=== PATIENT | female | born 1965 | race Hispanic/Latino ===

== ENCOUNTER 2022-05-24 23:47 | Inpatient (IN) | payer MEDICARE ==
[~2022-05-24] VITALS: Ht 165.1 cm; Wt 83.7 kg
[~2022-05-24 23:47] MED LIST: AEC81 PO; AMIT50TA3 PO; ATOR40TA71 PO; BISA10SU11 RC; CYCL-309 PO; GABA600T10 PO; HYDR200T4 PO; HYDR50CA50 PO; LEVO125T11 PO; LINA290C PO; LISI5TAB21 PO; ONDA-105 PO; PANT40TA55 PO; POLY17PO4 PO; PROM25TA7 PO; ROPI0.5T7 PO; SULF500T8 PO; TAMS-1 PO; TOPI50TA24 PO; TRAM50TA4 PO; TRAZ-253 PO; VENL75CA97 PO
[2022-05-25] MEDS ORDERED: ONDANSETRON 4MG INJ IVP ONE (00:30)
[2022-05-25] MEDS ORDERED: ACETAMINOPHEN 325 MG TAB PO PRN (01:30)
[2022-05-25 01:55] LABS: BASOPHILS % (AUTO) 1.9 % (0.0-5.0); EOSINOPHILS % (AUTO) 1.2 % (0.0-8.0); HEMATOCRIT 32.6 % (36-48); LYMPHOCYTES % (AUTO) 39.4 % (21.0-51.0); MEAN CORPUSCULAR HEMOGLOBIN 30.1 pg (27.0-33.0); MEAN CORPUSCULAR HGB CONC 33.4 g/dL (32.0-36.0); MEAN CORPUSCULAR VOLUME 90.1 fL (79-99); MONOCYTES % (AUTO) 6.4 % (3.0-13.0); NEUTROPHILS % (AUTO) 50.6 % (40.0-77.0); PLATELET COUNT (AUTO) 351 K/uL (130-400); RED BLOOD CELL COUNT(AUTO) 3.62 MIL/uL (4.00-5.50); RED CELL DISTRIBUTION WIDTH 14.7 % (11.0-15.5); WHITE BLOOD COUNT (AUTO) 8.1 K/uL (4.8-10.8)
[2022-05-25 02:03] LABS: CREATININE 0.7 mg/dL (0.5-1.5); POTASSIUM 3.5 mmol/L (3.5-5.1)
[2022-05-25 02:05] LABS: PROTHROMBIN TIME 10.9 SEC (9.6-11.6)
[2022-05-25] MEDS: ACETAMINOPHEN 325 MG TAB PO PRN ×2 (02:37→09:41)
[2022-05-25 06:00] VITALS: BP 135/71
[2022-05-25 08:00] VITALS: BP 108/51
[2022-05-25] MEDS: FAMOTIDINE 20MG VIAL IV SCH ×2 (08:55→20:02)
[2022-05-25] MEDS: INSULIN HUMULIN R 100 UNIT/ML 3ML SQ SCH ×2 (11:37→16:45)
[2022-05-25 12:00] VITALS: BP 150/77
[2022-05-25] MEDS ORDERED: LIDOCAINE HCL-MPF 1% 2ML VIAL IV PRN (12:00)
[2022-05-25] MEDS: ONDANSETRON 4MG INJ IV PRN (12:17)
[2022-05-25] MEDS: KETOROLAC 15MG/ML VIAL (15MG/ML) IV PRN ×2 (12:20→20:07)
[2022-05-25] MEDS: POTASSIUM CHLORIDE 20MEQ/100ML 100 ML IV PRN ×2 (12:33→17:15)
[2022-05-25 15:41] VITALS: BP 107/57
[2022-05-25 20:00] VITALS: BP 137/72
[2022-05-26] VITALS (7 sets, daily range): BP systolic 98–139; BP diastolic 53–73
[2022-05-26] MEDS: KETOROLAC 15MG/ML VIAL (15MG/ML) IV PRN ×3 (02:27→20:08)
[2022-05-26] MEDS: INSULIN HUMULIN R 100 UNIT/ML 3ML SQ SCH ×4 (05:41→18:00)
[2022-05-26] MEDS: ONDANSETRON 4MG INJ IV PRN ×2 (05:52→18:29)
[2022-05-26 06:54] LABS: BASOPHILS % (AUTO) 1.5 % (0.0-5.0); EOSINOPHILS % (AUTO) 0.9 % (0.0-8.0); HEMATOCRIT 33.7 % (36-48); LYMPHOCYTES % (AUTO) 33.7 % (21.0-51.0); MEAN CORPUSCULAR HEMOGLOBIN 30.1 pg (27.0-33.0); MEAN CORPUSCULAR HGB CONC 32.9 g/dL (32.0-36.0); MEAN CORPUSCULAR VOLUME 91.3 fL (79-99); MONOCYTES % (AUTO) 7.1 % (3.0-13.0); NEUTROPHILS % (AUTO) 56.2 % (40.0-77.0); PLATELET COUNT (AUTO) 279 K/uL (130-400); RED BLOOD CELL COUNT(AUTO) 3.69 MIL/uL (4.00-5.50); RED CELL DISTRIBUTION WIDTH 14.8 % (11.0-15.5); WHITE BLOOD COUNT (AUTO) 6.8 K/uL (4.8-10.8)
[2022-05-26 08:16] LABS: ALBUMIN 3.5 g/dL (3.5-5.0); CREATININE 0.7 mg/dL (0.5-1.5); TOTAL PROTEIN, SERUM 8.2 g/dL (6.0-8.3)
[2022-05-26] MEDS: FAMOTIDINE 20MG VIAL IV SCH ×2 (09:31→20:03)
[2022-05-26] MEDS: 0.9%NACL 1000ML 1,000 ML IV SCH (14:50)
[2022-05-27] MEDS: KETOROLAC 15MG/ML VIAL (15MG/ML) IV PRN ×3 (03:19→22:40)
[2022-05-27 04:18] VITALS: BP 128/53
[2022-05-27] MEDS: INSULIN HUMULIN R 100 UNIT/ML 3ML SQ SCH ×4 (06:00→18:00)
[2022-05-27] MEDS ORDERED: INSU100V3 SQ (06:09)
[2022-05-27] MEDS ORDERED: MERO1VIA23 IV (06:09)
[2022-05-27] MEDS ORDERED: HYDR59LO10 TP (06:09)
[2022-05-27] MEDS ORDERED: [UNRECOGNIZED DRUG - CODE] PO (06:09)
[2022-05-27] MEDS ORDERED: INSU100V52 SQ (06:09)
[2022-05-27] MEDS ORDERED: TAMS-1 PO (06:09)
[2022-05-27] MEDS ORDERED: ENOX40DI8 SQ (06:09)
[2022-05-27] MEDS ORDERED: ACET-2247 PO (06:09)
[2022-05-27] MEDS ORDERED: PHEN-846 PO (06:09)
[2022-05-27] MEDS ORDERED: DOCU100T PO (06:09)
[2022-05-27 08:47] VITALS: BP 114/62
[2022-05-27] MEDS: 0.9%NACL 1000ML 1,000 ML IV SCH ×3 (09:25→20:00)
[2022-05-27] MEDS: FAMOTIDINE 20MG VIAL IV SCH ×2 (09:26→21:35)
[2022-05-27 12:10] VITALS: BP 135/62
[2022-05-27 12:20] VITALS: BP 125/55
[2022-05-27] MEDS ORDERED: LACTULOSE 20 GM/30 ML UDCUP PO SCH ×2 (12:30→16:30)
[2022-05-27 17:58] VITALS: BP 131/77
[2022-05-27 20:00] VITALS: BP 131/66
[2022-05-28] VITALS: BP 130/51
[2022-05-28 04:00] VITALS: BP 125/60
[2022-05-28] MEDS: KETOROLAC 15MG/ML VIAL (15MG/ML) IV PRN ×3 (05:25→22:03)
[2022-05-28] MEDS: 0.9%NACL 1000ML 1,000 ML IV SCH (05:54)
[2022-05-28] MEDS: INSULIN HUMULIN R 100 UNIT/ML 3ML SQ SCH ×5 (05:54→23:18)
[2022-05-28 08:12] VITALS: BP 129/65
[2022-05-28 08:28] LABS: MEAN CORPUSCULAR HEMOGLOBIN 30.5 pg (27.0-33.0); MEAN CORPUSCULAR HGB CONC 34.6 g/dL (32.0-36.0); MEAN CORPUSCULAR VOLUME 88.1 fL (79-99); RED BLOOD CELL COUNT(AUTO) 3.18 MIL/uL (4.00-5.50); WHITE BLOOD COUNT (AUTO) 5.5 K/uL (4.8-10.8)
[2022-05-28 08:40] LABS: CREATININE 0.5 mg/dL (0.5-1.5); POTASSIUM 3.4 mmol/L (3.5-5.1)
[2022-05-28] MEDS: FAMOTIDINE 20MG VIAL IV SCH ×2 (09:00→20:28)
[2022-05-28 11:45] VITALS: BP 131/65
[2022-05-28] MEDS: LEVOFLOXACIN 750 MG/D5W 150 ML 150 ML IV SCH (12:43)
[2022-05-28] MEDS: POTASSIUM CHLORIDE 20MEQ/100ML 100 ML IV PRN (15:12)
[2022-05-28 16:14] VITALS: BP 156/86
[2022-05-28] MEDS: DOCUSATE SODIUM 100 MG CAP PO SCH (20:28)
[2022-05-28] MEDS: GABAPENTIN 300 MG CAPSULE PO SCH (20:30)
[2022-05-28] MEDS: SULFASALAZINE 500 MG TAB.DR PO SCH (20:30)
[2022-05-28 20:39] VITALS: BP 139/66
[2022-05-28] MEDS ORDERED: ROPINIROLE HCL 1 MG TABLET PO SCH (21:00)
[2022-05-28] MEDS ORDERED: AMITRIPTYLINE 25 MG TABLET PO SCH (21:00)
[2022-05-29] VITALS (8 sets, daily range): BP systolic 124–151; BP diastolic 51–89
[2022-05-29 05:30] LABS: HEMATOCRIT 31.8 % (36-48); MEAN CORPUSCULAR HEMOGLOBIN 30.4 pg (27.0-33.0); MEAN CORPUSCULAR HGB CONC 34.6 g/dL (32.0-36.0); MEAN CORPUSCULAR VOLUME 87.8 fL (79-99); RED BLOOD CELL COUNT(AUTO) 3.62 MIL/uL (4.00-5.50); RED CELL DISTRIBUTION WIDTH 14.3 % (11.0-15.5)
[2022-05-29 05:47] LABS: CREATININE 0.6 mg/dL (0.5-1.5); POTASSIUM 3.6 mmol/L (3.5-5.1)
[2022-05-29] MEDS: ONDANSETRON 4MG INJ IV PRN ×2 (05:57→17:20)
[2022-05-29] MEDS: KETOROLAC 15MG/ML VIAL (15MG/ML) IV PRN ×2 (05:57→17:20)
[2022-05-29] MEDS: INSULIN HUMULIN R 100 UNIT/ML 3ML SQ SCH ×3 (06:00→18:00)
[2022-05-29] MEDS ORDERED: LEVOTHYROXINE 125 MCG TABLET PO SCH (07:30)
[2022-05-29] MEDS ORDERED: CHOLECALCIFEROL 1250 MCG PO SCH (09:00)
[2022-05-29] MEDS ORDERED: HYDROXYCHLOROQUINE SULFATE 200 MG TAB PO SCH (09:00)
[2022-05-29] MEDS ORDERED: ATORVASTATIN 40 MG TABLET PO SCH (09:00)
[2022-05-29] MEDS ORDERED: TAMSULOSIN HCL 0.4 MG CAP.ER.24H PO SCH (09:00)
[2022-05-29] MEDS ORDERED: LISINOPRIL 5 MG TABLET PO SCH (09:00)
[2022-05-29] MEDS ORDERED: ASPIRIN 81 MG EC TAB PO SCH (09:00)
[2022-05-29] MEDS ORDERED: TOPIRAMATE 100 MG TAB PO SCH (09:00)
[2022-05-29] MEDS: LEVOFLOXACIN 750 MG/D5W 150 ML 150 ML IV SCH (11:20)
[2022-05-29] MEDS: SULFASALAZINE 500 MG TAB.DR PO SCH (11:21)
[2022-05-29] MEDS: GABAPENTIN 300 MG CAPSULE PO SCH (11:22)
[2022-05-29] MEDS: DOCUSATE SODIUM 100 MG CAP PO SCH (11:23)
[2022-05-29] MEDS: FAMOTIDINE 20MG VIAL IV SCH (11:25)
[2022-05-29] MEDS ORDERED: LIDOCAINE HCL 1% 20 ML VIAL ONE (15:19)
[2022-05-29] MEDS ORDERED: MIDAZOLAM HCL 1 MG/ML 2ML VIAL ONE (15:20)
[2022-05-29] MEDS ORDERED: FENTANYL CITRATE PF 50 MCG/1 ML 2ML VIAL ONE (15:20)
[2022-05-29] MEDS ORDERED: IODIXANOL 320 MG/ML 100 ML VIAL ONE (15:20)
[2022-05-29] MEDS ORDERED: LEVO750T68 PO (17:33)
== END 2022-05-29 20:15 | disposition home or self-care (01) | DRG 395 ==
LOC: EDH 23:47 → INTOOBSV 05-25 01:17 → OBSVTOIN 05-25 01:17 → EDHIP 05-25 01:17 → 3CH 05-25 05:55
PROVIDERS: ADMIT Hospitalist; ATTEND Hospitalist
PROC: 0D2DXUZ Change Feeding Device in Lower Intestinal Tract, External Approach (ICD-10-PCS; principal; 2022-05-29)
DX: K94.23 Gastrostomy malfunction (principal); E11.43 Type 2 diabetes mellitus with diabetic autonomic (poly)neuropathy; K31.84 Gastroparesis; E11.649 Type 2 diabetes mellitus with hypoglycemia without coma; Z20.822 Contact with and (suspected) exposure to COVID-19; E66.9 Obesity, unspecified; Z68.30 Body mass index [BMI] 30.0-30.9, adult; E03.9 Hypothyroidism, unspecified; E78.5 Hyperlipidemia, unspecified; I10 Essential (primary) hypertension; K59.00 Constipation, unspecified; Z96.82 Presence of neurostimulator; Z95.0 Presence of cardiac pacemaker; Z86.73 Personal history of transient ischemic attack (TIA), and cerebral infarction without residual deficits; Z79.4 Long term (current) use of insulin
CPT/HCPCS: 36415; 49452; 74176; 80048; 80053; 82948; 85025; 85027; 85610; 85651; 85730; 87635; 99156; C1769; G0378; J1644; J1885; J1956; J2250; J2405; J3010; J3480; J3490; Q9967

== ENCOUNTER → 2023-01-13 | Outpatient (CLI) | payer MEDICARE ==
[~2023-01-13] MED LIST changes: +ACET-2247 PO; -BISA10SU11 RC; -CYCL-309 PO; +DOCU100T PO; -HYDR50CA50 PO; +HYDR59LO10 TP; +INSU100V3 SQ; +INSU100V52 SQ; -LINA290C PO; -ONDA-105 PO; +PHEN-846 PO; -PROM25TA7 PO; +TOPI-255 PO; -TOPI50TA24 PO; -TRAM50TA4 PO; -TRAZ-253 PO; -VENL75CA97 PO; +[UNRECOGNIZED DRUG - CODE] PO
== END | disposition home or self-care (01) ==
LOC: RAH 12:04
PROVIDERS: ATTEND Internal Medicine
DX: K59.04 Chronic idiopathic constipation (principal); R11.0 Nausea
CPT/HCPCS: 74018

== ENCOUNTER 2023-06-27 10:10 | Observation (INO) | payer MEDICARE ==
[~2023-06-27] VITALS: Ht 167.6 cm; Wt 79.8 kg
[~2023-06-27 10:10] MED LIST changes: -ACET-2247 PO; -AMIT50TA3 PO; -HYDR200T4 PO; +HYDR200T75 PO; -HYDR59LO10 TP; -INSU100V3 SQ; -INSU100V52 SQ; -LISI5TAB21 PO; -PHEN-846 PO; +ROPI0.5T37 PO; -ROPI0.5T7 PO
[2023-06-27] MEDS ORDERED: MORPHINE 4 MG SYG IVP ONE (11:00)
[2023-06-27] MEDS ORDERED: ONDANSETRON 4MG INJ IVP ONE (11:00)
[2023-06-27] MEDS ORDERED: LACTATED RINGERS 1000ML 1,000 ML IV ONE (11:00)
[2023-06-27 11:14] LABS: BASOPHILS % (AUTO) 1.2 % (0.0-5.0); EOSINOPHILS # (AUTO) 0.09 K/uL (0.00-0.70); EOSINOPHILS % (AUTO) 1.1 % (0.0-8.0); HEMATOCRIT 30.5 % (36-48); IMMATURE GRANULOCYTE ABSOLUTE 0.04 K/uL (0-1); LYMPHOCYTES # (AUTO) 1.7 K/uL (1.0-4.8); LYMPHOCYTES % (AUTO) 20.8 % (21.0-51.0); MEAN CORPUSCULAR HEMOGLOBIN 30.7 pg (27.0-33.0); MEAN CORPUSCULAR HGB CONC 33.1 g/dL (32.0-36.0); MEAN CORPUSCULAR VOLUME 92.7 fL (79-99); MONOCYTES # (AUTO) 0.6 K/uL (0.1-1.0); MONOCYTES % (AUTO) 7.7 % (3.0-13.0); NEUTROPHILS # (AUTO) 5.5 K/uL (1.8-7.7); NEUTROPHILS % (AUTO) 68.7 % (40.0-77.0); PLATELET COUNT (AUTO) 309 K/uL (130-400); RED BLOOD CELL COUNT(AUTO) 3.29 MIL/uL (4.00-5.50); RED CELL DISTRIBUTION WIDTH 12.7 % (11.0-15.5)
[2023-06-27 11:31] LABS: ALBUMIN 3.5 g/dL (3.5-5.0); BILIRUBIN,TOTAL 0.3 mg/dL (0.2-1.0); CREATININE 0.7 mg/dL (0.5-1.5); POTASSIUM 4.1 mmol/L (3.5-5.1); TOTAL PROTEIN, SERUM 7.9 g/dL (6.0-8.3)
[2023-06-27] MEDS ORDERED: DIATR MEGLU/DIATRIZOATE SODIUM 30 ML BOTTLE ONE (11:31)
[2023-06-27 12:15] LABS: APPEARANCE,URINE CLEAR (CLEAR); BILIRUBIN,URINE NEGATIVE (NEGATIVE); COLOR,URINE LIGHT-YELLOW (YELLOW); GLUCOSE, URINE (UA) NEGATIVE (NEGATIVE); KETONES,URINE NEGATIVE (NEGATIVE); LEUKOCYTE ESTERASE ,URINE 75 Leu/uL (NEGATIVE); NITRATE,URINE NEGATIVE (NEGATIVE); OCCULT BLOOD,URINE NEGATIVE (NEGATIVE); PH,URINE 6.5 (5.0-8.0); PROTEIN,URINE NEGATIVE (NEGATIVE); UROBILINOGEN,URINE 0.2 mg/dL (0.2-1.0)
[2023-06-27 12:29] LABS: ADD UA MICROSCOPIC YES
[2023-06-27 12:33] LABS: RBC,URINE 0-1 /HPF (0-1); SQUAMOUS EPITHELIAL CELL,UR RARE /HPF (0-2)
[2023-06-27] MEDS ORDERED: 0.9%NACL 50ML IV SCH (17:00)
[2023-06-27] MEDS: LACTATED RINGERS 1000ML 1,000 ML IV SCH (17:00)
[2023-06-27] MEDS ORDERED: MORPHINE 2 MG SYG IVP ONE (17:00)
[2023-06-27 17:48] LABS: INR 0.94 (0.85-1.15)
[2023-06-27 17:49] LABS: PARTIAL THROMBOPLASTIN TIME 25.8 SEC (26.3-35.5)
[2023-06-27] MEDS: ZOSYN 3.375GM +NS 50ML IVPB SCH (18:06)
[2023-06-27] MEDS: INSULIN HUMULIN R 100 UNIT/ML 3ML SQ SCH (20:23)
[2023-06-27] MEDS: MORPHINE 2 MG SYG IVP PRN (21:47)
[2023-06-28] MEDS: ZOSYN 3.375GM +NS 50ML IVPB SCH ×3 (01:29→17:53)
[2023-06-28] MEDS: LACTATED RINGERS 1000ML 1,000 ML IV SCH ×3 (02:54→23:00)
[2023-06-28 03:04] VITALS: BP 119/77; PULSE 69; RESP 19
[2023-06-28] MEDS: MORPHINE 2 MG SYG IVP PRN ×3 (03:48→18:42)
[2023-06-28] MEDS ORDERED: NALO25TA4 PO (05:48)
[2023-06-28] MEDS ORDERED: ROPI1TAB46 PO (05:48)
[2023-06-28] MEDS ORDERED: LISI5TAB21 PO (05:48)
[2023-06-28] MEDS ORDERED: CYCL-309 PO (05:48)
[2023-06-28] MEDS ORDERED: TRAM50TA4 PO (05:48)
[2023-06-28] MEDS ORDERED: PROM25TA7 PO (05:48)
[2023-06-28] MEDS ORDERED: ESCI-8 PO (05:48)
[2023-06-28] MEDS ORDERED: FAMO40TA7 PO (05:48)
[2023-06-28] MEDS ORDERED: ONDA-105 PO (05:48)
[2023-06-28] MEDS ORDERED: TRAZ-187 PO (05:48)
[2023-06-28] MEDS ORDERED: MECL-226 PO (05:48)
[2023-06-28] MEDS ORDERED: ASPI-1197 PO (05:48)
[2023-06-28] MEDS ORDERED: HYDR200T75 PO (05:48)
[2023-06-28] MEDS ORDERED: LINA290C PO (05:48)
[2023-06-28] MEDS ORDERED: AMIT50TA3 PO (05:48)
[2023-06-28] MEDS ORDERED: MV-M1TAB57 PO (05:48)
[2023-06-28] MEDS: INSULIN HUMULIN R 100 UNIT/ML 3ML SQ SCH ×4 (06:24→21:00)
[2023-06-28 06:39] LABS: BASOPHILS # (AUTO) 0.09 K/uL (0.00-0.20); BASOPHILS % (AUTO) 1.9 % (0.0-5.0); EOSINOPHILS # (AUTO) 0.08 K/uL (0.00-0.70); EOSINOPHILS % (AUTO) 1.7 % (0.0-8.0); HEMATOCRIT 30.2 % (36-48); IMMATURE GRANULOCYTE ABSOLUTE 0.02 K/uL (0-1); LYMPHOCYTES # (AUTO) 1.7 K/uL (1.0-4.8); LYMPHOCYTES % (AUTO) 36.8 % (21.0-51.0); MEAN CORPUSCULAR HEMOGLOBIN 30.1 pg (27.0-33.0); MEAN CORPUSCULAR HGB CONC 32.1 g/dL (32.0-36.0); MEAN CORPUSCULAR VOLUME 93.8 fL (79-99); MONOCYTES # (AUTO) 0.5 K/uL (0.1-1.0); MONOCYTES % (AUTO) 9.5 % (3.0-13.0); NEUTROPHILS # (AUTO) 2.4 K/uL (1.8-7.7); NEUTROPHILS % (AUTO) 49.7 % (40.0-77.0); PLATELET COUNT (AUTO) 287 K/uL (130-400); RED BLOOD CELL COUNT(AUTO) 3.22 MIL/uL (4.00-5.50); WHITE BLOOD COUNT (AUTO) 4.7 K/uL (4.8-10.8)
[2023-06-28 06:46] LABS: CREATININE 0.7 mg/dL (0.5-1.5); MAGNESIUM 1.7 mg/dL (1.80-2.40); POTASSIUM 3.7 mmol/L (3.5-5.1)
[2023-06-28] MEDS ORDERED: MAGNESIUM 2GM PREMIX 50ML 50 ML IV PRN (07:30)
[2023-06-28] MEDS ORDERED: POTASSIUM CHLORIDE 20MEQ/100ML 100 ML IV PRN (07:30)
[2023-06-28 07:38] LABS: HEMOGLOBIN A1C 6.3 % (4.0-6.0)
[2023-06-28 08:00] VITALS: BP 128/55; PULSE 63; RESP 16; O2SAT 98
[2023-06-28] MEDS: KETOROLAC 30MG VIAL (30MG/ML) IV PRN (08:40)
[2023-06-28] MEDS: 0.9%NACL 10ML VIAL IV SCH ×2 (09:41→21:23)
[2023-06-28 12:00] VITALS: BP 138/70; PULSE 66; RESP 16
[2023-06-28 16:00] VITALS: BP 122/64; PULSE 69; RESP 18
[2023-06-28] MEDS ORDERED: LIDOCAINE HCL 1% MDV 50ML VIAL ONE (16:01)
[2023-06-28] MEDS ORDERED: IODIXANOL 320 MG/ML 100 ML VIAL ONE (16:01)
[2023-06-28] MEDS ORDERED: FENTANYL CITRATE PF 50 MCG/1 ML 2ML VIAL ONE ×2 (16:16→16:46)
[2023-06-28] MEDS ORDERED: MIDAZOLAM HCL 1 MG/ML 2ML VIAL ONE (16:17)
[2023-06-28 20:29] VITALS: BP 105/50; PULSE 69; RESP 18
[2023-06-28 22:09] VITALS: O2SAT 98
[2023-06-29 00:07] VITALS: BP 111/59; PULSE 61; RESP 18
[2023-06-29] MEDS: ZOSYN 3.375GM +NS 50ML IVPB SCH ×2 (00:35→09:34)
[2023-06-29] MEDS: KETOROLAC 30MG VIAL (30MG/ML) IV PRN (00:39)
[2023-06-29 04:11] VITALS: BP 116/63; PULSE 61; RESP 18
[2023-06-29 05:23] LABS: HEMATOCRIT 29.3 % (36-48); MEAN CORPUSCULAR HEMOGLOBIN 30.6 pg (27.0-33.0); MEAN CORPUSCULAR HGB CONC 33.4 g/dL (32.0-36.0); MEAN CORPUSCULAR VOLUME 91.6 fL (79-99); RED BLOOD CELL COUNT(AUTO) 3.2 MIL/uL (4.00-5.50); RED CELL DISTRIBUTION WIDTH 12.5 % (11.0-15.5); WHITE BLOOD COUNT (AUTO) 4.2 K/uL (4.8-10.8)
[2023-06-29 05:36] LABS: ALBUMIN 2.8 g/dL (3.5-5.0); BILIRUBIN,TOTAL 0.3 mg/dL (0.2-1.0); CREATININE 0.6 mg/dL (0.5-1.5); MAGNESIUM 1.9 mg/dL (1.80-2.40); POTASSIUM 3.7 mmol/L (3.5-5.1); TOTAL PROTEIN, SERUM 6.8 g/dL (6.0-8.3)
[2023-06-29] MEDS: INSULIN HUMULIN R 100 UNIT/ML 3ML SQ SCH ×2 (06:40→11:30)
[2023-06-29] MEDS ORDERED: LEVOTHYROXINE 125 MCG TABLET PO SCH (07:30)
[2023-06-29] MEDS: MORPHINE 2 MG SYG IVP PRN (07:53)
[2023-06-29 08:00] VITALS: BP 152/75; PULSE 69; RESP 18; O2SAT 100
[2023-06-29] MEDS ORDERED: DOCUSATE SODIUM 100 MG CAP PO PRN (08:30)
[2023-06-29] MEDS ORDERED: ATORVASTATIN 40 MG TABLET PO SCH (09:00)
[2023-06-29] MEDS ORDERED: CITALOPRAM 20 MG TABLET PO SCH (09:00)
[2023-06-29] MEDS ORDERED: AMITRIPTYLINE HCL 50 MG PO SCH (09:00)
[2023-06-29] MEDS ORDERED: AMITRIPTYLINE 25 MG TABLET PO SCH (09:00)
[2023-06-29] MEDS ORDERED: HYDROXYCHLOROQUINE SULFATE 200 MG TAB PO SCH (09:00)
[2023-06-29] MEDS ORDERED: PANTOPRAZOLE 40 MG TAB DR PO SCH (09:00)
[2023-06-29] MEDS ORDERED: NON-FORMULARY MEDICATION 1 EACH (Docusate Sodium 100 MG) PO SCH (09:00)
[2023-06-29] MEDS: 0.9%NACL 10ML VIAL IV SCH (09:34)
[2023-06-29] MEDS: LACTATED RINGERS 1000ML 1,000 ML IV SCH (09:34)
[2023-06-29 12:00] VITALS: BP 143/73; PULSE 68; RESP 18
[2023-06-29] MEDS ORDERED: LISINOPRIL 5 MG TABLET PO SCH (12:00)
[2023-06-29] MEDS ORDERED: ACETAMINOPHEN WITH CODEINE 1 TAB TAB PO ONE (16:00)
[2023-06-29] MEDS ORDERED: HEPARIN PF LOCK 500 UNIT/5ML IV ONE (16:00)
[2023-06-29] MEDS ORDERED: ROPINIROLE HCL 1 MG TABLET PO SCH (21:00)
[2023-06-29] MEDS ORDERED: TRAZODONE HCL 100 MG TABLET PO SCH (21:00)
[2023-06-29] MEDS ORDERED: NON-FORMULARY MEDICATION 1 EACH (Escitalopram Oxalate 10 MG) PO SCH (21:00)
[2023-06-29] MEDS ORDERED: ASPIRIN 81MG CHEW TAB PO SCH (21:00)
== END 2023-06-29 20:18 | disposition home or self-care (01) ==
LOC: EDH 10:10 → INTOOBSV 16:50 → EDHIP 16:50 → 3BH 06-28 02:56
PROVIDERS: ADMIT Internal Medicine; ATTEND Internal Medicine
DX: Z46.59 Encounter for fitting and adjustment of other gastrointestinal appliance and device (principal); E11.43 Type 2 diabetes mellitus with diabetic autonomic (poly)neuropathy; K31.84 Gastroparesis; K59.00 Constipation, unspecified; R11.2 Nausea with vomiting, unspecified; I10 Essential (primary) hypertension; E78.5 Hyperlipidemia, unspecified; E03.9 Hypothyroidism, unspecified; E78.00 Pure hypercholesterolemia, unspecified; E83.42 Hypomagnesemia; L03.90 Cellulitis, unspecified; Z95.0 Presence of cardiac pacemaker; Z96.41 Presence of insulin pump (external) (internal); Z96.82 Presence of neurostimulator; Z86.73 Personal history of transient ischemic attack (TIA), and cerebral infarction without residual deficits; Z79.899 Other long term (current) drug therapy; Z79.82 Long term (current) use of aspirin
CPT/HCPCS: 96376 ×4; 96361 ×3; 96365; 96366 ×4; 96375 ×3; 99285; 80053 ×2; 83690; 85025 ×2; 85610; 85730; 87088; 82948 ×6; 83605; 81001; 36415 ×3; 74176; 49452; 96368; 83036; 83735 ×2; 80048; 85027; J7120 ×3; Q9963; J2270 ×7; J2405; J2543 ×6; C1769 ×2; B4087; G0378 ×30; J3475; J3010 ×2; J2250; J3480; J1885 ×2; J1644; J3490; Q9967; C1750; J1642; C1894; 96367; 99156; 99157

== ENCOUNTER 2023-08-29 13:13 | Inpatient (IN) | payer MEDICARE ==
[~2023-08-29] VITALS: Ht 167.6 cm; Wt 82.6 kg
[~2023-08-29 13:13] MED LIST changes: -AEC81 PO; +AMIT50TA3 PO; +ASPI-1197 PO; +CYCL-309 PO; +ESCI-8 PO; +FAMO40TA7 PO; -GABA600T10 PO; +LINA290C PO; +LISI5TAB21 PO; +MECL-226 PO; +MV-M1TAB57 PO; +NALO25TA4 PO; +ONDA-105 PO; -POLY17PO4 PO; +PROM25TA7 PO; -ROPI0.5T37 PO; +ROPI1TAB46 PO; -TAMS-1 PO; -TOPI-255 PO; +TRAM50TA4 PO; +TRAZ-187 PO; -[UNRECOGNIZED DRUG - CODE] PO
[2023-08-29] MEDS ORDERED: LACTATED RINGERS 1000ML 1,000 ML IV ONE ×2 (14:00→17:30)
[2023-08-29] MEDS ORDERED: MORPHINE 2 MG SYG IVP ONE (14:00)
[2023-08-29] MEDS ORDERED: ONDANSETRON 4MG INJ IVP ONE (14:00)
[2023-08-29] MEDS ORDERED: IOHEXOL-350 75 ML VIAL IV ONE (14:08)
[2023-08-29 14:46] LABS: BASOPHILS # (AUTO) 0.06 K/uL (0.00-0.20); BASOPHILS % (AUTO) 1.2 % (0.0-5.0); EOSINOPHILS # (AUTO) 0.07 K/uL (0.00-0.70); EOSINOPHILS % (AUTO) 1.4 % (0.0-8.0); HEMATOCRIT 31.6 % (36-48); IMMATURE GRANULOCYTE ABSOLUTE 0.01 K/uL (0-1); LYMPHOCYTES # (AUTO) 1.4 K/uL (1.0-4.8); LYMPHOCYTES % (AUTO) 29.4 % (21.0-51.0); MEAN CORPUSCULAR HEMOGLOBIN 29.8 pg (27.0-33.0); MEAN CORPUSCULAR HGB CONC 33.2 g/dL (32.0-36.0); MEAN CORPUSCULAR VOLUME 89.8 fL (79-99); MONOCYTES # (AUTO) 0.4 K/uL (0.1-1.0); MONOCYTES % (AUTO) 8.5 % (3.0-13.0); NEUTROPHILS # (AUTO) 2.9 K/uL (1.8-7.7); NEUTROPHILS % (AUTO) 59.3 % (40.0-77.0); PLATELET COUNT (AUTO) 304 K/uL (130-400); RED BLOOD CELL COUNT(AUTO) 3.52 MIL/uL (4.00-5.50); RED CELL DISTRIBUTION WIDTH 12.9 % (11.0-15.5); WHITE BLOOD COUNT (AUTO) 4.8 K/uL (4.8-10.8)
[2023-08-29 14:56] LABS: CREATININE 0.8 mg/dL (0.5-1.5); POTASSIUM 3.6 mmol/L (3.5-5.1)
[2023-08-29 15:00] LABS: BILIRUBIN,TOTAL 0.2 mg/dL (0.2-1.0); TOTAL PROTEIN, SERUM 7.3 g/dL (6.0-8.3)
[2023-08-29 15:16] LABS: ADD UA MICROSCOPIC YES; APPEARANCE,URINE CLEAR (CLEAR); BILIRUBIN,URINE NEGATIVE (NEGATIVE); COLOR,URINE COLORLESS (YELLOW); GLUCOSE, URINE (UA) NEGATIVE (NEGATIVE); KETONES,URINE NEGATIVE (NEGATIVE); LEUKOCYTE ESTERASE ,URINE 75 Leu/uL (NEGATIVE); NITRATE,URINE NEGATIVE (NEGATIVE); OCCULT BLOOD,URINE NEGATIVE (NEGATIVE); PROTEIN,URINE NEGATIVE (NEGATIVE); UROBILINOGEN,URINE 0.2 mg/dL (0.2-1.0)
[2023-08-29 15:21] LABS: HCG,QUALITATIVE URINE NEGATIVE (NEGATIVE)
[2023-08-29 15:46] LABS: RBC,URINE 0-1 /HPF (0-1); SQUAMOUS EPITHELIAL CELL,UR RARE /HPF (0-2)
[2023-08-29] MEDS ORDERED: MORPHINE 2 MG SYG IVP STA (16:44)
[2023-08-29] MEDS ORDERED: GLUCAGON 1MG KIT 1 MG ML IM PRN (18:30)
[2023-08-29] MEDS ORDERED: MORPHINE 4 MG SYG IV PRN (18:30)
[2023-08-29] MEDS ORDERED: POTASSIUM CHLORIDE 20MEQ/100ML 100 ML IV PRN (18:30)
[2023-08-29] MEDS: LACTATED RINGERS 1000ML 1,000 ML IV SCH (18:30)
[2023-08-29] MEDS ORDERED: DEXTROSE 50%-WATER 50 ML DISP.SYRIN IV PRN (18:30)
[2023-08-29] MEDS ORDERED: CEFTRIAXONE 1G VIAL 2 GM in 0.9%NACL 100ML 100 ML IV SCH (18:30)
[2023-08-29 20:21] VITALS: BP 89/37; PULSE 73; RESP 16
[2023-08-29] MEDS: INSULIN HUMULIN R 100 UNIT/ML 3ML SQ SCH (21:00)
[2023-08-29] MEDS: CEFTRIAXONE 2GM VIAL IVPB SCH (21:19)
[2023-08-29] MEDS: ONDANSETRON 4MG INJ IV PRN (22:14)
[2023-08-29] MEDS: MORPHINE 2 MG SYG IV PRN (22:14)
[2023-08-29 22:18] VITALS: BP 110/46
[2023-08-29 22:40] VITALS: O2SAT 99
[2023-08-30] VITALS (7 sets, daily range): BP systolic 91–127; BP diastolic 55–79; PULSE 72–77; RESP 16–18; O2SAT 99
[2023-08-30] MEDS: ONDANSETRON 4MG INJ IV PRN ×3 (04:22→21:12)
[2023-08-30] MEDS: MORPHINE 2 MG SYG IV PRN ×3 (04:23→21:22)
[2023-08-30 05:58] LABS: BASOPHILS # (AUTO) 0.07 K/uL (0.00-0.20); BASOPHILS % (AUTO) 1.6 % (0.0-5.0); EOSINOPHILS # (AUTO) 0.07 K/uL (0.00-0.70); EOSINOPHILS % (AUTO) 1.6 % (0.0-8.0); HEMATOCRIT 33.7 % (36-48); IMMATURE GRANULOCYTE ABSOLUTE 0.02 K/uL (0-1); LYMPHOCYTES # (AUTO) 1.7 K/uL (1.0-4.8); LYMPHOCYTES % (AUTO) 40.6 % (21.0-51.0); MEAN CORPUSCULAR HEMOGLOBIN 29.6 pg (27.0-33.0); MEAN CORPUSCULAR HGB CONC 31.8 g/dL (32.0-36.0); MEAN CORPUSCULAR VOLUME 93.1 fL (79-99); MONOCYTES # (AUTO) 0.3 K/uL (0.1-1.0); NEUTROPHILS % (AUTO) 47.7 % (40.0-77.0); PLATELET COUNT (AUTO) 175 K/uL (130-400); RED BLOOD CELL COUNT(AUTO) 3.62 MIL/uL (4.00-5.50); RED CELL DISTRIBUTION WIDTH 12.9 % (11.0-15.5); WHITE BLOOD COUNT (AUTO) 4.3 K/uL (4.8-10.8)
[2023-08-30 06:10] LABS: INR 1.01 (0.85-1.15); PARTIAL THROMBOPLASTIN TIME < 20.0 SEC (26.3-35.5); PROTHROMBIN TIME 10.9 SEC (9.6-11.6)
[2023-08-30 06:18] LABS: HEMOGLOBIN A1C 8.2 % (4.0-6.0)
[2023-08-30 06:22] LABS: CREATININE 0.7 mg/dL (0.5-1.5); MAGNESIUM 1.7 mg/dL (1.80-2.40); PHOSPHORUS 3.9 mg/dL (2.5-4.9); POTASSIUM 3.4 mmol/L (3.5-5.1); THYROID STIMULATING HORMONE 0.08 uIU/mL (0.36-3.74)
[2023-08-30] MEDS: INSULIN HUMULIN R 100 UNIT/ML 3ML SQ SCH ×4 (06:32→20:39)
[2023-08-30] MEDS: MAGNESIUM 2GM PREMIX 50ML 50 ML IV PRN (06:40)
[2023-08-30] MEDS: FAMOTIDINE 20MG VIAL IV SCH (10:01)
[2023-08-30] MEDS: LACTATED RINGERS 1000ML 1,000 ML IV SCH ×2 (10:17→20:35)
[2023-08-30] MEDS ORDERED: MAGNESIUM 2GM PREMIX 50ML 50 ML IV SCH (13:00)
[2023-08-30] MEDS ORDERED: KCL 20 MEQ ERTAB PO ONE (13:00)
[2023-08-30] MEDS: CEFTRIAXONE 2GM VIAL IVPB SCH (20:35)
[2023-08-31] VITALS (7 sets, daily range): BP systolic 113–159; BP diastolic 52–83; PULSE 80–91; RESP 16–18; O2SAT 100
[2023-08-31] MEDS: MORPHINE 2 MG SYG IV PRN ×4 (03:42→23:04)
[2023-08-31] MEDS: INSULIN HUMULIN R 100 UNIT/ML 3ML SQ SCH ×2 (05:44→19:29)
[2023-08-31 06:09] LABS: HEMATOCRIT 32.2 % (36-48); MEAN CORPUSCULAR HGB CONC 32.6 g/dL (32.0-36.0); RED BLOOD CELL COUNT(AUTO) 3.5 MIL/uL (4.00-5.50); RED CELL DISTRIBUTION WIDTH 12.5 % (11.0-15.5); WHITE BLOOD COUNT (AUTO) 5.4 K/uL (4.8-10.8)
[2023-08-31 06:30] LABS: ALBUMIN 2.8 g/dL (3.5-5.0); BILIRUBIN,TOTAL 0.3 mg/dL (0.2-1.0); CREATININE 0.7 mg/dL (0.5-1.5); MAGNESIUM 1.7 mg/dL (1.80-2.40); TOTAL PROTEIN, SERUM 7.1 g/dL (6.0-8.3)
[2023-08-31] MEDS: MAGNESIUM 2GM PREMIX 50ML 50 ML IV PRN (06:46)
[2023-08-31] MEDS: FAMOTIDINE 20MG VIAL IV SCH (09:05)
[2023-08-31] MEDS: ONDANSETRON 4MG INJ IV PRN ×2 (09:05→17:19)
[2023-08-31] MEDS ORDERED: LACTULOSE 20 GM/30 ML UDCUP PO ONE (19:30)
[2023-08-31] MEDS: CEFTRIAXONE 2GM VIAL IVPB SCH (20:31)
[2023-09-01] VITALS (8 sets, daily range): BP systolic 92–143; BP diastolic 57–87; PULSE 66–93; RESP 16–18; O2SAT 100
[2023-09-01] MEDS: MORPHINE 2 MG SYG IV PRN ×4 (03:01→23:50)
[2023-09-01] MEDS: ONDANSETRON 4MG INJ IV PRN ×4 (03:01→23:44)
[2023-09-01 05:24] LABS: HEMATOCRIT 33.5 % (36-48); MEAN CORPUSCULAR HGB CONC 33.7 g/dL (32.0-36.0); MEAN CORPUSCULAR VOLUME 88.9 fL (79-99); RED BLOOD CELL COUNT(AUTO) 3.77 MIL/uL (4.00-5.50); RED CELL DISTRIBUTION WIDTH 12.6 % (11.0-15.5); WHITE BLOOD COUNT (AUTO) 5.6 K/uL (4.8-10.8)
[2023-09-01] MEDS: INSULIN HUMULIN R 100 UNIT/ML 3ML SQ SCH ×4 (05:39→20:08)
[2023-09-01 05:42] LABS: ALBUMIN 2.8 g/dL (3.5-5.0); BILIRUBIN,TOTAL 0.2 mg/dL (0.2-1.0); CREATININE 0.6 mg/dL (0.5-1.5); MAGNESIUM 1.7 mg/dL (1.80-2.40); POTASSIUM 3.7 mmol/L (3.5-5.1); TOTAL PROTEIN, SERUM 7.1 g/dL (6.0-8.3)
[2023-09-01] MEDS: MAGNESIUM 2GM PREMIX 50ML 50 ML IV PRN (06:57)
[2023-09-01] MEDS ORDERED: MAGNESIUM 2GM PREMIX 50ML 50 ML IV SCH (09:30)
[2023-09-01] MEDS: FAMOTIDINE 20MG VIAL IV SCH (09:37)
[2023-09-01] MEDS: CEFTRIAXONE 2GM VIAL IVPB SCH (20:06)
[2023-09-02 03:00] VITALS: BP 158/80; PULSE 81; RESP 16
[2023-09-02] MEDS: MORPHINE 2 MG SYG IV PRN ×2 (05:23→12:51)
[2023-09-02] MEDS: ONDANSETRON 4MG INJ IV PRN ×2 (06:03→12:51)
[2023-09-02] MEDS: INSULIN HUMULIN R 100 UNIT/ML 3ML SQ SCH ×2 (06:07→11:30)
[2023-09-02 07:07] LABS: HEMATOCRIT 31.4 % (36-48); MEAN CORPUSCULAR HEMOGLOBIN 29.6 pg (27.0-33.0); MEAN CORPUSCULAR HGB CONC 33.8 g/dL (32.0-36.0); MEAN CORPUSCULAR VOLUME 87.7 fL (79-99); RED BLOOD CELL COUNT(AUTO) 3.58 MIL/uL (4.00-5.50); RED CELL DISTRIBUTION WIDTH 12.5 % (11.0-15.5); WHITE BLOOD COUNT (AUTO) 4.9 K/uL (4.8-10.8)
[2023-09-02 07:27] LABS: ALBUMIN 2.8 g/dL (3.5-5.0); BILIRUBIN,TOTAL 0.2 mg/dL (0.2-1.0); CREATININE 0.6 mg/dL (0.5-1.5); MAGNESIUM 1.5 mg/dL (1.80-2.40); POTASSIUM 3.8 mmol/L (3.5-5.1); TOTAL PROTEIN, SERUM 7.1 g/dL (6.0-8.3)
[2023-09-02 07:40] VITALS: O2SAT 98
[2023-09-02 07:48] VITALS: BP 91/50; PULSE 69; RESP 18
[2023-09-02] MEDS: FAMOTIDINE 20MG VIAL IV SCH (09:41)
[2023-09-02 11:25] VITALS: BP 141/69; PULSE 73; RESP 18
[2023-09-02] MEDS ORDERED: MAGNESIUM 2GM PREMIX 50ML 50 ML IV SCH (14:30)
[2023-09-02] MEDS ORDERED: HEPARIN PF LOCK 500 UNIT/5ML IV SCH (17:30)
== END 2023-09-02 17:35 | disposition home or self-care (01) | DRG 389 ==
LOC: EDH 13:13 → EDHIP 18:30 → 3CH 22:35
PROVIDERS: ADMIT Internal Medicine; ATTEND Internal Medicine
DX: K56.609 Unspecified intestinal obstruction, unspecified as to partial versus complete obstruction (principal); N39.0 Urinary tract infection, site not specified; E03.9 Hypothyroidism, unspecified; E78.00 Pure hypercholesterolemia, unspecified; I10 Essential (primary) hypertension; E11.9 Type 2 diabetes mellitus without complications; K59.00 Constipation, unspecified; Z88.1 Allergy status to other antibiotic agents; Z88.8 Allergy status to other drugs, medicaments and biological substances; Z86.73 Personal history of transient ischemic attack (TIA), and cerebral infarction without residual deficits; Z90.49 Acquired absence of other specified parts of digestive tract
CPT/HCPCS: 36415; 74176; 80048; 80053; 81001; 81025; 82948; 83036; 83605; 83690; 83735; 84100; 84443; 85025; 85027; 85610; 85730; 86850; 86900; 86901; 87040; 87088; 93005; 96374; 96375; G0378; J0696; J1642; J1815; J2270; J2405; J3475; J3480; J3490; J7120; Q9967

== ENCOUNTER 2023-09-30 10:26 | Emergency (ER) | payer MEDICARE ==
[~2023-09-30] VITALS: Ht 167.6 cm; Wt 77.6 kg
[~2023-09-30 10:26] MED LIST changes: -ATOR40TA71 PO; -DOCU100T PO; -LEVO125T11 PO; -PANT40TA55 PO; -SULF500T8 PO
[2023-09-30 10:33] VITALS: BP 110/87; PULSE 79; RESP 22
[2023-09-30 11:21] LABS: BASOPHILS # (AUTO) 0.09 K/uL (0.00-0.20); EOSINOPHILS % (AUTO) 2.2 % (0.0-8.0); HEMATOCRIT 36.5 % (36-48); IMMATURE GRANULOCYTE ABSOLUTE 0.01 K/uL (0-1); LYMPHOCYTES # (AUTO) 1.1 K/uL (1.0-4.8); LYMPHOCYTES % (AUTO) 24.5 % (21.0-51.0); MEAN CORPUSCULAR HEMOGLOBIN 29.3 pg (27.0-33.0); MEAN CORPUSCULAR HGB CONC 32.9 g/dL (32.0-36.0); MONOCYTES # (AUTO) 0.4 K/uL (0.1-1.0); MONOCYTES % (AUTO) 7.9 % (3.0-13.0); NEUTROPHILS # (AUTO) 2.9 K/uL (1.8-7.7); NEUTROPHILS % (AUTO) 63.2 % (40.0-77.0); PLATELET COUNT (AUTO) 303 K/uL (130-400); RED CELL DISTRIBUTION WIDTH 12.7 % (11.0-15.5); WHITE BLOOD COUNT (AUTO) 4.5 K/uL (4.8-10.8)
[2023-09-30 11:34] LABS: RAPID GROUP A STREP negative (NEGATIVE); SARS-CoV-2, RNA, NAAT NEGATIVE SARS CoV-2 (NEGATIVE)
[2023-09-30 11:41] LABS: ALBUMIN 3.3 g/dL (3.5-5.0); BILIRUBIN,TOTAL 0.3 mg/dL (0.2-1.0); CREATININE 0.6 mg/dL (0.5-1.5); POTASSIUM 3.9 mmol/L (3.5-5.1); TOTAL PROTEIN, SERUM 7.8 g/dL (6.0-8.3)
[2023-09-30 11:44] LABS: INFLUENZA TYPE A Negative For Type A (NEGATIVE); INFLUENZA TYPE B Negative For Type B (NEGATIVE)
[2023-09-30] MEDS ORDERED: LORA10TA7 PO (13:20)
[2023-09-30] MEDS ORDERED: FLUT16H NASAL (13:20)
[2023-09-30] MEDS ORDERED: BENZ200C53 PO (13:20)
[2023-09-30] MEDS ORDERED: IBUP-2070 PO (13:20)
== END 2023-09-30 14:44 | disposition home or self-care (01) ==
LOC: EDH 10:26
DX: J00 Acute nasopharyngitis [common cold] (principal); E11.9 Type 2 diabetes mellitus without complications; I10 Essential (primary) hypertension; Z79.82 Long term (current) use of aspirin; Z90.49 Acquired absence of other specified parts of digestive tract; Z20.822 Contact with and (suspected) exposure to COVID-19
CPT/HCPCS: 36415; 71045; 80053; 83690; 84484; 85025; 87635; 87804; 87880; 93005

== ENCOUNTER 2023-10-06 12:47 | Emergency (ER) | payer MEDICARE ==
[~2023-10-06] VITALS: Ht 152.4 cm; Wt 75.7 kg
[~2023-10-06 12:47] MED LIST changes: +BENZ200C53 PO; +FLUT16H NASAL; +IBUP-2070 PO; +LORA10TA7 PO
[2023-10-06 13:32] LABS: BASOPHILS # (AUTO) 0.06 K/uL (0.00-0.20); EOSINOPHILS # (AUTO) 0.12 K/uL (0.00-0.70); EOSINOPHILS % (AUTO) 1.9 % (0.0-8.0); HEMATOCRIT 34.5 % (36-48); IMMATURE GRANULOCYTE ABSOLUTE 0.03 K/uL (0-1); LYMPHOCYTES # (AUTO) 1.7 K/uL (1.0-4.8); LYMPHOCYTES % (AUTO) 27.4 % (21.0-51.0); MEAN CORPUSCULAR HEMOGLOBIN 28.8 pg (27.0-33.0); MEAN CORPUSCULAR HGB CONC 33.6 g/dL (32.0-36.0); MEAN CORPUSCULAR VOLUME 85.6 fL (79-99); MONOCYTES # (AUTO) 0.4 K/uL (0.1-1.0); MONOCYTES % (AUTO) 6.4 % (3.0-13.0); NEUTROPHILS # (AUTO) 3.9 K/uL (1.8-7.7); NEUTROPHILS % (AUTO) 62.8 % (40.0-77.0); PLATELET COUNT (AUTO) 326 K/uL (130-400); RED BLOOD CELL COUNT(AUTO) 4.03 MIL/uL (4.00-5.50); RED CELL DISTRIBUTION WIDTH 12.5 % (11.0-15.5); WHITE BLOOD COUNT (AUTO) 6.2 K/uL (4.8-10.8)
[2023-10-06 13:35] LABS: RAPID GROUP A STREP negative (NEGATIVE)
[2023-10-06 13:38] LABS: SARS-CoV-2, RNA, NAAT NEGATIVE SARS CoV-2 (NEGATIVE)
[2023-10-06 13:43] LABS: CREATININE 0.9 mg/dL (0.5-1.5); POTASSIUM 3.2 mmol/L (3.5-5.1)
[2023-10-06 13:44] LABS: INFLUENZA TYPE A Negative For Type A (NEGATIVE); INFLUENZA TYPE B Negative For Type B (NEGATIVE)
[2023-10-06 13:47] LABS: ALBUMIN 3.3 g/dL (3.5-5.0); BILIRUBIN,TOTAL 0.4 mg/dL (0.2-1.0); TOTAL PROTEIN, SERUM 7.8 g/dL (6.0-8.3)
[2023-10-06] MEDS ORDERED: ONDA4TAB10 PO (16:30)
[2023-10-06] MEDS ORDERED: BENZ-39 PO (16:30)
[2023-10-06] MEDS ORDERED: KCL 20 MEQ ERTAB PO ONE (16:30)
[2023-10-06] MEDS ORDERED: DEXAMETHASONE SOD PHOSPHATE 4 MG/ML 1ML VIAL IM ONE (16:30)
[2023-10-06] MEDS ORDERED: BUDE90AE IH (16:30)
[2023-10-06 16:42] VITALS: BP 117/47; PULSE 90; RESP 18; O2SAT 100
== END 2023-10-06 16:50 | disposition home or self-care (01) ==
LOC: EDH 12:47
DX: J06.9 Acute upper respiratory infection, unspecified (principal); R05.9 Cough, unspecified; E86.0 Dehydration; R11.10 Vomiting, unspecified; E11.65 Type 2 diabetes mellitus with hyperglycemia; E87.6 Hypokalemia; R53.1 Weakness; I10 Essential (primary) hypertension; Z90.49 Acquired absence of other specified parts of digestive tract; Z20.822 Contact with and (suspected) exposure to COVID-19
CPT/HCPCS: 99285; 84484; 80053; 85025; 87880; 87804 ×2; 36415; 87635; 71045; 96372; 93005; J1100

== ENCOUNTER 2023-12-28 17:09 | Emergency (ER) | payer MEDICARE ==
[~2023-12-28] VITALS: Ht 167.6 cm; Wt 79.8 kg
[~2023-12-28 17:09] MED LIST changes: +BENZ-39 PO; +BUDE90AE IH; +NALO25TA PO; -NALO25TA4 PO; +ONDA4TAB10 PO
[2023-12-28 19:24] LABS: BASOPHILS # (AUTO) 0.07 K/uL (0.00-0.20); BASOPHILS % (AUTO) 1.2 % (0.0-5.0); EOSINOPHILS % (AUTO) 1.8 % (0.0-8.0); HEMATOCRIT 34.1 % (36-48); IMMATURE GRANULOCYTE ABSOLUTE 0.02 K/uL (0-1); LYMPHOCYTES # (AUTO) 2.3 K/uL (1.0-4.8); LYMPHOCYTES % (AUTO) 41.1 % (21.0-51.0); MEAN CORPUSCULAR HEMOGLOBIN 28.9 pg (27.0-33.0); MEAN CORPUSCULAR HGB CONC 32.3 g/dL (32.0-36.0); MEAN CORPUSCULAR VOLUME 89.5 fL (79-99); MONOCYTES # (AUTO) 0.4 K/uL (0.1-1.0); MONOCYTES % (AUTO) 6.3 % (3.0-13.0); NEUTROPHILS # (AUTO) 2.8 K/uL (1.8-7.7); NEUTROPHILS % (AUTO) 49.2 % (40.0-77.0); PLATELET COUNT (AUTO) 129 K/uL (130-400); RED BLOOD CELL COUNT(AUTO) 3.81 MIL/uL (4.00-5.50); RED CELL DISTRIBUTION WIDTH 13.2 % (11.0-15.5); WHITE BLOOD COUNT (AUTO) 5.7 K/uL (4.8-10.8)
[2023-12-28 19:37] LABS: CREATININE 0.7 mg/dL (0.5-1.0)
[2023-12-28 19:41] LABS: ALBUMIN 3.1 g/dL (3.5-5.0); BILIRUBIN,TOTAL 0.1 mg/dL (0.2-1.0); TOTAL PROTEIN, SERUM 7.2 g/dL (6.0-8.3)
[2023-12-28] MEDS: ONDANSETRON 4MG INJ IVP ONE (21:18)
[2023-12-28] MEDS: MORPHINE 4 MG SYG IVP ONE (21:18)
[2023-12-28] MEDS: FAMOTIDINE 20MG VIAL IV ONE (21:19)
[2023-12-28] MEDS: 0.9%NACL 1000ML 1,000 ML IV ONE (21:19)
[2023-12-28] MEDS ORDERED: IOHEXOL 350 MG/ML 100ML INFUS..BTL IV ONE (21:38)
[2023-12-28] MEDS ORDERED: POLY17PO4 PO (22:48)
[2023-12-28] MEDS: KETOROLAC 30MG VIAL (30MG/ML) IVP ONE (22:51)
[2023-12-28] MEDS: LACTULOSE 20 GM/30 ML UDCUP PO ONE (22:51)
[2023-12-28 22:53] VITALS: BP 141/67; PULSE 73; RESP 17; O2SAT 96
== END 2023-12-28 23:05 | disposition home or self-care (01) ==
LOC: EDH 17:09
DX: K59.00 Constipation, unspecified (principal); E11.9 Type 2 diabetes mellitus without complications; K21.9 Gastro-esophageal reflux disease without esophagitis; Z79.51 Long term (current) use of inhaled steroids; Z79.82 Long term (current) use of aspirin
CPT/HCPCS: 99285; 74177; 96374; 96375; 80053; 83690; 85025; 82948; 36415; J3490; J2405; J2270; Q9967

== ENCOUNTER 2025-05-27 18:54 | Inpatient (IN) | payer MEDICARE ==
[~2025-05-27] VITALS: Ht 167.6 cm; Wt 79.8 kg
[~2025-05-27 18:54] MED LIST changes: +AMIT50TA14 PO; -AMIT50TA3 PO; -BUDE90AE IH; +BUDE90AE3 IH; +GOLY4L PO; +IBUP-1492 PO; -IBUP-2070 PO; +METO10TA41 PO; -NALO25TA PO; +NALO25TA4 PO; +ONDA-243 PO; -ONDA4TAB10 PO; +POLY17PO4 PO
--- NOTE | 2025-05-27 19:06 | ERN ---
ED Note History of Present Illness Stated Complaint: ABDOMINAL PAIN Chief Complaint: Abdominal Pain Time Seen by MD: 18:58 Dictation: PATIENT IS A 59-YEAR-OLD FEMALE COMING IN WITH HER SON WITH COMPLAINTS OF EPIGASTRIC PAIN AND LEFT UPPER QUADRANT WITH NAUSEA VOMITING AND FEELING VERY THIRSTY SINCE WEDNESDAY. NO CHEST PAIN NO BACK PAIN NO SOB. SHE STATES HER BLOOD SUGARS HAVE BEEN VERY HIGH, TODAY IT WAS GREATER THAN 390. SHE HAS NOT BEEN TO SEE HER PRIMARY CARE DOCTOR. STATES SHE IS COMPLIANT WITH HER MEDICATIONS. Allergies: Coded Allergies: clarithromycin (Verified Allergy, Unknown, 05/02/22) metoclopramide (Unverified Allergy, Unknown, 05/02/22) Home Meds Active Scripts Lactulose (Lactulose) 10 Gram/15 Ml Solution, 30 ML PO BID for constipation, #500 ML 0 Refills Prov:KENTRELL LE NP 05/27/25 Metoclopramide HCl (Reglan 10 mg Tab) 10 Mg Tablet, 10 MG PO Q6HPRN PRN for Nausea vomiting, #30 TAB Prov:KENTRELL LE NP 06/15/24 Peg 3350/Na Sulf,Bicarb,Cl/KCl (Golytely/Colyte Soln) 236-22.74G Soln, 4000 ML PO AD, #1 UNIT Mixed as directed, drink one cup every 10-15 minute in until stools are clear Prov:KENTRELL LE NP 06/15/24 Polyethylene Glycol 3350 (Miralax) 17 Gram Powd.pack, 17 GM PO DAILY for 5 Days, #5 EA Prov:SOILA BEDOYA [employer] 12/28/23 Ondansetron (Ondansetron Odt) 4 Mg Tab.rapdis, 4 MG PO Q6HPRN PRN for VOMITING, #15 TAB Prov:KENTRELL LE NP 10/06/23 Benzonatate (Tessalon Perles) 100 Mg Cap, 100 MG PO TID for cough, #30 CAP 0 Refills Prov:KENTRELL LE NP 10/06/23 Budesonide (Pulmicort Flexhaler) 90 Mcg Aer.pow.ba, 90 MCG IH BID for 10 Days, #1 UNIT Prov:KENTRELL LE NP 10/06/23 Ibuprofen (Ibuprofen) 600 Mg Tablet, 600 MG PO Q6H PRN for PAIN, #30 TAB Prov:[facility] 09/30/23 Loratadine (Loratadine) 10 Mg Tablet, 10 MG PO DAILY, #7 TAB Prov:IRIS [facility] 09/30/23 Fluticasone Propionate (Flonase Nasal [place]) 50 Mcg/Actuation [place], 50 MCG NASAL DAILY PRN for NASAL CONGESTION for 10 Days, #1 SPRAY Prov:IRIS [facility] 09/30/23 Benzonatate (Benzonatate) 200 Mg Capsule, 200 MG PO TID PRN for COUGH for 14 Days, #42 CAP Prov:IRIS [facility] 09/30/23 Reported Medications Meclizine HCl (Meclizine HCl) 12.5 Mg Tablet, 12.5 MG PO TID PRN for DIZZINESS, TAB 06/28/23 Tramadol Hcl (Tramadol HCl) 50 Mg Tablet, 50 MG PO QID PRN for PAIN LEVEL 1 TO 5, TAB 06/28/23 Mv-Mn/Folic Acid/Calcium/Vit K (Women's 50 Plus Multivit Tab) 400 Mcg-500 Mg Calcium-20 Mcg Tablet, 1 EACH PO NOON, TAB 06/28/23 Trazodone HCl (Trazodone HCl) 100 Mg Tablet, 100 MG PO HS, TAB 06/28/23 Escitalopram Oxalate (Escitalopram Oxalate) 10 Mg Tablet, 10 MG PO HS, TAB 06/28/23 Famotidine (Famotidine) 40 Mg Tablet, 40 MG PO HS, TAB 06/28/23 Aspirin (Aspirin) 81 Mg Tab.chew, 81 MG PO HS, TAB.CHEW 06/28/23 Ropinirole HCl (Ropinirole HCl) 1 Mg Tablet, 1 MG PO HS, TAB 06/28/23 Ondansetron HCl (Ondansetron HCl) 8 Mg Tablet, 8 MG PO TID, TAB 06/28/23 Lisinopril (Lisinopril) 5 Mg Tablet, 5 MG PO NOON, TAB 06/28/23 Promethazine HCl (Promethazine HCl) 25 Mg Tablet, 25 MG PO TID, TAB 06/28/23 Naloxegol Oxalate (Movantik) 25 Mg Tablet, 25 MG PO DAILY, TAB 06/28/23 Cyclobenzaprine HCl (Cyclobenzaprine HCl) 10 Mg Tablet, 10 MG PO TID, TAB 06/28/23 Amitriptyline HCl (Amitriptyline HCl) 50 Mg Tablet, 50 MG PO BID, TAB 06/28/23 Hydroxychloroquine Sulfate (Hydroxychloroquine Sulfate) 200 Mg Tablet, 200 MG PO BID, TAB 06/28/23 Linaclotide (Linzess) 290 Mcg Capsule, 290 MCG PO DAILY, CAP 06/28/23 Past Medical History Past Medical History: CVA, Diabetes-Type II, High Cholesterol, Hypertension, Hypothyroid, Other Additional Past Medical Hx: lupus, gastroperesis Surgical History: Bariatric Surgery, Surgical History Other: GASTROPERISIS, Social History: Negative, Other History: Not Applicable RN Note Reviewed/Agreed w/PFSH: Yes Review of System Dictation CONSTITUTIONAL: NEGATIVE EXCEPT FOR HPI HEAD/FACE: NEGATIVE EXCEPT FOR HPI EENT: NEGATIVE EXCEPT FOR HPI DRY MOUTH RESPIRATORY: NEGATIVE EXCEPT FOR HPI GASTROINTESTINAL/ABDOMINAL: NEGATIVE EXCEPT FOR HPI EPIGASTRIC LEFT UPPER QUADRANT PAIN WITH NAUSEA VOMITING GENITOURINARY: NEGATIVE EXCEPT FOR HPI MUSCULOSKELETAL: NEGATIVE EXCEPT FOR HPI INTEGUMENTARY: NEGATIVE EXCEPT FOR HPI NEUROLOGICAL/PSYCH: NEGATIVE EXCEPT FOR HPI HEMATOLOGIC/LYMPHATIC: NEGATIVE EXCEPT FOR HPI ALL SYSTEMS NEGATIVE, EXCEPT NOTED ABOVE. 13 POINT REVIEW OF SYSTEMS ASSESSED AND ALL NEGATIVE EXCEPT FOR ABOVE. Initial Vital Sign VS Vital Signs Date Time Temp Pulse Resp B/P (MAP) Pulse Ox O2 Delivery O2 Flow Rate FiO2 05/27/25 18:55 98.4 97 18 130/70 100 Room Air 0 05/27/25 18:59 21 Physical Exam Dictation VITAL SIGNS REVIEWED GENERAL APPEARANCE: ALERT, ORIENTED X 3, NO ACUTE DISTRESS, WELL DEVELOPED, NOURISHED. HEAD AND FACE: NON-TRAUMATIC. EYES: PERRL, PINK CONJUNCTIVAS, EYELID NO TRAUMA, ANTERIOR CHAMBER WITH ARCUS SENILIS. EARS: PINNAS INTACT AND NO SIGNS OF TRAUMA OR ERYTHEMA EAR CANALS CLEAR AND NO DISCHARGE TM NO ERYTHEMA NOSE: NO DISCHARGE, NO BLEEDING. OROPHARYNX: MOUTH LIPS AND MUCOUS MEMBRANES DRY CRACKED. PHARYNX CLEAR,NO ERYTHEMA, TONSILS NO EXUDATES, NO ABSCESSES NOTED, MUCOUS MEMBRANE MOIST NECK: SUPPLE, NON-TENDER, NO THYROMEGALY, NO MASSES, NO JVD, NO BRUITS BREAST:DEFERRED CHEST:NO TENDERNESS, NO CREPITUS, NO PARADOXICAL MOVEMENT, NO RETRACTIONS LUNGS:CLEAR, WELL-VENTILATED, SYMMETRIC, NO RALES, NO WHEEZING, NO RHONCHI, NO STRIDOR, GOOD BREATH SOUNDS BILATERALLY HEART: REGULAR RATE, REGULAR RHYTHM, NO MURMUR, NO GALLOPS VASCULAR: NO PERIPHERAL EDEMA, ABDOMEN: SOFT, POSITIVE BOWEL SOUNDS, NONDISTENDED, NO GUARDING, MILD EPIGASTRIC AND LEFT UPPER QUADRANT TENDERNESS. RECTAL: DEFERRED GENITAL: DEFERRED NEUROLOGICAL: NORMAL SPEECH, MOTOR FUNCTION INTACT, SENSORY FUNCTION INTACT MUSCULOSKELETAL: NECK NONTENDER, FULL RANGE OF MOTION, BACK NONTENDER, FULL RANGE OF MOTION, EXTREMITIES: NONTENDER, FULL RANGE OF MOTION SKIN: COLOR PINK, DRY, NO TURGOR, NO RASH, NO LACERATIONS, NO ABRASIONS, NO CONTUSIONS. LYMPHATIC: DEFERRED Results (Laboratory/Radiology) Laboratory/Radiology Laboratory Tests Test 05/27/25 19:30 05/27/25 20:17 White Blood Count 6.6 K/uL (4.8-10.8) Red Blood Count 3.82 MIL/uL (4.00-5.50) L Hemoglobin 11.8 g/dL (12.0-16.0) L Hematocrit 34.8 % (36-48) L Mean Corpuscular Volume 91.1 fL (79-99) Mean Corpuscular Hemoglobin 30.9 pg (27.0-33.0) Mean Corpuscular Hemoglobin Concent 33.9 g/dL (32.0-36.0) Red Cell Distribution Width 13.4 % (11.0-15.5) Platelet Count 291 K/uL (130-400) Mean Platelet Volume 10.0 fL (7.5-10.5) Immature Granulocyte % (Auto) 0.3 % (0-1) Neutrophils (%) (Auto) 61.5 % (40.0-77.0) Lymphocytes (%) (Auto) 28.7 % (21.0-51.0) Monocytes (%) (Auto) 7.6 % (3.0-13.0) Eosinophils (%) (Auto) 0.8 % (0.0-8.0) Basophils (%) (Auto) 1.1 % (0.0-5.0) Neutrophils # (Auto) 4.0 K/uL (1.8-7.7) Lymphocytes # (Auto) 1.9 K/uL (1.0-4.8) Monocytes # (Auto) 0.5 K/uL (0.1-1.0) Eosinophils # (Auto) 0.05 K/uL (0.00-0.70) Basophils # (Auto) 0.07 K/uL (0.00-0.20) Absolute Immature Granulocyte (auto 0.02 K/uL (0-1) Nucleated Red Blood Cells 0.0 % (0.0-0.19) Sodium Level 136 mmol/L (136-145) Potassium Level 3.8 mmol/L (3.5-5.1) Chloride Level 103 mmol/L (101-111) Carbon Dioxide Level 28 mmol/L (21-32) Blood Urea Nitrogen 14 mg/dL (7-18) Creatinine 0.8 mg/dL (0.5-1.0) Glomerular Filtration Rate Calc 86 mL/min (>90) Random Glucose 113 mg/dL (70-105) H Whole Blood Ketones Quantitative 0.1 mmol/L (0.0-0.6) Total Calcium 8.6 mg/dL (8.5-10.1) Troponin I High Sensitivity 5 ng/L (4-50) Lipase 35 U/L (16-77) Urine Color LIGHT-YELLOW (YELLOW) Urine Appearance CLEAR (CLEAR) Urine pH 5.5 (5.0-8.0) Urine Specific [place] 1.018 (1.001-1.031) Urine Protein NEGATIVE mg/dL (NEGATIVE) Urine Glucose (UA) NEGATIVE mg/dL (NEGATIVE) Urine Ketones NEGATIVE mg/dL (NEGATIVE) Urine Occult Blood NEGATIVE (NEGATIVE) Urine Nitrate NEGATIVE (NEGATIVE) Urine Bilirubin NEGATIVE mg/dL (NEGATIVE) Urine Urobilinogen 0.2 mg/dL (0.2-1.0) Urine Leukocyte Esterase NEGATIVE [place]/uL R: Unremarkable. GALLBLADDER AND BILE DUCTS: The gallbladder is surgically absent. No biliary ductal dilatation is evident. PANCREAS: Unremarkable. SPLEEN: Unremarkable. ADRENAL GLANDS: Unremarkable. KIDNEYS, URETERS, AND BLADDER: The kidneys appear within normal limits. There is no hydronephrosis or hydroureter. No urinary calculi are seen. The urinary bladder appears unremarkable. STOMACH AND BOWEL: Neurostimulator device in the right lower quadrant abdominal wall with lead tips around the anterior aspect of the distal gastric wall. A moderate amount of fecal content in the colon is concerning for constipation. No evidence of bowel obstruction. No CT findings suggesting enteritis or colitis. APPENDIX: No evidence of acute appendicitis on CT examination. PERITONEUM: No free fluid. No free air. LYMPH NODES: No lymphadenopathy is evident. REPRODUCTIVE: Unremarkable as visualized. VASCULATURE: No evidence of abdominal aortic aneurysm. ABDOMINAL WALL / SOFT TISSUES: Nerve stimulator device in the right gluteal subcutaneous soft tissues. Neurostimulator device in the right lower quadrant abdominal wall with lead tips extending into the left lobe of the liver. BONES: Multilevel mild degenerative changes in the spine. No aggressive appearing osseous lesion. No acute osseous pathology evident. IMPRESSION: No acute intra-abdominal or pelvic abnormality. Neurostimulator device in the right lower quadrant abdominal wall with lead tips around the anterior aspect of the distal gastric wall. Nerve stimulator device in the right gluteal subcutaneous soft tissues. Moderate colonic fecal retention is concerning for constipation. Status post cholecystectomy. On comparison with the prior CT dated 06/15/2024, the left gluteal neurostimulator device is a new finding. The remaining findings are grossly unchanged. /[facility] Reviewed?: Yes EKG: (+) NSR EKG Comment: EKG NORMAL SINUS RHYTHM/HEART RATE 79/AXIS NORMAL/NO ECTOPY ED Course ED Course Orders Procedure Category Date Status Time Ketone Blood LAB 05/27/25 Complete Quantitative 19:03 Cbc With Differential LAB 05/27/25 Complete 19:03 Troponin I High LAB 05/27/25 Complete Sensitivity 19:03 Urinalysis Profile LAB 05/27/25 Complete 19:03 12 Lead Ekg Tracing- EKG 05/27/25 Complete Technical 19:03 0.9%Nacl 1000ml (Ns PHA 05/27/25 Complete 1000ml) 19:30 Morphine 2mg Syg PHA 05/27/25 Complete (Morphine 2mg Syg) 19:30 Ondansetron 4mg Inj PHA 05/27/25 Complete (Zofran 4mg Inj) 19:30 Lipase LAB 05/27/25 Complete 19:03 Basic Metabolic Panel LAB 05/27/25 Complete 19:03 Famotidine 20mg Vial PHA 05/27/25 Complete (Pepcid 20mg Vial) 20:00 Ct Abdomen/Pelvis CT 05/27/25 Resulted W/Contrast 20:31 Iohexol (Omnipaque) PHA 05/27/25 Complete 20:40 Morphine 2mg Syg PHA 05/27/25 Complete (Morphine 2mg Syg) 21:30 Lactulose 20 Gm/30 Ml PHA 05/27/25 Complete Udcup (Constulose 22:30 Morphine 2mg Syg PHA 05/27/25 In Process (Morphine 2mg Syg) 23:00 Current Medications Medications (Trade) Dose Ordered Sig/[place] Route PRN Reason Start Time Stop Time Status Last Admin Dose Admin Famotidine (Pepcid 20mg Vial) 20 mg ONCE ONCE IV 05/27/25 20:00 05/27/25 20:02 DC 05/27/25 20:06 Iohexol (Omnipaque) 75 ml STK-MED ONCE IV 05/27/25 20:40 05/27/25 20:41 DC Lactulose (Constulose 20gm/ 30ml Udcup) 20 gm ONCE ONCE PO 05/27/25 22:30 05/27/25 22:31 DC 05/27/25 22:30 Morphine Sulfate (morPHINE 2MG SYG) 2 mg ONCE ONCE IVP 05/27/25 19:30 05/27/25 19:31 DC 05/27/25 19:16 Morphine Sulfate (morPHINE 2MG SYG) 2 mg ONCE ONCE IVP 05/27/25 21:30 05/27/25 21:31 DC 05/27/25 21:21 Morphine Sulfate (morPHINE 2MG SYG) 2 mg ONCE ONCE IVP 05/27/25 23:00 05/27/25 23:01 Ondansetron HCl (zoFRAN 4MG INJ) 4 mg ONCE ONCE IVP 05/27/25 19:30 05/27/25 19:31 DC 05/27/25 19:16 Sodium Chloride 1,000 ml @ 0 mls/hr ONCE ONCE IV 05/27/25 19:30 05/27/25 19:31 DC 05/27/25 19:16 Vital Signs Date Time Temp Pulse Resp B/P (MAP) Pulse Ox O2 Delivery O2 Flow Rate FiO2 05/27/25 22:32 98.4 71 18 104/63 100 Room Air* 0 05/27/25 18:59 98.4 97 18 130/70 100 Room Air* 0 05/27/25 18:55 98.4 97 18 130/70 100 Room Air 0 2230 PATIENT IS HAVING CONTINUED PAIN TO HER ABDOMEN IN HIS REQUIRED MORPHINE MULTIPLE TIMES AND SHE SAID THIS ONLY LAST FOR A LITTLE WHILE. THERE WAS NO VOMITING AT THIS TIME. PATIENT STATES SHE DOES NOT FEEL SAFE GOING HOME. I ADVISED HER THAT THERE WAS CRITERIA FOR INTRACTABLE ABDOMINAL PAIN ONLY HER AND HER SON 2300/SPOKE WITH [facility] HOSPITALIST AND REVIEWED LABS EKG CT AND SHE AGREED TO ADMIT PATIENT FOR INTRACTABLE PAIN. HEART Score Response (Comments) Value History: Low suspicion (0) 0 Age: 45-65yrs (+1) 1 Risk Factors: 3+ risk factors (+2) 2 Initial Troponin: Normal limit (0) 0 Total 3 Medical Decision Making MDM MDM: DIFFERENTIAL DIAGNOSIS: ACS/AMI/DKA/ELECTROLYTE IMBALANCE/DEHYDRATION/UNCONTROLLED DIABETES/APPENDICITIS/DIVER TICULITIS/HERNIA/UROLITHIASIS RATIONALE: TESTS CONSIDERED AND ORDERED SECONDARY TO SHARED DECISION MAKING INCLUDE: RADIOLOGY/LABS/RADIOLOGY PREVIOUS OUTSIDE RECORDS REVIEWED: OLD ER VISITS. RISK OF COMPLICATION AND/OR MORBIDITY OR MORTALITY OF PATIENT MANAGEMENT: NONE MEDICATIONS-PER MEDICATION RECONCILIATION NEED FOR HOSPITALIZATION: PATIENT DOES NOT MEET CRITERIA FOR HOSPITALIZATION. PATIENT WILL BE ADMITTED FOR INTRACTABLE ABDOMINAL PAIN NAUSEA. NEED FOR EMERGENCY MAJOR/MINOR SURGERY: NO THERE ARE NO SOCIAL CONCERNS WITH THIS PATIENT. PRESCRIPTION DRUG MANAGEMENT PRESCRIPTIONS WILL INCLUDE SYMPTOMATIC CARE PATIENT'S PRIOR EXTERNAL MEDICAL RECORDS FROM OTHER ER VISITS WERE REVIEWED BY ME INDICATED. PRIOR TESTING AND RESULTS FROM PREVIOUS VISITS WERE REVIEWED. PRIOR TESTS WERE TAKEN INTO ACCOUNT WITH MEDICAL DECISION MAKING AND RESOURCE UTILIZATION, INDEPENDENT HISTORIAN/HISTORIANS WERE USED TO OBTAIN COMPLETE MEDICAL HISTORY. I INDEPENDENTLY INTERPRETED THE TEST THAT WERE PERFORMED, RESULTS WERE REVIEWED BY ME AND CONSIDERED FINDINGS ON RADIOLOGY IF ORDERED. MEDICAL MANAGEMENT AND EXAMINATION INTERPRETATION DISCUSSIONS WERE HAD BY ME WITH OTHER QUALIFIED HEALTHCARE PROFESSIONALS INDICATED FOR THE PATIENT'S CARE. DX & DISP Disposition: Inpatient Decision to Admit Time: 22:59 Departure Impression: Primary Impression: Acute constipation Additional Impressions: Stage 2 chronic kidney disease, Diabetes mellitus with hyperglycemia, Anemia of chronic renal failure, stage 2 (mild), Intractable abdominal pain, Gastroparesis Condition: Stable Scripts Lactulose (Lactulose) 10 Gram/15 Ml Solution 30 ML PO BID for constipation, #500 ML 0 Refills Prov: KENTRELL LE [employer]CR[employer] RACER 05/27/25 Referrals: IVELISSE EDWARD MD (PCP) Time of Disposition: 22:28 I have reviewed the case, and I agree with, Diagnosis and Plan KENTRELL LE NP May 27, 2025 19:06
--- NOTE | 2025-05-27 19:10 | EKG ---
[facility] Test Date: 2025-05-27 Test Time: 19:06:02 Pat Name: SHEN LAZO Department: ED Room: 311 Gender: F Baker: [id number] : [id number] Requested By: KENTRELL LE Order Number: [id number] Reading MD: Yenny Wang Measurements Intervals [place] Rate: 79 P: 44 NC: 163 QRS: 0 QRSD: 95 T: 12 QT: 417 QTc: 478 Interpretive Statements Sinus rhythm Compared to ECG 06/15/2024 16:29:10 No significant changes Electronically Signed On 05-28-2025 15:07:36 CDT by Yneny Wang Please click the below link to view image of tracing.
[2025-05-27] MEDS: 0.9%NACL 1000ML 1,000 ML IV ONE (19:16)
[2025-05-27 19:39] LABS: IMMATURE GRANULOCYTE ABSOLUTE 0.02 K/uL (0-1); NUCLEATED RED BLOOD CELLS 0.0 % (0.0-0.19); PLATELET COUNT (AUTO) 291 K/uL (130-400); RED BLOOD CELL COUNT(AUTO) 3.82 MIL/uL (4.00-5.50); RED CELL DISTRIBUTION WIDTH 13.4 % (11.0-15.5); WHITE BLOOD COUNT (AUTO) 6.6 K/uL (4.8-10.8)
[2025-05-27 19:56] LABS: CREATININE 0.8 mg/dL (0.5-1.0); GLOMERULAR FILTR. RATE CALC 86.0 mL/min (>90); GLUCOSE,RANDOM 113.0 mg/dL (70-105); SODIUM SERUM 136.0 mmol/L (136-145); UREA NITROGEN, BLOOD 14.0 mg/dL (7-18)
[2025-05-27] MEDS: FAMOTIDINE 20MG VIAL IV ONE (20:06)
[2025-05-27 20:26] LABS: APPEARANCE,URINE CLEAR (CLEAR); GLUCOSE, URINE (UA) NEGATIVE (NEGATIVE); LEUKOCYTE ESTERASE ,URINE NEGATIVE Leu/uL (NEGATIVE); NITRATE,URINE NEGATIVE (NEGATIVE); OCCULT BLOOD,URINE NEGATIVE (NEGATIVE)
[2025-05-27 20:28] LABS: ADD UA MICROSCOPIC NO
[2025-05-27] MEDS ORDERED: IOHEXOL-350 75 ML VIAL IV ONE (20:40)
--- NOTE | 2025-05-27 22:16 | HMCIMG ---
EXAMINATION: CT Abdomen and Pelvis with IV contrast. CLINICAL HISTORY: Patient presents with epigastric and left upper quadrant pain associated with nausea and vomiting. COMPARISON: None provided. TECHNIQUE: Axial computed tomography images of the abdomen and pelvis with intravenous contrast. FINDINGS: LUNG BASES: The lung bases appear clear. No pleural effusions are seen. LIVER: Unremarkable. GALLBLADDER AND BILE DUCTS: The gallbladder is surgically absent. No biliary ductal dilatation is evident. PANCREAS: Unremarkable. SPLEEN: Unremarkable. ADRENAL GLANDS: Unremarkable. KIDNEYS, URETERS, AND BLADDER: The kidneys appear within normal limits. There is no hydronephrosis or hydroureter. No urinary calculi are seen. The urinary bladder appears unremarkable. STOMACH AND BOWEL: Neurostimulator device in the right lower quadrant abdominal wall with lead tips around the anterior aspect of the distal gastric wall. A moderate amount of fecal content in the colon is concerning for constipation. No evidence of bowel obstruction. No CT findings suggesting enteritis or colitis. APPENDIX: No evidence of acute appendicitis on CT examination. PERITONEUM: No free fluid. No free air. LYMPH NODES: No lymphadenopathy is evident. REPRODUCTIVE: Unremarkable as visualized. VASCULATURE: No evidence of abdominal aortic aneurysm. ABDOMINAL WALL / SOFT TISSUES: Nerve stimulator device in the right gluteal subcutaneous soft tissues. Neurostimulator device in the right lower quadrant abdominal wall with lead tips extending into the left lobe of the liver. BONES: Multilevel mild degenerative changes in the spine. No aggressive appearing osseous lesion. No acute osseous pathology evident. IMPRESSION: No acute intra-abdominal or pelvic abnormality. Neurostimulator device in the right lower quadrant abdominal wall with lead tips around the anterior aspect of the distal gastric wall. Nerve stimulator device in the right gluteal subcutaneous soft tissues. Moderate colonic fecal retention is concerning for constipation. Status post cholecystectomy. On comparison with the prior CT dated 06/15/2024, the left gluteal neurostimulator device is a new finding. The remaining findings are grossly unchanged. /[place]
[2025-05-27] MEDS: LACTULOSE 20 GM/30 ML UDCUP PO ONE (22:30)
[2025-05-27] MEDS ORDERED: LACT-441 PO (22:30)
--- NOTE | 2025-05-27 23:03 | HP ---
[facility] HISTORY AND PHYSICAL Date of Service: May 27, 2025 Time of Service: 23:03 Supervising/attending physician: Dr. Lazara Wasserman and Dr. Uri Woodson HISTORY OF PRESENT ILLNESS: Ms. Talavera is a 59 year old female with history of CVA, diabetes-type II, high cholesterol, hypothyroid and hypertension who [place] [facility] [place] and [place]. The patient reported that she felt very thirsty since yesterday. She reported epigastric pain and left upper quadrant pain. The patient denied any chest pain, back pain, and or SOB. She stated her blood sugars has been very high and today it was greater than 390. She has not seen h er primary care doctor. She is complaint with her medication. V/S: HR 97 bpm, RR 18 bpm, BP 130/70, 100% RA,98.4 F. Lab: Chemistry: Random Glucose 113, RBC 3.82, Hgb 11.8, Hct 34.8, UA: negative. Serology: Negative COVID, Flu, strep swabs. Toxicology: UDS: + Opiates. Abdomen/Pelvis CT: No acute intra-abdominal or pelvic abnormality. In ER the patient received morphine2 mg x 3 doses, NS1 L bolus, Zofran 4 mg, Pepcid 20 mg, and lactulose 20 g. ED provider request the patient be admitted to the hospital under observation for pain management with a diagnosis of acute constipation, stage 2 chronic kidney disease, DM with hyperglycemia, anemia of chronic renal failure stage 2, intractable abdominal pain, gastroparesis. I assessed the patient at bedside in room number ED 10. No family member at bedside. The patient's breathing was even, unlabored, appeared comfortable, and in no distress. The patient reported that she takes tramadol as needed for breakthrough pain. She states that she took tramadol with no relief which prompted to the ED visit. The patient reports that Dr. Omalley did her abdominal surgery. She reports that her GI doctor is Dr. Chata Vega. I informed her of labs, diagnostics, and plan of care. She verbalized understanding and is in agreement with the plan. Plan and assessment are listed below. REVIEW OF SYSTEMS 12-point ROS reviewed with the patient. All pertinent positives mentioned above. Otherwise negative, noncontributory, non-pertinent. PAST MEDICAL HISTORY: As mentioned above PAST SURGICAL HISTORY: Bariatric Surgery, PAST SOCIAL HISTORY: Denied alcohol, tobacco, illicit drug use FAMILY HISTORY: Noncontributory Coded Allergies: clarithromycin (Verified Allergy, Unknown, 05/02/22) metoclopramide (Unverified Allergy, Unknown, 05/02/22) PHYSICAL EXAM GENERAL APPEARANCE: The patient is awake, alert, and oriented, in no acute cardiopulmonary distress. NEUROLOGICAL: Cranial nerves II-XII grossly intact. Motor is 5/5 in bilateral upper and lower extremities proximal to distal. No sensory deficits. HEENT: Face is symmetric. Pupils are equal and reactive. Extraocular movements are intact. NECK: Supple. No JVD. No thyromegaly. No submental, submandibular, pre- /postauricular, occipital or supraclavicular lymphadenopathy. CHEST: Normal chest expansion. No Telemetry. LUNGS: Absence of any rales, rhonchi or any wheezing. CARDIOVASCULAR: Regular. S1 and S2 normal. No appreciable rubs, murmurs or gallops. ABDOMEN: Obese. Soft, nontender, and nondistended. There is no rebound, voluntary guarding, or rigidity. : Deferred. No Arreola. EXTREMITIES: Non-edematous and not cyanotic. No clubbing. Good capillary refill. SKIN: No skin breakdown. Vital Sign (Last 24 Hours) 05/27/25 22:32 Temp 98.4 Pulse 71 Resp 18 B/P (MAP) 104/63 Pulse Ox 100 O2 Delivery Room Air* O2 Flow Rate 0 FiO2 21 LABS: Laboratory: Test 05/27/25 20:17 05/27/25 19:30 Range/Units Urine Color LIGHT-YELLOW YELLOW Urine Appearance CLEAR CLEAR Urine pH 5.5 5.0-8.0 Urine Specific [place] 1.018 1.001-1.031 Urine Protein NEGATIVE NEGATIVE mg/dL Urine Glucose (UA) NEGATIVE NEGATIVE mg/dL Urine Ketones NEGATIVE NEGATIVE mg/dL Urine Occult Blood NEGATIVE NEGATIVE Urine Nitrate NEGATIVE NEGATIVE Urine Bilirubin NEGATIVE NEGATIVE mg/dL Urine Urobilinogen 0.2 0.2-1.0 mg/dL Urine Leukocyte Esterase NEGATIVE NEGATIVE Ravinder/uL White Blood Count 6.6 4.8-10.8 K/uL Red Blood Count 3.82 L 4.00-5.50 MIL/uL Hemoglobin 11.8 L 12.0-16.0 g/dL Hematocrit 34.8 L 36-48 % Mean Corpuscular Volume 91.1 79-99 fL Mean Corpuscular Hemoglobin 30.9 27.0-33.0 pg Mean Corpuscular Hemoglobin Concent 33.9 32.0-36.0 g/dL Red Cell Distribution Width 13.4 11.0-15.5 % Platelet Count 291 130-400 K/uL Mean Platelet Volume 10.0 7.5-10.5 fL Immature Granulocyte % (Auto) 0.3 0-1 % Neutrophils (%) (Auto) 61.5 40.0-77.0 % Lymphocytes (%) (Auto) 28.7 21.0-51.0 % Monocytes (%) (Auto) 7.6 3.0-13.0 % Eosinophils (%) (Auto) 0.8 0.0-8.0 % Basophils (%) (Auto) 1.1 0.0-5.0 % Neutrophils # (Auto) 4.0 1.8-7.7 K/uL Lymphocytes # (Auto) 1.9 1.0-4.8 K/uL Monocytes # (Auto) 0.5 0.1-1.0 K/uL Eosinophils # (Auto) 0.05 0.00-0.70 K/uL Basophils # (Auto) 0.07 0.00-0.20 K/uL Absolute Immature Granulocyte (auto 0.02 0-1 K/uL Nucleated Red Blood Cells 0.0 0.0-0.19 % Sodium Level 136 136-145 mmol/L Potassium Level 3.8 3.5-5.1 mmol/L Chloride Level 103 101-111 mmol/L Carbon Dioxide Level 28 21-32 mmol/L Blood Urea Nitrogen 14 7-18 mg/dL Creatinine 0.8 0.5-1.0 mg/dL Glomerular Filtration Rate Calc 86 >90 mL/min Random Glucose 113 H 70-105 mg/dL Whole Blood Ketones Quantitative 0.1 0.0-0.6 mmol/L Total Calcium 8.6 8.5-10.1 mg/dL Troponin I High Sensitivity 5 4-50 ng/L Lipase 35 16-77 U/L DIAGNOSTICS / RADIOLOGY: [ ] ASSESSMENT: Intractable abdominal pain, POA Chronic pain syndrome,, POA, s/p neurostimulator device in the right lower quadrant abdominal wall and no vestibular device in the right gluteal s ubcutaneous soft tissue Acute nausea and vomiting, POA Gastroparesis Chronic kidney disease stage 2 Diabetes mellitus with hyperglycemia Anemia of chronic renal failure Chronic problem list: CVA, diabetes-type II, high cholesterol, hypothyroid and hypertension PLAN: -Admit to medical floor with telemetry monitoring. -PRN medications for: Pain management, fever, hypertension, N/V, constipation. -LR at 100 mL an hour. -Consult GI for recurrent intractable abdominal pain. -Reconciled/ started home medications: Atorvastatin, Plavix, Pepcid, gabapentin, levothyroxine, sucralfate, Azulfidine, topiramate, lactulose, amitriptyline, escitalopram, hydroxychloroquine, Linzess, lisinopril, meclizine, Zofran, promethazine, ropinirole, tramadol, trazodone. -Glucometer checks AC & HS needed with insulin regular sliding scale coverage as needed. -Blood pressure checks every 4 hours and as needed. -Reconcile home medications once available. - Monitor renal and liver function. -Monitor electrolytes and treat accordingly PRN -AM labs. -GI and DVT prophylaxis -Further plan/orders per hospitalization course. ADVANCED CARE PLANNING 1. Which of the following were discussed? Comfort measures only/Hospice Care - no Therapeutic options - Yes Advance Directives - Yes Other discussions - 2. Discussed with who? The patient 3. Voluntary nature of this service was explained to the patient? Yes 4. Amount of time spent - __ Over 35 minutes 5. Reviewed by Physician? (if this service was performed by MELISSA) Yes ATTESTATION BY PHYSICIAN I have seen and examined the patient. I reviewed the documentation, medical decision making, and treatment plan as noted by the mid-level provider above. I agree with the findings and plan of care. MADAY [facility]E [facility] May 27, 2025 23:03
[2025-05-27 23:31] LABS: RAPID GROUP A STREP negative (NEGATIVE)
[2025-05-27 23:32] LABS: AMPHET/METH SCREEN,URINE NEGATIVE (NEGATIVE); BARBITURATE SCREEN, URINE NEGATIVE (NEGATIVE); CANNABINOID SCREEN,URINE NEGATIVE (NEGATIVE); COCAINE SCREEN,URINE NEGATIVE (NEGATIVE)
[2025-05-27 23:36] LABS: SARS-CoV-2, RNA, NAAT NEGATIVE SARS CoV-2 (NEGATIVE)
[2025-05-27 23:41] LABS: INFLUENZA TYPE A Negative For Type A (NEGATIVE); INFLUENZA TYPE B Negative For Type B (NEGATIVE)
[2025-05-28] VITALS (7 sets, daily range): BP systolic 97–139; BP diastolic 45–78; PULSE 64–80; RESP 16–20; TEMP 97.9–98.4; O2SAT 96–100
[2025-05-28] MEDS ORDERED: LEVO200T10 PO (00:44)
[2025-05-28] MEDS ORDERED: SUCR1TAB2 PO (00:44)
[2025-05-28] MEDS ORDERED: INSU100V SQ (00:44)
[2025-05-28] MEDS ORDERED: TOPI-97 PO (00:44)
[2025-05-28] MEDS ORDERED: PANT40TA55 PO (00:44)
[2025-05-28] MEDS ORDERED: GABA-1405 PO (00:44)
[2025-05-28] MEDS ORDERED: CLOP75TA32 PO (00:44)
[2025-05-28] MEDS ORDERED: ATOR40TA71 PO (00:44)
[2025-05-28] MEDS ORDERED: SULF500T3 PO (00:44)
[2025-05-28] MEDS ORDERED: SULF500T PO (00:44)
[2025-05-28] MEDS ORDERED: NALO25TA4 PO (00:44)
[2025-05-28] MEDS: LACTATED RINGERS 1000ML 1,000 ML IV SCH (02:09)
[2025-05-28 06:58] LABS: NUCLEATED RED BLOOD CELLS 0.0 % (0.0-0.19); PLATELET COUNT (AUTO) 239.0 K/uL (130-400); RED BLOOD CELL COUNT(AUTO) 3.51 MIL/uL (4.00-5.50); RED CELL DISTRIBUTION WIDTH 13.3 % (11.0-15.5); WHITE BLOOD COUNT (AUTO) 5.6 K/uL (4.8-10.8)
[2025-05-28 07:20] LABS: ASPARTATE AMINOTRANSFERASE 482.0 U/L (10-37); CREATININE 0.7 mg/dL (0.5-1.0); GLOMERULAR FILTR. RATE CALC 101.0 mL/min (>90); GLUCOSE,RANDOM 97.0 mg/dL (70-105); PHOSPHORUS 3.5 mg/dL (2.5-4.9); SODIUM SERUM 140.0 mmol/L (136-145); TOTAL PROTEIN, SERUM 6.4 g/dL (6.0-8.3); UREA NITROGEN, BLOOD 10.0 mg/dL (7-18)
[2025-05-28] MEDS: GABAPENTIN 300 MG CAPSULE PO SCH (08:30)
[2025-05-28] MEDS: SUCRALFATE 1 GM TABLET PO SCH (08:30)
[2025-05-28] MEDS: FAMOTIDINE 20MG TAB PO SCH (08:30)
[2025-05-28] MEDS: LISINOPRIL 5 MG TABLET PO SCH (08:31)
[2025-05-28] MEDS: ENOXAPARIN SODIUM 40 MG/0.4 ML SYRINGE SQ SCH (08:32)
[2025-05-28] MEDS: LACTULOSE 20 GM/30 ML UDCUP PO SCH (08:32)
[2025-05-28] MEDS: AMITRIPTYLINE HCL 50 MG PO SCH (08:33)
[2025-05-28] MEDS: MAGNESIUM 2GM PREMIX 50ML 50 ML IV SCH (08:38)
[2025-05-28] MEDS ORDERED: PROMETHAZINE HCL 25 MG TABLET PO SCH (09:00)
[2025-05-28] MEDS ORDERED: NON-FORMULARY MEDICATION 1 EACH (Ondansetron HCl 8 MG) PO SCH (09:00)
--- NOTE | 2025-05-28 11:37 | PN ---
[facility] PROGRESS NOTE Date of Service: May 28, 2025 Time of Service: 11:36 SUBJECTIVE: 05/28 patient is seen and examined at bedside, case discussed with the RN, no acute events overnight, the time of my visit comfortably in bed, alert oriented x3, hemodynamically stable, getting supportive care with IV fluids. Results of CT of the abdomen and pelvis no acute findings, discussed with the patient. Patient with a history of cholecystectomy, however mildly elevated liver enzymes, amylase and lipase ordered, ultrasound of the right upper quadrant ordered, GI consultation requested, we will follow input and recommendation. We will follow acute hepatitis panel as well. Patient taking starting at home, we will hold, continue to monitor liver enzymes in a.m.. REVIEW OF SYSTEMS 12-point ROS reviewed with the patient. All pertinent positives mentioned above. Otherwise negative, noncontributory, non-pertinent. PHYSICAL EXAM GENERAL APPEARANCE: The patient is awake, alert, and oriented, in no acute cardiopulmonary distress. NEUROLOGICAL: Cranial nerves II-XII grossly intact. Motor is 5/5 in bilateral upper and lower extremities proximal to distal. No sensory deficits. HEENT: Face is symmetric. Pupils are equal and reactive. Extraocular movements are intact. NECK: Supple. No JVD. No thyromegaly. No submental, submandibular, pre- /postauricular, occipital or supraclavicular lymphadenopathy. CHEST: Normal chest expansion. No Telemetry. LUNGS: Absence of any rales, rhonchi or any wheezing. CARDIOVASCULAR: Regular. S1 and S2 normal. No appreciable rubs, murmurs or gallops. ABDOMEN: Obese. Soft, nontender, and nondistended. There is no rebound, voluntary guarding, or rigidity. : Deferred. No Arreola. EXTREMITIES: Non-edematous and not cyanotic. No clubbing. Good capillary refill. SKIN: No skin breakdown. Vital Signs (last 8hr) Date Time Temp Pulse Resp B/P (MAP) Pulse Ox O2 Delivery O2 Flow Rate FiO2 05/28/25 08:00 96 Room Air* 0 21 05/28/25 08:00 98.2 80 16 139/78 96 Room Air LABS: Laboratory: Test 05/28/25 11:21 05/28/25 06:35 05/27/25 23:12 05/27/25 20:17 Range/Units Whole Blood Glucose 114 H 70-110 MG/DL White Blood Count 5.6 4.8-10.8 K/uL Red Blood Count 3.51 L 4.00-5.50 MIL/uL Hemoglobin 10.8 L 12.0-16.0 g/dL Hematocrit 31.6 L 36-48 % Mean Corpuscular Volume 90.0 79-99 fL Mean Corpuscular Hemoglobin 30.8 27.0-33.0 pg Mean Corpuscular Hemoglobin Concent 34.2 32.0-36.0 g/dL Red Cell Distribution Width 13.3 11.0-15.5 % Platelet Count 239 130-400 K/uL Mean Platelet Volume 10.0 7.5-10.5 fL Nucleated Red Blood Cells 0.0 0.0-0.19 % Sodium Level 140 136-145 mmol/L Potassium Level 3.5 3.5-5.1 mmol/L Chloride Level 105 101-111 mmol/L Carbon Dioxide Level 27 21-32 mmol/L Blood Urea Nitrogen 10 7-18 mg/dL Creatinine 0.7 0.5-1.0 mg/dL Glomerular Filtration Rate Calc 101 >90 mL/min Random Glucose 97 70-105 mg/dL Hemoglobin A1c 7.1 H 4.0-6.0 % Estimated Average Glucose (eAG) 157 H 70-126 mg/dL Total Calcium 8.4 L 8.5-10.1 mg/dL Phosphorus Level 3.5 2.5-4.9 mg/dL Magnesium Level 1.70 L 1.80-2.40 mg/dL Total Bilirubin 0.9 0.2-1.0 mg/dL Aspartate Amino Transf (AST/SGOT) 482 H 10-37 U/L Alanine Aminotransferase (ALT/SGPT) 379 H 12-78 U/L Alkaline Phosphatase 244 H 50-136 U/L Total Protein 6.4 6.0-8.3 g/dL Albumin 2.8 L 3.5-5.0 g/dL Amylase Level 69 25-115 U/L Lipase 130 H 16-77 U/L Thyroid Stimulating Hormone (TSH) 0.03 #L 0.36-3.74 uIU/mL Influenza Type A Antigen Negative For Type A NEGATIVE Influenza Type B Antigen Negative For Type B NEGATIVE SARS-CoV-2, RNA, NAAT NEGATIVE SARS CoV-2 NEGATIVE Group A Streptococcus Rapid negative NEGATIVE Urine Color LIGHT-YELLOW YELLOW Urine Appearance CLEAR CLEAR Urine pH 5.5 5.0-8.0 Urine Specific [place] 1.018 1.001-1.031 Urine Protein NEGATIVE NEGATIVE mg/dL Urine Glucose (UA) NEGATIVE NEGATIVE mg/dL Urine Ketones NEGATIVE NEGATIVE mg/dL Urine Occult Blood NEGATIVE NEGATIVE Urine Nitrate NEGATIVE NEGATIVE Urine Bilirubin NEGATIVE NEGATIVE mg/dL Urine Urobilinogen 0.2 0.2-1.0 mg/dL Urine Leukocyte Esterase NEGATIVE NEGATIVE Ravinder/uL Urine Opiates Screen POSITIVE H NEGATIVE Urine Barbiturates Screen NEGATIVE NEGATIVE Urine Phencyclidine Screen NEGATIVE NEGATIVE Urine Amphetamines Screen NEGATIVE NEGATIVE Urine Benzodiazepines Screen NEGATIVE NEGATIVE Urine Cocaine Screen NEGATIVE NEGATIVE Urine Marijuana (THC) Screen NEGATIVE NEGATIVE Test 05/27/25 19:30 Range/Units Immature Granulocyte % (Auto) 0.3 0-1 % Neutrophils (%) (Auto) 61.5 40.0-77.0 % Lymphocytes (%) (Auto) 28.7 21.0-51.0 % Monocytes (%) (Auto) 7.6 3.0-13.0 % Eosinophils (%) (Auto) 0.8 0.0-8.0 % Basophils (%) (Auto) 1.1 0.0-5.0 % Neutrophils # (Auto) 4.0 1.8-7.7 K/uL Lymphocytes # (Auto) 1.9 1.0-4.8 K/uL Monocytes # (Auto) 0.5 0.1-1.0 K/uL Eosinophils # (Auto) 0.05 0.00-0.70 K/uL Basophils # (Auto) 0.07 0.00-0.20 K/uL Absolute Immature Granulocyte (auto 0.02 0-1 K/uL Whole Blood Ketones Quantitative 0.1 0.0-0.6 mmol/L Troponin I High Sensitivity 5 4-50 ng/L Current Medications Medications (Trade) Dose Ordered Sig/[place] Route PRN Reason Start Time Stop Time Status Last Admin Dose Admin Acetaminophen (TYLenol 325MG TAB) 650 mg Q6H PRN PO FEVER/MILD PAIN LEVEL 1-3 05/28/25 00:30 06/27/25 00:29 Acetaminophen (TYLenol 650MG SUPPOSITORY) 650 mg Q6H PRN RC FEVER / MILD PAIN 1-3 IF NPO 05/28/25 00:30 06/27/25 00:29 Atorvastatin Calcium (LIPItor 40MG) 40 mg HS PO 05/28/25 21:00 06/27/25 20:59 Clopidogrel Bisulfate (plaVIX 75MG) 75 mg DAILY PO 05/28/25 09:00 06/27/25 08:59 05/28/25 08:31 75 MG Docusate Sodium (COLace 100MG CAP) 100 mg BID PRN PO CONSTIPATION 05/28/25 00:30 06/27/25 00:29 Enoxaparin Sodium (Lovenox) 40 mg DAILY SQ 05/28/25 09:00 06/27/25 08:59 05/28/25 08:32 40 MG Famotidine (Pepcid 20mg Tab) 20 mg BID PO 05/28/25 09:00 06/27/25 08:59 05/28/25 08:30 20 MG Gabapentin (NEURontin 300 MG CAP) 300 mg QID PO 05/28/25 09:00 06/27/25 08:59 05/28/25 08:30 300 MG Home Med (Home Medication) 10 each NOON PO 05/28/25 12:00 06/27/25 11:59 Home Med (Home Medication) 25 each NOON PO 05/28/25 12:00 06/27/25 11:59 Home Med (Home Medication) 50 each BID PO 05/28/25 09:00 06/27/25 08:59 Home Med (Home Medication) 290 each DAILY PO 05/28/25 09:00 06/27/25 08:59 Hydroxychloroquine Sulfate (PLAQuenil 200MG) 200 mg BID PO 05/28/25 09:00 06/11/25 08:59 05/28/25 08:31 200 MG Insulin Human Regular (humuLIN R 100 UNIT/ML 3ML) INSULIN SLIDING SCAL... ACHS SQ 05/28/25 07:30 06/27/25 07:29 Ketorolac Tromethamine (toRADol) 30 mg Q6H PRN IM MODERATE PAIN (4-6) 05/28/25 00:30 06/02/25 00:29 05/28/25 11:10 30 MG Labetalol HCl (TRANdate 20MG SYG) 10 mg Q2H PRN IV SBP GREATER THAN 160 05/28/25 00:30 06/27/25 00:29 Lactated Ringer's 1,000 ml @ 100 mls/hr Q10H IV 05/28/25 00:30 06/27/25 00:29 05/28/25 02:09 100 MLS/HR Lactulose (Constulose 20gm/ 30ml Udcup) 20 gm BID PO 05/28/25 09:00 06/27/25 08:59 05/28/25 08:32 20 GM Levothyroxine Sodium (SYNTHroid 100MCG TAB) 200 mcg SYN PO 05/28/25 06:30 06/27/25 06:29 05/28/25 05:51 200 MCG Lisinopril (Prinivil 5mg) 5 mg DAILY PO 05/28/25 09:00 06/27/25 08:59 05/28/25 08:31 5 MG Magnesium Sulfate 50 ml @ 0 mls/hr PROTOCOL IV 05/28/25 09:00 06/27/25 08:59 05/28/25 08:38 25 MLS/HR Meclizine HCl (ANTIvert 12.5 mg) 12.5 mg TID PRN PO DIZZINESS 05/28/25 04:30 06/27/25 04:29 Miscellaneous Medication (Famotidine ) 40 mg HS PO 05/28/25 21:00 05/28/25 04:34 DC Miscellaneous Medication (Famotidine ) 40 mg HS PO 05/28/25 21:00 05/28/25 04:35 DC Miscellaneous Medication (Ondansetron HCl ) 8 mg TID PO 05/28/25 09:00 05/28/25 04:45 DC Miscellaneous Medication (Sulfasalazine (Azulfidine)) 500 mg NOON PO 05/28/25 12:00 05/28/25 04:36 DC Morphine Sulfate (morPHINE 2MG SYG) 2 mg Q6H PRN IVP SEVERE PAIN (7-10) 05/28/25 00:30 06/04/25 00:29 05/28/25 05:51 2 MG Ondansetron HCl (zoFRAN 4MG INJ) 4 mg Q6H PRN IVP NAUSEA/VOMITING 05/28/25 00:30 06/27/25 00:29 05/28/25 02:16 4 MG Pantoprazole Sodium (PROTonix 40MG TAB) 40 mg BID PO 05/28/25 09:00 05/28/25 04:43 DC Promethazine HCl (Phenergan) 25 mg TID PO 05/28/25 09:00 05/28/25 04:43 DC Ropinirole HCl (REquip) 2 mg HS PO 05/28/25 21:00 06/27/25 20:59 Sucralfate (Carafate) 1 gm QID PO 05/28/25 09:00 06/27/25 08:59 05/28/25 08:30 1 GM Sulfasalazine (AZULfidine 500MG tab DR) 500 mg HS PO 05/28/25 21:00 06/07/25 20:59 Temazepam (restORIL 15 MG CAP) 15 mg HS PRN PO INSOMNIA/SLEEP 05/28/25 00:30 06/27/25 00:29 Topiramate (TopaMAX) 50 mg HS PO 05/28/25 21:00 06/27/25 20:59 Tramadol HCl (UltRAM) 50 mg Q6H PRN PO MODERATE PAIN (4-6) 05/28/25 00:30 05/28/25 07:46 DC 05/28/25 00:55 50 MG Tramadol HCl (UltRAM) 50 mg QID PRN PO PAIN1-5 05/28/25 04:30 05/28/25 04:36 DC Trazodone HCl (DesyREL/OlepTRO) 100 mg HS PO 05/28/25 21:00 06/27/25 20:59 DIAGNOSTICS / RADIOLOGY: [ ] ASSESSMENT: Intractable abdominal pain, POA Chronic pain syndrome,, POA, s/p neurostimulator device in the right lower quadrant abdominal wall and no vestibular device in the right gluteal subcutaneous soft tissue Acute nausea and vomiting, POA Gastroparesis Chronic kidney disease stage 2 Diabetes mellitus with hyperglycemia Anemia of chronic renal failure Chronic problem list: CVA, diabetes-type II, high cholesterol, hypothyroid and hypertension PLAN: NEURO: Minimize central acting medications as possible. Fall Precautions. Well lighted room through the day and minimize interruptions through the night to prevent acute delirium. PULMONARY: Supplemental 02 as needed BiPAP as necessary, for respiratory distress Titrate Fio2 to keep Spo2 > or = 90% DuoNebs and CPT as needed IS hourly while awake for pulmonary hygiene prn Out of bed to chair as tolerated Maintain aspiration precautions at all times CARDIOVASCULAR: Follow hemodynamics. Vital signs per facility protocol GI & NUTRITION: Continue nutritional support Aspirations precautions Prokinetic agents and laxatives as needed KIDNEYS & ELECTROLYTES: Strict monitoring of intake and output Daily weights Avoid nephrotoxic agents Monitor electrolytes and replace as needed Goal urine output of 30mL/hr or 0.5mL/kg/hr Medications to be dosed according to renal function. Avoid contrast if possible ENDOCRINE: Maintain blood glucose between 100-180 at all times. Insulin sliding scale for blood glucose management Hypoglycemia and hyperglycemia protocol in place INFECTIOUS DISEASE: Trend temperature, WBC and procalcitonin level Follow cultures, deescalate antibiotics as soon as possible. Panculture if new onset fever HEMATOLOGY & COAGULATION: Monitor H&H. Keep Hgb > 7 Transfuse 1 unit of PRBC for Hgb < 7 Transfuse 1 pack of platelets of platelets < 20, 000 Watch for any signs and symptoms of bleeding SKIN: Pressure ulcer prevention per facility protocol Specialty mattress as needed ORTHO/REHAB Continue PT/OT PRN: MEDICATIONS Tylenol 650 mg po every 4 hrs for fever zofran 4 mg IV every 6 hrs for n/v Hydralazine 5 mg IV every 4 hrs systolic pressure > 160 bowel regiment: lactulose 20 gm PO BID PRN constipation Supportive measures: Continue GI and DVT prophylaxis Disposition: Pending improvement in clinical condition All questions answered time spent: > 35 min ADY NOBLE MD May 28, 2025 11:37
[2025-05-28] MEDS ORDERED: SULFASALAZINE 500 MG PO SCH (12:00)
[2025-05-28] MEDS: Escitalopram Oxalate 10 MG PO SCH (12:00)
--- NOTE | 2025-05-28 15:13 | NUR ---
Attempted to bring pt down for mrcp. pt has gastric pacemaker of unknown make and model. pt also has bladder stim without the controls the exam can not be safely performed at this time.
[2025-05-28] MEDS ORDERED: NON-FORMULARY MEDICATION 1 EACH (Famotidine 40 MG) PO SCH ×2 (21:00)
[2025-05-28] MEDS: sulfaSALAzine 500MG tab DR 500 MG/TAB TABLET.DR PO SCH (21:42)
[2025-05-29] VITALS (7 sets, daily range): BP systolic 108–129; BP diastolic 60–70; PULSE 62–71; RESP 16–18; TEMP 97.7–98.3; O2SAT 95–99
[2025-05-29 05:32] LABS: NUCLEATED RED BLOOD CELLS 0.0 % (0.0-0.19); PLATELET COUNT (AUTO) 234.0 K/uL (130-400); RED BLOOD CELL COUNT(AUTO) 3.49 MIL/uL (4.00-5.50); RED CELL DISTRIBUTION WIDTH 13.4 % (11.0-15.5); WHITE BLOOD COUNT (AUTO) 4.4 K/uL (4.8-10.8)
[2025-05-29 05:39] LABS: ASPARTATE AMINOTRANSFERASE 121.0 U/L (10-37); CREATININE 0.7 mg/dL (0.5-1.0); GLOMERULAR FILTR. RATE CALC 101.0 mL/min (>90); GLUCOSE,RANDOM 123.0 mg/dL (70-105); PHOSPHORUS 3.4 mg/dL (2.5-4.9); SODIUM SERUM 142.0 mmol/L (136-145); TOTAL PROTEIN, SERUM 6.2 g/dL (6.0-8.3); UREA NITROGEN, BLOOD 8.0 mg/dL (7-18)
--- NOTE | 2025-05-29 09:00 | HMCIMG ---
EXAMINATION: ULTRASOUND OF THE ABDOMEN (LIMITED) WITH COLOR DOPPLER. CLINICAL HISTORY: Transaminitis. COMPARISON: CT abdomen and pelvis with contrast dated 05/27/2025. TECHNIQUE: Real-time grayscale ultrasound images of the abdomen. In addition, color Doppler is medically necessary to perform in order to evaluate vascularity and blood flow. FINDINGS: Liver: Bulky in caliber, the right hepatic lobe measures 16.4 cm in the craniocaudal dimension. There is increased echogenicity of the hepatic parenchyma. There is no focal hepatic abnormality or intrahepatic biliary ductal dilatation. There is normal spectral Doppler of the main portal vein (PSV is 23 cm/s). The left lobe is obscured by overlying bowel gas. Gallbladder: Post cholecystectomy status. Common bile duct is normal in caliber, measuring 0.6 cm. Pancreas: Obscured by overlying bowel gas. The lower pole of the right kidney is not well visualized. Limited study due to bowel gas. IMPRESSION: Hepatomegaly with hepatic steatosis. Post cholecystectomy status. No significant interval changes. /Jackie
[2025-05-29] MEDS ORDERED: PoTASSium chl 10% ELIXIR 20MEQ 20 MEQ/15 ML UDCUP PO PRN (10:30)
[2025-05-29] MEDS: PoTASSium chloRIDE 20MEQ ER 20 MEQ ERTAB PO PRN (10:41)
--- NOTE | 2025-05-29 10:56 | PN ---
[facility] PROGRESS NOTE Date of Service: May 29, 2025 Time of Service: 10:54 SUBJECTIVE: 05/28 patient is seen and examined at bedside, case discussed with the RN, no acute events overnight, the time of my visit comfortably in bed, alert oriented x3, hemodynamically stable, getting supportive care with IV fluids. Results of CT of the abdomen and pelvis no acute findings, discussed with the patient. Patient with a history of cholecystectomy, however mildly elevated liver enzymes, amylase and lipase ordered, ultrasound of the right upper quadrant ordered, GI consultation requested, we will follow input and recommendation. We will follow acute hepatitis panel as well. Patient taking starting at home, we will hold, continue to monitor liver enzymes in a.m.. 05/29 patient is seen and examined at bedside, case discussed with the RN, no acute events overnight, the time of my visit she is comfortably in bed, alert oriented x3, she has been NPO, denies nausea, no vomiting, no abdominal pain, she feels hungry, liver enzymes trending down, ultrasound of the abdomen showing hepatomegaly with a hepatic steatosis, post cholecystectomy status, no significant interval changes. Liver is bulking caliber, the right hepatic lobe measures 16.4 cm in the craniocaudad dimension. There is increased echogenicity of the hepatic parenchyma. No focal hepatic abnormality intrahepatic biliary ductal dilatation. There is normal spectral Doppler of the main portal vein. The left lobe is obscured by overlying bowel gas. We will order CT of the abdomen and pelvis without contrast, continue to follow amylase and lipase level in a.m.. Continue to follow either enzymes in a.m.. Start clear liquid diet, advanced as tolerated. We will continue to hold atorvastatin,Plan of action discussed with the patient, agreed and understood the information provided. REVIEW OF SYSTEMS 12-point ROS reviewed with the patient. All pertinent positives mentioned above. Otherwise negative, noncontributory, non-pertinent. PHYSICAL EXAM GENERAL APPEARANCE: The patient is awake, alert, and oriented, in no acute cardiopulmonary distress. NEUROLOGICAL: Cranial nerves II-XII grossly intact. Motor is 5/5 in bilateral upper and lower extremities proximal to distal. No sensory deficits. HEENT: Face is symmetric. Pupils are equal and reactive. Extraocular movements are intact. NECK: Supple. No JVD. No thyromegaly. No submental, submandibular, pre- /postauricular, occipital or supraclavicular lymphadenopathy. CHEST: Normal chest expansion. No Telemetry. LUNGS: Absence of any rales, rhonchi or any wheezing. CARDIOVASCULAR: Regular. S1 and S2 normal. No appreciable rubs, murmurs or gallops. ABDOMEN: Obese. Soft, nontender, and nondistended. There is no rebound, voluntary guarding, or rigidity. : Deferred. No [place]. EXTREMITIES: Non-edematous and not cyanotic. No clubbing. Good capillary refill. SKIN: No skin breakdown. Vital Signs (last 8hr) Date Time Temp Pulse Resp B/P (MAP) Pulse Ox O2 Delivery O2 Flow Rate FiO2 05/29/25 08:00 98.2 65 17 113/60 99 Room Air 05/29/25 04:00 97.9 69 16 108/70 95 Room Air LABS: Laboratory: Test 05/29/25 05:15 05/29/25 05:09 05/28/25 06:35 05/27/25 23:12 Range/Units Whole Blood Glucose 121 H 70-110 MG/DL White Blood Count 4.4 L 4.8-10.8 K/uL Red Blood Count 3.49 L 4.00-5.50 MIL/uL Hemoglobin 10.7 L 12.0-16.0 g/dL Hematocrit 32.4 L 36-48 % Mean Corpuscular Volume 92.8 79-99 fL Mean Corpuscular Hemoglobin 30.7 27.0-33.0 pg Mean Corpuscular Hemoglobin Concent 33.0 32.0-36.0 g/dL Red Cell Distribution Width 13.4 11.0-15.5 % Platelet Count 234 130-400 K/uL Mean Platelet Volume 10.1 7.5-10.5 fL Nucleated Red Blood Cells 0.0 0.0-0.19 % Sodium Level 142 136-145 mmol/L Potassium Level 3.6 3.5-5.1 mmol/L Chloride Level 106 101-111 mmol/L Carbon Dioxide Level 29 21-32 mmol/L Blood Urea Nitrogen 8 7-18 mg/dL Creatinine 0.7 0.5-1.0 mg/dL Glomerular Filtration Rate Calc 101 >90 mL/min Random Glucose 123 H 70-105 mg/dL Total Calcium 8.4 L 8.5-10.1 mg/dL Phosphorus Level 3.4 2.5-4.9 mg/dL Magnesium Level 1.90 1.80-2.40 mg/dL Total Bilirubin 0.5 # 0.2-1.0 mg/dL Aspartate Amino Transf (AST/SGOT) 121 H 10-37 U/L Alanine Aminotransferase (ALT/SGPT) 251 #H 12-78 U/L Alkaline Phosphatase 240 H 50-136 U/L Total Protein 6.2 6.0-8.3 g/dL Albumin 2.7 L 3.5-5.0 g/dL Hemoglobin A1c 7.1 H 4.0-6.0 % Estimated Average Glucose (eAG) 157 H 70-126 mg/dL Amylase Level 69 25-115 U/L Lipase 130 H 16-77 U/L Thyroid Stimulating Hormone (TSH) 0.03 #L 0.36-3.74 uIU/mL Influenza Type A Antigen Negative For Type A NEGATIVE Influenza Type B Antigen Negative For Type B NEGATIVE SARS-CoV-2, RNA, NAAT NEGATIVE SARS CoV-2 NEGATIVE Group A Streptococcus Rapid negative NEGATIVE Test 05/27/25 20:17 05/27/25 19:30 Range/Units Urine Color LIGHT-YELLOW YELLOW Urine Appearance CLEAR CLEAR Urine pH 5.5 5.0-8.0 Urine Specific [place] 1.018 1.001-1.031 Urine Protein NEGATIVE NEGATIVE mg/dL Urine Glucose (UA) NEGATIVE NEGATIVE mg/dL Urine Ketones NEGATIVE NEGATIVE mg/dL Urine Occult Blood NEGATIVE NEGATIVE Urine Nitrate NEGATIVE NEGATIVE Urine Bilirubin NEGATIVE NEGATIVE mg/dL Urine Urobilinogen 0.2 0.2-1.0 mg/dL Urine Leukocyte Esterase NEGATIVE NEGATIVE Ravinder/uL Urine Opiates Screen POSITIVE H NEGATIVE Urine Barbiturates Screen NEGATIVE NEGATIVE Urine Phencyclidine Screen NEGATIVE NEGATIVE Urine Amphetamines Screen NEGATIVE NEGATIVE Urine Benzodiazepines Screen NEGATIVE NEGATIVE Urine Cocaine Screen NEGATIVE NEGATIVE Urine Marijuana (THC) Screen NEGATIVE NEGATIVE Immature Granulocyte % (Auto) 0.3 0-1 % Neutrophils (%) (Auto) 61.5 40.0-77.0 % Lymphocytes (%) (Auto) 28.7 21.0-51.0 % Monocytes (%) (Auto) 7.6 3.0-13.0 % Eosinophils (%) (Auto) 0.8 0.0-8.0 % Basophils (%) (Auto) 1.1 0.0-5.0 % Neutrophils # (Auto) 4.0 1.8-7.7 K/uL Lymphocytes # (Auto) 1.9 1.0-4.8 K/uL Monocytes # (Auto) 0.5 0.1-1.0 K/uL Eosinophils # (Auto) 0.05 0.00-0.70 K/uL Basophils # (Auto) 0.07 0.00-0.20 K/uL Absolute Immature Granulocyte (auto 0.02 0-1 K/uL Whole Blood Ketones Quantitative 0.1 0.0-0.6 mmol/L Troponin I High Sensitivity 5 4-50 ng/L Current Medications Medications (Trade) Dose Ordered Sig/[place] Route PRN Reason Start Time Stop Time Status Last Admin Dose Admin Acetaminophen (TYLenol 325MG TAB) 650 mg Q6H PRN PO FEVER/MILD PAIN LEVEL 1-3 05/28/25 00:30 06/27/25 00:29 Acetaminophen (TYLenol 650MG SUPPOSITORY) 650 mg Q6H PRN RC FEVER / MILD PAIN 1-3 IF NPO 05/28/25 00:30 06/27/25 00:29 Atorvastatin Calcium (LIPItor 40MG) 40 mg HS PO 05/28/25 21:00 05/28/25 11:36 DC Clopidogrel Bisulfate (plaVIX 75MG) 75 mg DAILY PO 05/28/25 09:00 06/27/25 08:59 05/29/25 08:53 75 MG Docusate Sodium (COLace 100MG CAP) 100 mg BID PRN PO CONSTIPATION 05/28/25 00:30 06/27/25 00:29 Enoxaparin Sodium (Lovenox) 40 mg DAILY SQ 05/28/25 09:00 06/27/25 08:59 05/29/25 08:54 40 MG Famotidine (Pepcid 20mg Tab) 20 mg BID PO 05/28/25 09:00 06/27/25 08:59 05/29/25 08:53 20 MG Gabapentin (NEURontin 300 MG CAP) 300 mg QID PO 05/28/25 09:00 06/27/25 08:59 05/29/25 08:52 300 MG Home Med (Home Medication) 10 each NOON PO 05/28/25 12:00 06/27/25 11:59 Home Med (Home Medication) 25 each NOON PO 05/28/25 12:00 06/27/25 11:59 Home Med (Home Medication) 50 each BID PO 05/28/25 09:00 06/27/25 08:59 Home Med (Home Medication) 290 each DAILY PO 05/28/25 09:00 06/27/25 08:59 Hydroxychloroquine Sulfate (PLAQuenil 200MG) 200 mg BID PO 05/28/25 09:00 06/11/25 08:59 05/29/25 08:52 200 MG Insulin Human Regular (humuLIN R 100 UNIT/ML 3ML) INSULIN SLIDING SCAL... ACHS SQ 05/28/25 07:30 06/27/25 07:29 Ketorolac Tromethamine (toRADol) 30 mg Q6H PRN IM MODERATE PAIN (4-6) 05/28/25 00:30 06/02/25 00:29 05/29/25 09:12 30 MG Labetalol HCl (TRANdate 20MG SYG) 10 mg Q2H PRN IV SBP GREATER THAN 160 05/28/25 00:30 06/27/25 00:29 Lactated Ringer's 1,000 ml @ 100 mls/hr Q10H IV 05/28/25 00:30 06/27/25 00:29 05/29/25 05:51 100 MLS/HR Lactulose (Constulose 20gm/ 30ml Udcup) 20 gm BID PO 05/28/25 09:00 06/27/25 08:59 05/29/25 08:54 20 GM Levothyroxine Sodium (SYNTHroid 100MCG TAB) 200 mcg SYN PO 05/28/25 06:30 06/27/25 06:29 05/29/25 05:52 200 MCG Lisinopril (Prinivil 5mg) 5 mg DAILY PO 05/28/25 09:00 06/27/25 08:59 05/28/25 08:31 5 MG Magnesium Sulfate 50 ml @ 0 mls/hr PROTOCOL IV 05/28/25 09:00 05/29/25 10:12 DC 05/28/25 08:38 25 MLS/HR Magnesium Sulfate 50 ml @ 0 mls/hr PROTOCOL PRN IV hypomagnesemia 05/29/25 10:30 06/28/25 10:29 Meclizine HCl (ANTIvert 12.5 mg) 12.5 mg TID PRN PO DIZZINESS 05/28/25 04:30 06/27/25 04:29 Miscellaneous Medication (Famotidine ) 40 mg HS PO 05/28/25 21:00 05/28/25 04:34 DC Miscellaneous Medication (Famotidine ) 40 mg HS PO 05/28/25 21:00 05/28/25 04:35 DC Miscellaneous Medication (Ondansetron HCl ) 8 mg TID PO 05/28/25 09:00 05/28/25 04:45 DC Miscellaneous Medication (Sulfasalazine (Azulfidine)) 500 mg NOON PO 05/28/25 12:00 05/28/25 04:36 DC Morphine Sulfate (morPHINE 2MG SYG) 2 mg Q6H PRN IVP SEVERE PAIN (7-10) 05/28/25 00:30 06/04/25 00:29 05/29/25 10:54 2 MG Ondansetron HCl (zoFRAN 4MG INJ) 4 mg Q6H PRN IVP NAUSEA/VOMITING 05/28/25 00:30 06/27/25 00:29 05/29/25 10:41 4 MG Pantoprazole Sodium (PROTonix 40MG TAB) 40 mg BID PO 05/28/25 09:00 05/28/25 04:43 DC Potassium Chloride 100 ml @ 100 mls/hr AD PRN IV POTASSIUM PROTOCOL 05/29/25 10:30 06/28/25 10:29 Potassium Chloride (K-Dur/Klor-Con 20meq) 20 meq AD PRN PO POTASSIUM PROTOCOL 05/29/25 10:30 06/28/25 10:29 05/29/25 10:41 20 MEQ Potassium Chloride (KCl 10% Elixir 20meq/15ml) 20 meq AD PRN PO POTASSIUM PROTOCOL 05/29/25 10:30 06/28/25 10:29 Promethazine HCl (Phenergan) 25 mg TID PO 05/28/25 09:00 05/28/25 04:43 DC Ropinirole HCl (REquip) 2 mg HS PO 05/28/25 21:00 06/27/25 20:59 05/28/25 21:44 2 MG Sucralfate (Carafate) 1 gm QID PO 05/28/25 09:00 06/27/25 08:59 05/29/25 08:53 1 GM Sulfasalazine (AZULfidine 500MG tab DR) 500 mg HS PO 05/28/25 21:00 06/07/25 20:59 05/28/25 21:42 500 MG Temazepam (restORIL 15 MG CAP) 15 mg HS PRN PO INSOMNIA/SLEEP 05/28/25 00:30 06/27/25 00:29 Topiramate (TopaMAX) 50 mg HS PO 05/28/25 21:00 06/27/25 20:59 05/28/25 23:16 50 MG Tramadol HCl (UltRAM) 50 mg Q6H PRN PO MODERATE PAIN (4-6) 05/28/25 00:30 05/28/25 07:46 DC 05/28/25 00:55 50 MG Tramadol HCl (UltRAM) 50 mg QID PRN PO PAIN1-5 05/28/25 04:30 05/28/25 04:36 DC Trazodone HCl (DesyREL/OlepTRO) 100 mg HS PO 05/28/25 21:00 06/27/25 20:59 05/28/25 21:44 100 MG DIAGNOSTICS / RADIOLOGY: [ ] ASSESSMENT: Intractable abdominal pain, POA Chronic pain syndrome,, POA, s/p neurostimulator device in the right lower quadrant abdominal wall and no vestibular device in the right gluteal subcutaneous soft tissue Acute nausea and vomiting, POA Gastroparesis Chronic kidney disease stage 2 Diabetes mellitus with hyperglycemia Anemia of chronic renal failure Chronic problem list: CVA, diabetes-type II, high cholesterol, hypothyroid and hypertension PLAN: NEURO: Minimize central acting medications as possible. Fall Precautions. Well lighted room through the day and minimize interruptions through the night to prevent acute delirium. PULMONARY: Supplemental 02 as needed BiPAP as necessary, for respiratory distress Titrate Fio2 to keep Spo2 > or = 90% DuoNebs and CPT as needed IS hourly while awake for pulmonary hygiene prn Out of bed to chair as tolerated Maintain aspiration precautions at all times CARDIOVASCULAR: Follow hemodynamics. Vital signs per facility protocol GI & NUTRITION: Continue nutritional support Aspirations precautions Prokinetic agents and laxatives as needed KIDNEYS & ELECTROLYTES: Strict monitoring of intake and output Daily weights Avoid nephrotoxic agents Monitor electrolytes and replace as needed Goal urine output of 30mL/hr or 0.5mL/kg/hr Medications to be dosed according to renal function. Avoid contrast if possible ENDOCRINE: Maintain blood glucose between 100-180 at all times. Insulin sliding scale for blood glucose management Hypoglycemia and hyperglycemia protocol in place INFECTIOUS DISEASE: Trend temperature, WBC and procalcitonin level Follow cultures, deescalate antibiotics as soon as possible. Panculture if new onset fever HEMATOLOGY & COAGULATION: Monitor H&H. Keep Hgb > 7 Transfuse 1 unit of PRBC for Hgb < 7 Transfuse 1 pack of platelets of platelets < 20, 000 Watch for any signs and symptoms of bleeding SKIN: Pressure ulcer prevention per facility protocol Specialty mattress as needed ORTHO/REHAB Continue PT/OT PRN: MEDICATIONS Tylenol 650 mg po every 4 hrs for fever zofran 4 mg IV every 6 hrs for n/v Hydralazine 5 mg IV every 4 hrs systolic pressure > 160 bowel regiment: lactulose 20 gm PO BID PRN constipation Supportive measures: Continue GI and DVT prophylaxis Disposition: Pending improvement in clinical condition All questions answered time spent: > 35 min ADY NOBLE MD May 29, 2025 10:56
--- NOTE | 2025-05-29 11:06 | NUR ---
DCP:HOME Pt currently lives at home with her son Alfredo Talavera [phone]. pt does use a wheelchair, cane, and walker to ambulate. Pt receives $132 in [employer] benefits. Pt has a provider that goes to her home 29 hrs a week to assist her with all ADLs, home management, and meals. PCP is Dr. Mason Rosas and use [facility] for any RX needs. At [place] pt will want to go home and family can assist with transportation. Addendum: 05/29/25 at 1108 by ESTRELLITA JOHNSON SS Amended: Links added.
[2025-05-29 11:11] LABS: HEPATITIS A IGM ANTIBODY Non-Reactive (Nonreactive); HEPATITIS B CORE IGM ANTIBODY Non-Reactive (Negative)
--- NOTE | 2025-05-29 17:04 | CONS ---
GASTROENTEROLOGY CONSULTATION NOTE Date of Consultation: May 29, 2025 Time of Consultation: 17:03 History of Present Illness: [ 59-year-old female patient who presented to the emergency room with complaints of epigastric pain and left upper quadrant pain with nausea and vomiting. Patient with past medical history of CVA, type 2 diabetes, hypercholesteremia, hypothyroid, and hypertension. Patient also has history for gastroparesis, dyspneic disorder, systemic lupus. Patient had gastric stimulator battery replacement on 07/2023. On admission WBC of 6.6, hemoglobin 11.8, platelets 291. Chemistries significant for glucose of 123, calcium 8.4, total bilirubin 0.5, AST 121, ALT 251, alkaline phosphatase of 240. Urine toxicology positive for opiates. Acute hepatitis panel negative. WBC today of 4.4, hemoglobin 10.7, platelets 234. MCV 92.8. Amylase at 69 and Lipase at 61. We were consulted for recurrent intractable abdominal pain. CT of abdomen and pelvis findings of no acute intra-abdominal or pelvic abnormality, neurostimulator device in the right lower quadrant abdominal wall with lead tips around the anterior aspect of the distal gastric wall. Nerve stimulator device in the right gluteal subcutaneous soft tissues. Moderate colonic fecal retention is concerning for constipation. Status post cholecystectomy. Abdominal ultrasound significant for hepatomegaly with hepatic steatosis, post cholecystectomy status. On exam, patient is in sf in no acute. Patient's respirations are regular and unlabored. BBS clear. Abdomen is soft, tender and distended to epigastric area. Active bs are present. Patient reports she has gastric stimulator for gastroparesis and SNS d/t urin jacquelyn incontinence. She states she has had abdominal pain with n/v for the past 6 days. She reports having to use several enemas with last bm on 05/25/25. Poc and recommendations for EGD given. Patient agreed to proceed with exam. ] Review of Systems: CONSTITUTIONAL: No malaise or change in sensation of wellbeing. ENMT: No rhinorrhea, otorrhea, sinus pain, ear ache. CARDIOVASCULAR: No angina, palpitations, orthopnea or paroxysmal dyspnea. RESPIRATORY: No SOB. GASTROINTESTINAL: No abdominal pain, nausea, vomiting, diarrhea, hematemesis, melena or change in the patient's habitual bowel movements consistency/number. GENITOURINARY: No dysuria, hematuria or change in bladder continence. MUSCULOSKELETAL: No new muscle pain or decrease in muscular strength. No new joint swelling, redness or tenderness. SKIN: No new rash. Past Medical History: CVA, type 2 diabetes, hypercholesteremia, hypothyroid, and hypertension. PAST SURGICAL HISTORY: Bariatric Surgery, PAST SOCIAL HISTORY: Denied alcohol, tobacco, illicit drug us Coded Allergies: clarithromycin (Verified Allergy, Unknown, 05/02/22) metoclopramide (Unverified Allergy, Unknown, 05/02/22) Physical Exam: GEN: Awake, alert, oriented in person, time and place, and in no acute distress. HEENT: No rhinorrhea. Oral pharyngeal mucosa is pink, moist and within normal limits. CHEST: Inspection, and palpation of the chest were unremarkable. Lung auscultation revealed normal breath sounds bilaterally. CARDIAC: Heart sounds are regular. ABD: Soft, distended and tender to upper abdomen. Abdomen soft to lower abdomen. No peritoneal signs on palpation. No organomegaly. Normal bowel sounds. Last bm 05/25/25. EXT: No cyanosis or clubbing. No edema. SKIN: Intact. No rashes. JOINTS: No evidence of synovitis or acute arthritis. NEURO: Alert and oriented to name, place and person. No focal motor deficits. Normal speech. Strength is normal.. Vital Sign (Last 24 Hours) 05/29/25 05/29/25 08:00 12:00 Temp 98.2 Pulse 71 Resp 18 B/P (MAP) 125/67 Pulse Ox 96 O2 Delivery Room Air O2 Flow Rate 0 FiO2 21 Intake & Output (last 24hrs) 05/28/25 05/28/25 05/29/25 15:00 23:00 07:00 Intake Total 50.0 ml 800.0 ml Balance 50.0 ml 800.0 ml Laboratory: [ ] Laboratory: Test 05/29/25 16:12 05/29/25 05:09 05/28/25 12:33 05/28/25 06:35 Range/Units Whole Blood Glucose 169 H 70-110 MG/DL White Blood Count 4.4 L 4.8-10.8 K/uL Red Blood Count 3.49 L 4.00-5.50 MIL/uL Hemoglobin 10.7 L 12.0-16.0 g/dL Hematocrit 32.4 L 36-48 % Mean Corpuscular Volume 92.8 79-99 fL Mean Corpuscular Hemoglobin 30.7 27.0-33.0 pg Mean Corpuscular Hemoglobin Concent 33.0 32.0-36.0 g/dL Red Cell Distribution Width 13.4 11.0-15.5 % Platelet Count 234 130-400 K/uL Mean Platelet Volume 10.1 7.5-10.5 fL Nucleated Red Blood Cells 0.0 0.0-0.19 % Sodium Level 142 136-145 mmol/L Potassium Level 3.6 3.5-5.1 mmol/L Chloride Level 106 101-111 mmol/L Carbon Dioxide Level 29 21-32 mmol/L Blood Urea Nitrogen 8 7-18 mg/dL Creatinine 0.7 0.5-1.0 mg/dL Glomerular Filtration Rate Calc 101 >90 mL/min Random Glucose 123 H 70-105 mg/dL Total Calcium 8.4 L 8.5-10.1 mg/dL Phosphorus Level 3.4 2.5-4.9 mg/dL Magnesium Level 1.90 1.80-2.40 mg/dL Total Bilirubin 0.5 # 0.2-1.0 mg/dL Aspartate Amino Transf (AST/SGOT) 121 H 10-37 U/L Alanine Aminotransferase (ALT/SGPT) 251 #H 12-78 U/L Alkaline Phosphatase 240 H 50-136 U/L Total Protein 6.2 6.0-8.3 g/dL Albumin 2.7 L 3.5-5.0 g/dL Lipase 61 16-77 U/L Hepatitis A IgM Antibody Non-Reactive Nonreactive Hepatitis B Surface Antigen. Non-Reactive Nonreactive Hepatitis B Core IgM Antibody Non-Reactive Negative Hepatitis C Antibody Non-Reactive Nonreactive Hemoglobin A1c 7.1 H 4.0-6.0 % Estimated Average Glucose (eAG) 157 H 70-126 mg/dL Amylase Level 69 25-115 U/L Thyroid Stimulating Hormone (TSH) 0.03 #L 0.36-3.74 uIU/mL Test 05/27/25 23:12 05/27/25 20:17 05/27/25 19:30 Range/Units Influenza Type A Antigen Negative For Type A NEGATIVE Influenza Type B Antigen Negative For Type B NEGATIVE SARS-CoV-2, RNA, NAAT NEGATIVE SARS CoV-2 NEGATIVE Group A Streptococcus Rapid negative NEGATIVE Urine Color LIGHT-YELLOW YELLOW Urine Appearance CLEAR CLEAR Urine pH 5.5 5.0-8.0 Urine Specific [place] 1.018 1.001-1.031 Urine Protein NEGATIVE NEGATIVE mg/dL Urine Glucose (UA) NEGATIVE NEGATIVE mg/dL Urine Ketones NEGATIVE NEGATIVE mg/dL Urine Occult Blood NEGATIVE NEGATIVE Urine Nitrate NEGATIVE NEGATIVE Urine Bilirubin NEGATIVE NEGATIVE mg/dL Urine Urobilinogen 0.2 0.2-1.0 mg/dL Urine Leukocyte Esterase NEGATIVE NEGATIVE Ravinder/uL Urine Opiates Screen POSITIVE H NEGATIVE Urine Barbiturates Screen NEGATIVE NEGATIVE Urine Phencyclidine Screen NEGATIVE NEGATIVE Urine Amphetamines Screen NEGATIVE NEGATIVE Urine Benzodiazepines Screen NEGATIVE NEGATIVE Urine Cocaine Screen NEGATIVE NEGATIVE Urine Marijuana (THC) Screen NEGATIVE NEGATIVE Immature Granulocyte % (Auto) 0.3 0-1 % Neutrophils (%) (Auto) 61.5 40.0-77.0 % Lymphocytes (%) (Auto) 28.7 21.0-51.0 % Monocytes (%) (Auto) 7.6 3.0-13.0 % Eosinophils (%) (Auto) 0.8 0.0-8.0 % Basophils (%) (Auto) 1.1 0.0-5.0 % Neutrophils # (Auto) 4.0 1.8-7.7 K/uL Lymphocytes # (Auto) 1.9 1.0-4.8 K/uL Monocytes # (Auto) 0.5 0.1-1.0 K/uL Eosinophils # (Auto) 0.05 0.00-0.70 K/uL Basophils # (Auto) 0.07 0.00-0.20 K/uL Absolute Immature Granulocyte (auto 0.02 0-1 K/uL Whole Blood Ketones Quantitative 0.1 0.0-0.6 mmol/L Troponin I High Sensitivity 5 4-50 ng/L Current Medications Medications (Trade) Dose Ordered Sig/Stanton Route PRN Reason Start Time Stop Time Status Last Admin Dose Admin Acetaminophen (TYLenol 325MG TAB) 650 mg Q6H PRN PO FEVER/MILD PAIN LEVEL 1-3 05/28/25 00:30 06/27/25 00:29 Acetaminophen (TYLenol 650MG SUPPOSITORY) 650 mg Q6H PRN RC FEVER / MILD PAIN 1-3 IF NPO 05/28/25 00:30 06/27/25 00:29 Atorvastatin Calcium (LIPItor 40MG) 40 mg HS PO 05/28/25 21:00 05/28/25 11:36 DC Clopidogrel Bisulfate (plaVIX 75MG) 75 mg DAILY PO 05/28/25 09:00 06/27/25 08:59 05/29/25 08:53 75 MG Docusate Sodium (COLace 100MG CAP) 100 mg BID PRN PO CONSTIPATION 05/28/25 00:30 06/27/25 00:29 Enoxaparin Sodium (Lovenox) 40 mg DAILY SQ 05/28/25 09:00 06/27/25 08:59 05/29/25 08:54 40 MG Famotidine (Pepcid 20mg Tab) 20 mg BID PO 05/28/25 09:00 06/27/25 08:59 05/29/25 08:53 20 MG Gabapentin (NEURontin 300 MG CAP) 300 mg QID PO 05/28/25 09:00 06/27/25 08:59 05/29/25 17:00 300 MG Home Med (Home Medication) 10 each NOON PO 05/28/25 12:00 06/27/25 11:59 Home Med (Home Medication) 25 each NOON PO 05/28/25 12:00 06/27/25 11:59 Home Med (Home Medication) 50 each BID PO 05/28/25 09:00 06/27/25 08:59 Home Med (Home Medication) 290 each DAILY PO 05/28/25 09:00 06/27/25 08:59 Hydroxychloroquine Sulfate (PLAQuenil 200MG) 200 mg BID PO 05/28/25 09:00 06/11/25 08:59 05/29/25 08:52 200 MG Insulin Human Regular (humuLIN R 100 UNIT/ML 3ML) INSULIN SLIDING SCAL... ACHS SQ 05/28/25 07:30 06/27/25 07:29 Ketorolac Tromethamine (toRADol) 15 mg Q6H PRN IV MODERATE PAIN (4-6) 05/29/25 14:30 06/03/25 14:29 Ketorolac Tromethamine (toRADol) 30 mg Q6H PRN IM MODERATE PAIN (4-6) 05/28/25 00:30 05/29/25 14:18 DC 05/29/25 09:12 30 MG Labetalol HCl (TRANdate 20MG SYG) 10 mg Q2H PRN IV SBP GREATER THAN 160 05/28/25 00:30 06/27/25 00:29 Lactated Ringer's 1,000 ml @ 100 mls/hr Q10H IV 05/28/25 00:30 06/27/25 00:29 05/29/25 15:56 100 MLS/HR Lactulose (Constulose 20gm/ 30ml Udcup) 20 gm BID PO 05/28/25 09:00 06/27/25 08:59 05/29/25 08:54 20 GM Levothyroxine Sodium (SYNTHroid 100MCG TAB) 200 mcg SYN PO 05/28/25 06:30 06/27/25 06:29 05/29/25 05:52 200 MCG Lisinopril (Prinivil 5mg) 5 mg DAILY PO 05/28/25 09:00 06/27/25 08:59 05/28/25 08:31 5 MG Magnesium Sulfate 50 ml @ 0 mls/hr PROTOCOL IV 05/28/25 09:00 05/29/25 10:12 DC 05/28/25 08:38 25 MLS/HR Magnesium Sulfate 50 ml @ 0 mls/hr PROTOCOL PRN IV hypomagnesemia 05/29/25 10:30 06/28/25 10:29 Meclizine HCl (ANTIvert 12.5 mg) 12.5 mg TID PRN PO DIZZINESS 05/28/25 04:30 06/27/25 04:29 Miscellaneous Medication (Famotidine ) 40 mg HS PO 05/28/25 21:00 05/28/25 04:34 DC Miscellaneous Medication (Famotidine ) 40 mg HS PO 05/28/25 21:00 05/28/25 04:35 DC Miscellaneous Medication (Ondansetron HCl ) 8 mg TID PO 05/28/25 09:00 05/28/25 04:45 DC Miscellaneous Medication (Sulfasalazine (Azulfidine)) 500 mg NOON PO 05/28/25 12:00 05/28/25 04:36 DC Morphine Sulfate (morPHINE 2MG SYG) 2 mg Q6H PRN IVP SEVERE PAIN (7-10) 05/28/25 00:30 05/29/25 14:18 DC 05/29/25 10:54 2 MG Ondansetron HCl (zoFRAN 4MG INJ) 4 mg Q6H PRN IVP NAUSEA/VOMITING 05/28/25 00:30 06/27/25 00:29 05/29/25 10:41 4 MG Pantoprazole Sodium (PROTonix 40MG TAB) 40 mg BID PO 05/28/25 09:00 05/28/25 04:43 DC Potassium Chloride 100 ml @ 100 mls/hr AD PRN IV POTASSIUM PROTOCOL 05/29/25 10:30 06/28/25 10:29 Potassium Chloride (K-Dur/Klor-Con 20meq) 20 meq AD PRN PO POTASSIUM PROTOCOL 05/29/25 10:30 06/28/25 10:29 05/29/25 17:00 20 MEQ Potassium Chloride (KCl 10% Elixir 20meq/15ml) 20 meq AD PRN PO POTASSIUM PROTOCOL 05/29/25 10:30 06/28/25 10:29 Promethazine HCl (Phenergan) 25 mg TID PO 05/28/25 09:00 05/28/25 04:43 DC Ropinirole HCl (REquip) 2 mg HS PO 05/28/25 21:00 06/27/25 20:59 05/28/25 21:44 2 MG Sucralfate (Carafate) 1 gm QID PO 05/28/25 09:00 06/27/25 08:59 05/29/25 17:00 1 GM Sulfasalazine (AZULfidine 500MG tab DR) 500 mg HS PO 05/28/25 21:00 06/07/25 20:59 05/28/25 21:42 500 MG Temazepam (restORIL 15 MG CAP) 15 mg HS PRN PO INSOMNIA/SLEEP 05/28/25 00:30 06/27/25 00:29 Topiramate (TopaMAX) 50 mg HS PO 05/28/25 21:00 06/27/25 20:59 05/28/25 23:16 50 MG Tramadol HCl (UltRAM) 50 mg Q6H PRN PO MODERATE PAIN (4-6) 05/28/25 00:30 05/28/25 07:46 DC 05/28/25 00:55 50 MG Tramadol HCl (UltRAM) 50 mg QID PRN PO PAIN1-5 05/28/25 04:30 05/28/25 04:36 DC Trazodone HCl (DesyREL/OlepTRO) 100 mg HS PO 05/28/25 21:00 06/27/25 20:59 05/28/25 21:44 100 MG Diagnostics / Radiology: [COPY/PASTE HERE IF NO REPORTS PLEASE DELETE SECTION] Assessment: [Epigastric abdominal pain Nausea and vomiting T2DM Hypertension, ] Plan: Case discussed with Dr. Hamilton [NPO after midnight Plan for EGD in am Gi Prophylaxis with pantoprazole 40mg iV bid Zofran 4 mg IV q6-8 hours prn nausea and vomiting. Please call with questions, concerns, and change in clinical status Thank you for this consult. ] SANTOS MANNING [employer] May 29, 2025 17:04
[2025-05-30] VITALS (22 sets, daily range): BP systolic 111–154; BP diastolic 42–68; PULSE 59–73; RESP 14–21; TEMP 97.8–98.6; O2SAT 99
[2025-05-30 05:23] LABS: NUCLEATED RED BLOOD CELLS 0.0 % (0.0-0.19); PLATELET COUNT (AUTO) 221.0 K/uL (130-400); RED BLOOD CELL COUNT(AUTO) 3.35 MIL/uL (4.00-5.50); RED CELL DISTRIBUTION WIDTH 13.2 % (11.0-15.5); WHITE BLOOD COUNT (AUTO) 4.1 K/uL (4.8-10.8)
[2025-05-30 05:53] LABS: ASPARTATE AMINOTRANSFERASE 48.0 U/L (10-37); CREATININE 0.6 mg/dL (0.5-1.0); GLOMERULAR FILTR. RATE CALC 105.0 mL/min (>90); GLUCOSE,RANDOM 134.0 mg/dL (70-105); SODIUM SERUM 142.0 mmol/L (136-145); TOTAL PROTEIN, SERUM 6.2 g/dL (6.0-8.3); UREA NITROGEN, BLOOD 6.0 mg/dL (7-18)
[2025-05-30] MEDS: MAGNESIUM 2GM PREMIX 50ML 50 ML IV PRN (06:52)
[2025-05-30] MEDS ORDERED: MAGNESIUM 2GM PREMIX 50ML 50 ML IV SCH (10:00)
--- NOTE | 2025-05-30 10:15 | NUR ---
TAKEN OF UNIT FOR EGD VIA HOSPITAL BED
[2025-05-30] MEDS ORDERED: LIDOCAINE PF 100MG/5ML (2%) SYRINGE 5ML ONE (10:55)
--- NOTE | 2025-05-30 12:02 | NUR ---
RETURN FROM PACU. IN NO DISTRESS; POST OP VITALS TAKEN
--- NOTE | 2025-05-30 12:58 | PN ---
[facility] PROGRESS NOTE Date of Service: May 30, 2025 Time of Service: 12:57 SUBJECTIVE: 05/28 patient is seen and examined at bedside, case discussed with the RN, no acute events overnight, the time of my visit comfortably in bed, alert oriented x3, hemodynamically stable, getting supportive care with IV fluids. Results of CT of the abdomen and pelvis no acute findings, discussed with the patient. Patient with a history of cholecystectomy, however mildly elevated liver enzymes, amylase and lipase ordered, ultrasound of the right upper quadrant ordered, GI consultation requested, we will follow input and recommendation. We will follow acute hepatitis panel as well. Patient taking starting at home, we will hold, continue to monitor liver enzymes in a.m.. 05/29 patient is seen and examined at bedside, case discussed with the RN, no acute events overnight, the time of my visit she is comfortably in bed, alert oriented x3, she has been NPO, denies nausea, no vomiting, no abdominal pain, she feels hungry, liver enzymes trending down, ultrasound of the abdomen showing hepatomegaly with a hepatic steatosis, post cholecystectomy status, no significant interval changes. Liver is bulking caliber, the right hepatic lobe measures 16.4 cm in the craniocaudad dimension. There is increased echogenicity of the hepatic parenchyma. No focal hepatic abnormality intrahepatic biliary ductal dilatation. There is normal spectral Doppler of the main portal vein. The left lobe is obscured by overlying bowel gas. We will order CT of the abdomen and pelvis without contrast, continue to follow amylase and lipase level in a.m.. Continue to follow either enzymes in a.m.. Start clear liquid diet, advanced as tolerated. We will continue to hold atorvastatin,Plan of action discussed with the patient, agreed and understood the information provided. 05/30 patient is seen and examined at bedside, case discussed with the RN, no acute events overnight, patient has remained NPO, scheduled for EGD today. Magnesium level of 1.6, we will give 2 g of magnesium sulfate IV x1. Liver enzymes slowly trending down, continue to follow level in a.m.. Continue to hold atorvastatin. Repeat amylase and lipase level with a normal range. Anticipate discharge home in the next 24 hours if medically stable and no plan for further intervention from GI standpoint. REVIEW OF SYSTEMS 12-point ROS reviewed with the patient. All pertinent positives mentioned above. Otherwise negative, noncontributory, non-pertinent. PHYSICAL EXAM GENERAL APPEARANCE: The patient is awake, alert, and oriented, in no acute cardiopulmonary distress. NEUROLOGICAL: Cranial nerves II-XII grossly intact. Motor is 5/5 in bilateral upper and lower extremities proximal to distal. No sensory deficits. HEENT: Face is symmetric. Pupils are equal and reactive. Extraocular movements are intact. NECK: Supple. No JVD. No thyromegaly. No submental, submandibular, pre- /postauricular, occipital or supraclavicular lymphadenopathy. CHEST: Normal chest expansion. No Telemetry. LUNGS: Absence of any rales, rhonchi or any wheezing. CARDIOVASCULAR: Regular. S1 and S2 normal. No appreciable rubs, murmurs or gallops. ABDOMEN: Obese. Soft, nontender, and nondistended. There is no rebound, voluntary guarding, or rigidity. : Deferred. No Arreola. EXTREMITIES: Non-edematous and not cyanotic. No clubbing. Good capillary refill. SKIN: No skin breakdown. Vital Signs (last 8hr) Date Time Temp Pulse Resp B/P (MAP) Pulse Ox O2 Delivery O2 Flow Rate FiO2 05/30/25 12:00 98.6 70 19 137/57 97 Room Air 21 05/30/25 11:50 98.1 69 18 131/63 99 Room Air 05/30/25 11:45 71 18 134/61 99 Room Air 05/30/25 11:40 73 16 129/65 97 Room Air 05/30/25 11:35 72 15 133/63 100 Nonrebreathing Mask 10.0 100 05/30/25 11:30 71 16 132/68 100 Nonrebreathing Mask 10.0 100 05/30/25 11:25 69 16 134/51 100 Nonrebreathing Mask 10.0 100 05/30/25 11:20 97.9 65 14 131/48 100 Nonrebreathing Mask 10.0 100 05/30/25 11:10 Mask 10.0 05/30/25 11:10 Mask 05/30/25 08:00 98.2 62 19 125/61 100 Room Air LABS: Laboratory: Test 05/30/25 11:41 05/30/25 05:02 05/29/25 05:09 Range/Units Whole Blood Glucose 110 70-110 MG/DL White Blood Count 4.1 L 4.8-10.8 K/uL Red Blood Count 3.35 L 4.00-5.50 MIL/uL Hemoglobin 10.1 L 12.0-16.0 g/dL Hematocrit 30.1 L 36-48 % Mean Corpuscular Volume 89.9 79-99 fL Mean Corpuscular Hemoglobin 30.1 27.0-33.0 pg Mean Corpuscular Hemoglobin Concent 33.6 32.0-36.0 g/dL Red Cell Distribution Width 13.2 11.0-15.5 % Platelet Count 221 130-400 K/uL Mean Platelet Volume 10.4 7.5-10.5 fL Nucleated Red Blood Cells 0.0 0.0-0.19 % Sodium Level 142 136-145 mmol/L Potassium Level 3.9 3.5-5.1 mmol/L Chloride Level 108 101-111 mmol/L Carbon Dioxide Level 27 21-32 mmol/L Blood Urea Nitrogen 6 L 7-18 mg/dL Creatinine 0.6 0.5-1.0 mg/dL Glomerular Filtration Rate Calc 105 >90 mL/min Random Glucose 134 H 70-105 mg/dL Total Calcium 8.4 L 8.5-10.1 mg/dL Magnesium Level 1.60 L 1.80-2.40 mg/dL Total Bilirubin 0.3 # 0.2-1.0 mg/dL Aspartate Amino Transf (AST/SGOT) 48 H 10-37 U/L Alanine Aminotransferase (ALT/SGPT) 167 #H 12-78 U/L Alkaline Phosphatase 217 H 50-136 U/L Total Protein 6.2 6.0-8.3 g/dL Albumin 2.7 L 3.5-5.0 g/dL Amylase Level 29 # 25-115 U/L Lipase 34 16-77 U/L Phosphorus Level 3.4 2.5-4.9 mg/dL Current Medications Medications (Trade) Dose Ordered Sig/Stanton Route PRN Reason Start Time Stop Time Status Last Admin Dose Admin Acetaminophen (TYLenol 325MG TAB) 650 mg Q6H PRN PO FEVER/MILD PAIN LEVEL 1-3 05/28/25 00:30 06/27/25 00:29 05/29/25 19:28 650 MG Acetaminophen (TYLenol 650MG SUPPOSITORY) 650 mg Q6H PRN RC FEVER / MILD PAIN 1-3 IF NPO 05/28/25 00:30 06/27/25 00:29 Atorvastatin Calcium (LIPItor 40MG) 40 mg HS PO 05/28/25 21:00 05/28/25 11:36 DC Clopidogrel Bisulfate (plaVIX 75MG) 75 mg DAILY PO 05/28/25 09:00 06/27/25 08:59 05/29/25 08:53 75 MG Docusate Sodium (COLace 100MG CAP) 100 mg BID PRN PO CONSTIPATION 05/28/25 00:30 06/27/25 00:29 05/29/25 17:08 100 MG Enoxaparin Sodium (Lovenox) 40 mg DAILY SQ 05/28/25 09:00 06/27/25 08:59 05/29/25 08:54 40 MG Famotidine (Pepcid 20mg Tab) 20 mg BID PO 05/28/25 09:00 06/27/25 08:59 05/29/25 19:49 20 MG Gabapentin (NEURontin 300 MG CAP) 300 mg QID PO 05/28/25 09:00 06/27/25 08:59 05/30/25 12:35 300 MG Home Med (Home Medication) 10 each NOON PO 05/28/25 12:00 06/27/25 11:59 Home Med (Home Medication) 25 each NOON PO 05/28/25 12:00 06/27/25 11:59 Home Med (Home Medication) 50 each BID PO 05/28/25 09:00 06/27/25 08:59 Home Med (Home Medication) 290 each DAILY PO 05/28/25 09:00 06/27/25 08:59 Hydroxychloroquine Sulfate (PLAQuenil 200MG) 200 mg BID PO 05/28/25 09:00 06/11/25 08:59 05/29/25 19:49 200 MG Insulin Human Regular (humuLIN R 100 UNIT/ML 3ML) INSULIN SLIDING SCAL... ACHS SQ 05/28/25 07:30 06/27/25 07:29 05/29/25 19:56 6 UNIT Ketorolac Tromethamine (toRADol) 15 mg Q6H PRN IV MODERATE PAIN (4-6) 05/29/25 14:30 06/03/25 14:29 05/30/25 12:34 15 MG Ketorolac Tromethamine (toRADol) 30 mg Q6H PRN IM MODERATE PAIN (4-6) 05/28/25 00:30 05/29/25 14:18 DC 05/29/25 09:12 30 MG Labetalol HCl (TRANdate 20MG SYG) 10 mg Q2H PRN IV SBP GREATER THAN 160 05/28/25 00:30 06/27/25 00:29 Lactated Ringer's 1,000 ml @ 100 mls/hr Q10H IV 05/28/25 00:30 06/27/25 00:29 05/30/25 12:35 100 MLS/HR Lactulose (Constulose 20gm/ 30ml Udcup) 20 gm BID PO 05/28/25 09:00 06/27/25 08:59 05/29/25 19:50 20 GM Levothyroxine Sodium (SYNTHroid 100MCG TAB) 200 mcg SYN PO 05/28/25 06:30 06/27/25 06:29 05/29/25 05:52 200 MCG Lisinopril (Prinivil 5mg) 5 mg DAILY PO 05/28/25 09:00 06/27/25 08:59 05/30/25 09:28 5 MG Magnesium Sulfate 50 ml @ 0 mls/hr PROTOCOL IV 05/28/25 09:00 05/29/25 10:12 DC 05/28/25 08:38 25 MLS/HR Magnesium Sulfate 50 ml @ 0 mls/hr PROTOCOL IV 05/30/25 10:00 05/30/25 09:42 DC Magnesium Sulfate 50 ml @ 0 mls/hr PROTOCOL PRN IV hypomagnesemia 05/29/25 10:30 06/28/25 10:29 05/30/25 06:52 25 MLS/HR Meclizine HCl (ANTIvert 12.5 mg) 12.5 mg TID PRN PO DIZZINESS 05/28/25 04:30 06/27/25 04:29 Miscellaneous Medication (Famotidine ) 40 mg HS PO 05/28/25 21:00 05/28/25 04:34 DC Miscellaneous Medication (Famotidine ) 40 mg HS PO 05/28/25 21:00 05/28/25 04:35 DC Miscellaneous Medication (Ondansetron HCl ) 8 mg TID PO 05/28/25 09:00 05/28/25 04:45 DC Miscellaneous Medication (Sulfasalazine (Azulfidine)) 500 mg NOON PO 05/28/25 12:00 05/28/25 04:36 DC Morphine Sulfate (morPHINE 2MG SYG) 2 mg Q6H PRN IVP SEVERE PAIN (7-10) 05/28/25 00:30 05/29/25 14:18 DC 05/29/25 10:54 2 MG Ondansetron HCl (zoFRAN 4MG INJ) 4 mg Q6H IVP 05/30/25 00:00 06/27/25 00:29 05/30/25 12:34 4 MG Ondansetron HCl (zoFRAN 4MG INJ) 4 mg Q6H PRN IVP NAUSEA/VOMITING 05/28/25 00:30 05/29/25 17:36 DC 05/29/25 17:20 4 MG Pantoprazole Sodium (PROTonix 40MG TAB) 40 mg BID PO 05/28/25 09:00 05/28/25 04:43 DC Potassium Chloride 100 ml @ 100 mls/hr AD PRN IV POTASSIUM PROTOCOL 05/29/25 10:30 06/28/25 10:29 Potassium Chloride (K-Dur/Klor-Con 20meq) 20 meq AD PRN PO POTASSIUM PROTOCOL 05/29/25 10:30 06/28/25 10:29 05/29/25 17:00 20 MEQ Potassium Chloride (KCl 10% Elixir 20meq/15ml) 20 meq AD PRN PO POTASSIUM PROTOCOL 05/29/25 10:30 06/28/25 10:29 Promethazine HCl (Phenergan) 25 mg TID PO 05/28/25 09:00 05/28/25 04:43 DC Ropinirole HCl (REquip) 2 mg HS PO 05/28/25 21:00 06/27/25 20:59 05/29/25 19:50 2 MG Sucralfate (Carafate) 1 gm QID PO 05/28/25 09:00 06/27/25 08:59 05/30/25 12:34 1 GM Sulfasalazine (AZULfidine 500MG tab DR) 500 mg HS PO 05/28/25 21:00 06/07/25 20:59 05/29/25 19:49 500 MG Temazepam (restORIL 15 MG CAP) 15 mg HS PRN PO INSOMNIA/SLEEP 05/28/25 00:30 06/27/25 00:29 Topiramate (TopaMAX) 50 mg HS PO 05/28/25 21:00 06/27/25 20:59 05/29/25 19:49 50 MG Tramadol HCl (UltRAM) 50 mg Q6H PRN PO MODERATE PAIN (4-6) 05/28/25 00:30 05/28/25 07:46 DC 05/28/25 00:55 50 MG Tramadol HCl (UltRAM) 50 mg QID PRN PO PAIN1-5 05/28/25 04:30 05/28/25 04:36 DC Trazodone HCl (DesyREL/OlepTRO) 100 mg HS PO 05/28/25 21:00 06/27/25 20:59 05/29/25 19:49 100 MG DIAGNOSTICS / RADIOLOGY: [ ] ASSESSMENT: Intractable abdominal pain, POA Chronic pain syndrome,, POA, s/p neurostimulator device in the right lower quadrant abdominal wall and no vestibular device in the right gluteal subcutaneous soft tissue Acute nausea and vomiting, POA Gastroparesis Chronic kidney disease stage 2 Diabetes mellitus with hyperglycemia Anemia of chronic renal failure Chronic problem list: CVA, diabetes-type II, high cholesterol, hypothyroid and hypertension PLAN: NEURO: Minimize central acting medications as possible. Fall Precautions. Well lighted room through the day and minimize interruptions through the night to prevent acute delirium. PULMONARY: Supplemental 02 as needed BiPAP as necessary, for respiratory distress Titrate Fio2 to keep Spo2 > or = 90% DuoNebs and CPT as needed IS hourly while awake for pulmonary hygiene prn Out of bed to chair as tolerated Maintain aspiration precautions at all times CARDIOVASCULAR: Follow hemodynamics. Vital signs per facility protocol GI & NUTRITION: Continue nutritional support Aspirations precautions Prokinetic agents and laxatives as needed KIDNEYS & ELECTROLYTES: Strict monitoring of intake and output Daily weights Avoid nephrotoxic agents Monitor electrolytes and replace as needed Goal urine output of 30mL/hr or 0.5mL/kg/hr Medications to be dosed according to renal function. Avoid contrast if possible ENDOCRINE: Maintain blood glucose between 100-180 at all times. Insulin sliding scale for blood glucose management Hypoglycemia and hyperglycemia protocol in place INFECTIOUS DISEASE: Trend temperature, WBC and procalcitonin level Follow cultures, deescalate antibiotics as soon as possible. Panculture if new onset fever HEMATOLOGY & COAGULATION: Monitor H&H. Keep Hgb > 7 Transfuse 1 unit of PRBC for Hgb < 7 Transfuse 1 pack of platelets of platelets < 20, 000 Watch for any signs and symptoms of bleeding SKIN: Pressure ulcer prevention per facility protocol Specialty mattress as needed ORTHO/REHAB Continue PT/OT PRN: MEDICATIONS Tylenol 650 mg po every 4 hrs for fever zofran 4 mg IV every 6 hrs for n/v Hydralazine 5 mg IV every 4 hrs systolic pressure > 160 bowel regiment: lactulose 20 gm PO BID PRN constipation Supportive measures: Continue GI and DVT prophylaxis Disposition: Pending improvement in clinical condition All questions answered time spent: > 35 min ADY NOBLE MD May 30, 2025 12:58
--- NOTE | 2025-05-30 14:28 | HMCIMG ---
EXAMINATION: CT Abdomen and Pelvis without contrast. CLINICAL HISTORY: Transaminitis, hepatomegaly TECHNIQUE: Multiple contiguous axial CT images were obtained through the abdomen and pelvis. Coronal and sagittal reconstructions were also obtained. CT scan done according to ALARA (as low as reasonably achievable). COMPARISON: Prior CT abdomen and pelvis on 05/27/2025 FINDINGS: Included chest is within normal limits. The liver is normal in caliber with uniform decreased density. The gallbladder is surgically absent. The spleen, pancreas, adrenal glands, and kidneys appear within normal limits. Neurostimulator device in the right lower quadrant abdominal wall with lead tips around the anterior aspect of the distal gastric wall. Nerve stimulator device in the right gluteal subcutaneous soft tissues. Fecal matter filled large bowel loops. Rest of the bowel loops are normal in caliber without evidence of obstruction, ileus, or obvious bowel wall thickening. Urinary bladder is well distended with normal wall thickening. Uterus and ovaries are unremarkable. There is no ascites or lymphadenopathy. There are atheromatous wall calcification of the aorta and iliac arteries. No acute or suspicious osseous abnormality. There are multilevel mild degenerative spondylotic changes of the spine IMPRESSION: Hepatic steatosis. Status post cholecystectomy. No bowel obstruction or inflammation. Constipation. No urinary calculi. No hydronephrosis. /Conifer
[2025-05-31] VITALS (8 sets, daily range): BP systolic 107–127; BP diastolic 42–86; PULSE 57–66; RESP 18–21; TEMP 97.9–98.2; O2SAT 97–98
[2025-05-31 05:37] LABS: NUCLEATED RED BLOOD CELLS 0.0 % (0.0-0.19); PLATELET COUNT (AUTO) 236.0 K/uL (130-400); RED BLOOD CELL COUNT(AUTO) 3.26 MIL/uL (4.00-5.50); RED CELL DISTRIBUTION WIDTH 13.0 % (11.0-15.5); WHITE BLOOD COUNT (AUTO) 4.9 K/uL (4.8-10.8)
[2025-05-31 06:01] LABS: ASPARTATE AMINOTRANSFERASE 30.0 U/L (10-37); CREATININE 0.6 mg/dL (0.5-1.0); GLOMERULAR FILTR. RATE CALC 105.0 mL/min (>90); GLUCOSE,RANDOM 131.0 mg/dL (70-105); SODIUM SERUM 142.0 mmol/L (136-145); TOTAL PROTEIN, SERUM 6.4 g/dL (6.0-8.3); UREA NITROGEN, BLOOD 7.0 mg/dL (7-18)
[2025-05-31] MEDS: PoTASSium chloRIDE 20MEQ ER 20 MEQ ERTAB PO ONE (09:38)
[2025-05-31] MEDS: MAGNESIUM OXIDE 400 MG TABLET PO ONE (09:38)
[2025-05-31 13:32] LABS: NUCLEATED RED BLOOD CELLS 0.0 % (0.0-0.19); PLATELET COUNT (AUTO) 226.0 K/uL (130-400); RED BLOOD CELL COUNT(AUTO) 3.3 MIL/uL (4.00-5.50); RED CELL DISTRIBUTION WIDTH 13.2 % (11.0-15.5); WHITE BLOOD COUNT (AUTO) 4.3 K/uL (4.8-10.8)
[2025-05-31 13:45] LABS: ASPARTATE AMINOTRANSFERASE 29.0 U/L (10-37); CREATININE 0.7 mg/dL (0.5-1.0); GLOMERULAR FILTR. RATE CALC 101.0 mL/min (>90); GLUCOSE,RANDOM 191.0 mg/dL (70-105); SODIUM SERUM 140.0 mmol/L (136-145); TOTAL PROTEIN, SERUM 6.6 g/dL (6.0-8.3); UREA NITROGEN, BLOOD 5.0 mg/dL (7-18)
[2025-05-31] MEDS ORDERED: MAGNESIUM 2GM PREMIX 50ML 50 ML IV PRN (14:00)
[2025-05-31] MEDS: MAGNESIUM 2GM PREMIX 50ML 50 ML IV SCH (14:04)
[2025-05-31] MEDS ORDERED: MAGNESIUM 2GM PREMIX 50ML 50 ML IV SCH (14:30)
[2025-05-31 17:28] LABS: NUCLEATED RED BLOOD CELLS 0.0 % (0.0-0.19); PLATELET COUNT (AUTO) 228 K/uL (130-400); RED BLOOD CELL COUNT(AUTO) 3.44 MIL/uL (4.00-5.50); RED CELL DISTRIBUTION WIDTH 13.1 % (11.0-15.5); WHITE BLOOD COUNT (AUTO) 5.1 K/uL (4.8-10.8)
[2025-05-31 17:54] LABS: ASPARTATE AMINOTRANSFERASE 29.0 U/L (10-37); CREATININE 0.7 mg/dL (0.5-1.0); GLOMERULAR FILTR. RATE CALC 101.0 mL/min (>90); GLUCOSE,RANDOM 171.0 mg/dL (70-105); SODIUM SERUM 138.0 mmol/L (136-145); TOTAL PROTEIN, SERUM 6.8 g/dL (6.0-8.3); UREA NITROGEN, BLOOD 7.0 mg/dL (7-18)
[2025-05-31 17:55] LABS: BAND NEUTROPHILS % (MANUAL) 1 % (0-2); EOSINOPHILS % (MANUAL) 2 % (1-6); LYMPHOCYTES % (MANUAL) 44 % (22-44); MAN.DIFF COMMENT-IMPRESSION MANUAL DIFFERENTIAL; MONOCYTES % (MANUAL) 5 % (2-9); PLATELET MORPHOLOGY COMMENT ADEQUATE; SEGMENTED NEUTROPHILS % 48 % (40-70); WBC MORPHOLOGY CONSISTENT W/DIFF
[2025-06-01 03:03] VITALS: BP 119/47; PULSE 60; RESP 20; TEMP 98
[2025-06-01 07:52] LABS: IMMATURE GRANULOCYTE ABSOLUTE 0.02 K/uL (0-1); NUCLEATED RED BLOOD CELLS 0.0 % (0.0-0.19); PLATELET COUNT (AUTO) 221 K/uL (130-400); RED BLOOD CELL COUNT(AUTO) 3.31 MIL/uL (4.00-5.50); RED CELL DISTRIBUTION WIDTH 13.1 % (11.0-15.5); WHITE BLOOD COUNT (AUTO) 7.3 K/uL (4.8-10.8)
[2025-06-01 08:00] VITALS: BP 101/31; PULSE 60; RESP 18; TEMP 97.9
[2025-06-01 08:03] LABS: ASPARTATE AMINOTRANSFERASE 22.0 U/L (10-37); CREATININE 0.7 mg/dL (0.5-1.0); GLOMERULAR FILTR. RATE CALC 101.0 mL/min (>90); GLUCOSE,RANDOM 124.0 mg/dL (70-105); SODIUM SERUM 138.0 mmol/L (136-145); TOTAL PROTEIN, SERUM 6.5 g/dL (6.0-8.3); UREA NITROGEN, BLOOD 8.0 mg/dL (7-18)
[2025-06-01 08:21] VITALS: O2SAT 99
--- NOTE | 2025-06-01 10:20 | PN ---
[facility] PROGRESS NOTE Date of Service: May 31, 2025 Time of Service: 10:19 SUBJECTIVE: 05/28 patient is seen and examined at bedside, case discussed with the RN, no acute events overnight, the time of my visit comfortably in bed, alert oriented x3, hemodynamically stable, getting supportive care with IV fluids. Results of CT of the abdomen and pelvis no acute findings, discussed with the patient. Patient with a history of cholecystectomy, however mildly elevated liver enzymes, amylase and lipase ordered, ultrasound of the right upper quadrant ordered, GI consultation requested, we will follow input and recommendation. We will follow acute hepatitis panel as well. Patient taking starting at home, we will hold, continue to monitor liver enzymes in a.m.. 05/29 patient is seen and examined at bedside, case discussed with the RN, no acute events overnight, the time of my visit she is comfortably in bed, alert oriented x3, she has been NPO, denies nausea, no vomiting, no abdominal pain, she feels hungry, liver enzymes trending down, ultrasound of the abdomen showing hepatomegaly with a hepatic steatosis, post cholecystectomy status, no significant interval changes. Liver is bulking caliber, the right hepatic lobe measures 16.4 cm in the craniocaudad dimension. There is increased echogenicity of the hepatic parenchyma. No focal hepatic abnormality intrahepatic biliary ductal dilatation. There is normal spectral Doppler of the main portal vein. The left lobe is obscured by overlying bowel gas. We will order CT of the abdomen and pelvis without contrast, continue to follow amylase and lipase level in a.m.. Continue to follow either enzymes in a.m.. Start clear liquid diet, advanced as tolerated. We will continue to hold atorvastatin,Plan of action discussed with the patient, agreed and understood the information provided. 05/30 patient is seen and examined at bedside, case discussed with the RN, no acute events overnight, patient has remained NPO, scheduled for EGD today. Magnesium level of 1.6, we will give 2 g of magnesium sulfate IV x1. Liver enzymes slowly trending down, continue to follow level in a.m.. Continue to hold atorvastatin. Repeat amylase and lipase level with a normal range. Anticipate discharge home in the next 24 hours if medically stable and no plan for further intervention from GI standpoint. 05/31 patient remains admitted to the medical floor, case discussed with the RN, no acute events overnight, overall the patient doing better, getting magnesium replacement IV per protocol, liver enzymes trending down, no nausea, no vomiting, no abdominal discomfort.Anticipate discharge home in the next 24 hours if medically stable and no plan for further intervention from GI standpoint. REVIEW OF SYSTEMS 12-point ROS reviewed with the patient. All pertinent positives mentioned above. Otherwise negative, noncontributory, non-pertinent. PHYSICAL EXAM GENERAL APPEARANCE: The patient is awake, alert, and oriented, in no acute cardiopulmonary distress. NEUROLOGICAL: Cranial nerves II-XII grossly intact. Motor is 5/5 in bilateral upper and lower extremities proximal to distal. No sensory deficits. HEENT: Face is symmetric. Pupils are equal and reactive. Extraocular movements are intact. NECK: Supple. No JVD. No thyromegaly. No submental, submandibular, pre- /postauricular, occipital or supraclavicular lymphadenopathy. CHEST: Normal chest expansion. No Telemetry. LUNGS: Absence of any rales, rhonchi or any wheezing. CARDIOVASCULAR: Regular. S1 and S2 normal. No appreciable rubs, murmurs or gallops. ABDOMEN: Obese. Soft, nontender, and nondistended. There is no rebound, voluntary guarding, or rigidity. : Deferred. No Arreola. EXTREMITIES: Non-edematous and not cyanotic. No clubbing. Good capillary refill. SKIN: No skin breakdown. Vital Signs (last 8hr) Date Time Temp Pulse Resp B/P (MAP) Pulse Ox O2 Delivery O2 Flow Rate FiO2 06/01/25 08:00 97.9 60 18 101/31 99 Room Air 06/01/25 03:03 98.1 60 20 119/47 99 Room Air LABS: Laboratory: Test 06/01/25 07:41 06/01/25 04:51 05/31/25 17:10 05/31/25 15:48 Range/Units White Blood Count 7.3 # 4.8-10.8 K/uL Red Blood Count 3.31 L 4.00-5.50 MIL/uL Hemoglobin 10.2 L 12.0-16.0 g/dL Hematocrit 30.0 L 36-48 % Mean Corpuscular Volume 90.6 79-99 fL Mean Corpuscular Hemoglobin 30.8 27.0-33.0 pg Mean Corpuscular Hemoglobin Concent 34.0 32.0-36.0 g/dL Red Cell Distribution Width 13.1 11.0-15.5 % Platelet Count 221 130-400 K/uL Mean Platelet Volume 10.1 7.5-10.5 fL Immature Granulocyte % (Auto) 0.3 0-1 % Neutrophils (%) (Auto) 62.8 40.0-77.0 % Lymphocytes (%) (Auto) 26.5 21.0-51.0 % Monocytes (%) (Auto) 8.0 3.0-13.0 % Eosinophils (%) (Auto) 1.4 0.0-8.0 % Basophils (%) (Auto) 1.0 0.0-5.0 % Neutrophils # (Auto) 4.6 1.8-7.7 K/uL Lymphocytes # (Auto) 1.9 1.0-4.8 K/uL Monocytes # (Auto) 0.6 0.1-1.0 K/uL Eosinophils # (Auto) 0.10 0.00-0.70 K/uL Basophils # (Auto) 0.07 0.00-0.20 K/uL Absolute Immature Granulocyte (auto 0.02 0-1 K/uL Nucleated Red Blood Cells 0.0 0.0-0.19 % Sodium Level 138 136-145 mmol/L Potassium Level 4.0 3.5-5.1 mmol/L Chloride Level 105 101-111 mmol/L Carbon Dioxide Level 27 21-32 mmol/L Blood Urea Nitrogen 8 7-18 mg/dL Creatinine 0.7 0.5-1.0 mg/dL Glomerular Filtration Rate Calc 101 >90 mL/min Random Glucose 124 H 70-105 mg/dL Total Calcium 8.3 L 8.5-10.1 mg/dL Magnesium Level 1.80 1.80-2.40 mg/dL Total Bilirubin 0.2 0.2-1.0 mg/dL Aspartate Amino Transf (AST/SGOT) 22 10-37 U/L Alanine Aminotransferase (ALT/SGPT) 94 H 12-78 U/L Alkaline Phosphatase 177 H 50-136 U/L Total Protein 6.5 6.0-8.3 g/dL Albumin 2.9 L 3.5-5.0 g/dL Whole Blood Glucose 136 H 70-110 MG/DL Segmented Neutrophils % 48 40-70 % Band Neutrophils % 1 0-2 % Lymphocytes % (Manual) 44 22-44 % Monocytes % (Manual) 5 2-9 % Eosinophils % (Manual) 2 1-6 % Differential Comment MANUAL DIFFERENTIAL White Cell Morphology Comment CONSISTENT W/DIFF Platelet Morphology Comment ADEQUATE Red Blood Cell Morphology NORMAL Red Cell Morphology Comment Bedside Glucose Comment Notified Nurse Current Medications Medications (Trade) Dose Ordered Sig/Stanton Route PRN Reason Start Time Stop Time Status Last Admin Dose Admin Acetaminophen (TYLenol 325MG TAB) 650 mg Q6H PRN PO FEVER/MILD PAIN LEVEL 1-3 05/28/25 00:30 06/27/25 00:29 05/29/25 19:28 650 MG Acetaminophen (TYLenol 650MG SUPPOSITORY) 650 mg Q6H PRN RC FEVER / MILD PAIN 1-3 IF NPO 05/28/25 00:30 06/27/25 00:29 Atorvastatin Calcium (LIPItor 40MG) 40 mg HS PO 05/28/25 21:00 05/28/25 11:36 DC Clopidogrel Bisulfate (plaVIX 75MG) 75 mg DAILY PO 05/28/25 09:00 06/27/25 08:59 06/01/25 08:21 75 MG Docusate Sodium (COLace 100MG CAP) 100 mg BID PRN PO CONSTIPATION 05/28/25 00:30 06/27/25 00:29 05/29/25 17:08 100 MG Enoxaparin Sodium (Lovenox) 40 mg DAILY SQ 05/28/25 09:00 06/27/25 08:59 06/01/25 08:20 40 MG Famotidine (Pepcid 20mg Tab) 20 mg BID PO 05/28/25 09:00 06/27/25 08:59 06/01/25 08:21 20 MG Gabapentin (NEURontin 300 MG CAP) 300 mg QID PO 05/28/25 09:00 06/27/25 08:59 06/01/25 08:21 300 MG Home Med (Home Medication) 10 each NOON PO 05/28/25 12:00 06/27/25 11:59 Home Med (Home Medication) 25 each NOON PO 05/28/25 12:00 06/27/25 11:59 Home Med (Home Medication) 50 each BID PO 05/28/25 09:00 06/27/25 08:59 Home Med (Home Medication) 290 each DAILY PO 05/28/25 09:00 06/27/25 08:59 Hydroxychloroquine Sulfate (PLAQuenil 200MG) 200 mg BID PO 05/28/25 09:00 06/11/25 08:59 06/01/25 08:21 200 MG Insulin Human Regular (humuLIN R 100 UNIT/ML 3ML) INSULIN SLIDING SCAL... ACHS SQ 05/28/25 07:30 06/27/25 07:29 05/29/25 19:56 6 UNIT Ketorolac Tromethamine (toRADol) 15 mg Q6H PRN IV MODERATE PAIN (4-6) 05/29/25 14:30 06/03/25 14:29 06/01/25 05:47 15 MG Ketorolac Tromethamine (toRADol) 30 mg Q6H PRN IM MODERATE PAIN (4-6) 05/28/25 00:30 05/29/25 14:18 DC 05/29/25 09:12 30 MG Labetalol HCl (TRANdate 20MG SYG) 10 mg Q2H PRN IV SBP GREATER THAN 160 05/28/25 00:30 06/27/25 00:29 Lactated Ringer's 1,000 ml @ 100 mls/hr Q10H IV 05/28/25 00:30 06/27/25 00:29 05/31/25 19:01 100 MLS/HR Lactulose (Constulose 20gm/ 30ml Udcup) 20 gm BID PO 05/28/25 09:00 06/27/25 08:59 06/01/25 08:20 20 GM Levothyroxine Sodium (SYNTHroid 100MCG TAB) 200 mcg SYN PO 05/28/25 06:30 06/27/25 06:29 06/01/25 05:46 200 MCG Lisinopril (Prinivil 5mg) 5 mg DAILY PO 05/28/25 09:00 06/27/25 08:59 06/01/25 08:21 5 MG Magnesium Sulfate 50 ml @ 0 mls/hr PROTOCOL IV 05/28/25 09:00 05/29/25 10:12 DC 05/28/25 08:38 25 MLS/HR Magnesium Sulfate 50 ml @ 0 mls/hr PROTOCOL IV 05/30/25 10:00 05/30/25 09:42 DC Magnesium Sulfate 50 ml @ 0 mls/hr PROTOCOL IV 05/31/25 09:00 06/30/25 08:59 05/31/25 14:04 25 MLS/HR Magnesium Sulfate 50 ml @ 0 mls/hr PROTOCOL IV 05/31/25 14:30 05/31/25 14:07 DC Magnesium Sulfate 50 ml @ 0 mls/hr PROTOCOL PRN IV hypomagnesemia 05/29/25 10:30 05/31/25 08:53 DC 05/30/25 06:52 25 MLS/HR Magnesium Sulfate 50 ml @ 0 mls/hr PROTOCOL PRN IV SLIDING SCALE COVERAGE 05/31/25 14:00 05/31/25 13:57 DC Meclizine HCl (ANTIvert 12.5 mg) 12.5 mg TID PRN PO DIZZINESS 05/28/25 04:30 06/27/25 04:29 Miscellaneous Medication (Famotidine ) 40 mg HS PO 05/28/25 21:00 05/28/25 04:34 DC Miscellaneous Medication (Famotidine ) 40 mg HS PO 05/28/25 21:00 05/28/25 04:35 DC Miscellaneous Medication (Ondansetron HCl ) 8 mg TID PO 05/28/25 09:00 05/28/25 04:45 DC Miscellaneous Medication (Sulfasalazine (Azulfidine)) 500 mg NOON PO 05/28/25 12:00 05/28/25 04:36 DC Morphine Sulfate (morPHINE 2MG SYG) 2 mg Q6H PRN IVP SEVERE PAIN (7-10) 05/28/25 00:30 05/29/25 14:18 DC 05/29/25 10:54 2 MG Ondansetron HCl (zoFRAN 4MG INJ) 4 mg Q6H IVP 05/30/25 00:00 06/27/25 00:29 06/01/25 05:47 4 MG Ondansetron HCl (zoFRAN 4MG INJ) 4 mg Q6H PRN IVP NAUSEA/VOMITING 05/28/25 00:30 05/29/25 17:36 DC 05/29/25 17:20 4 MG Pantoprazole Sodium (PROTonix 40MG TAB) 40 mg BID PO 05/28/25 09:00 05/28/25 04:43 DC Potassium Chloride 100 ml @ 100 mls/hr AD PRN IV POTASSIUM PROTOCOL 05/29/25 10:30 06/28/25 10:29 Potassium Chloride (K-Dur/Klor-Con 20meq) 20 meq AD PRN PO POTASSIUM PROTOCOL 05/29/25 10:30 06/28/25 10:29 05/29/25 17:00 20 MEQ Potassium Chloride (KCl 10% Elixir 20meq/15ml) 20 meq AD PRN PO POTASSIUM PROTOCOL 05/29/25 10:30 06/28/25 10:29 Promethazine HCl (Phenergan) 25 mg TID PO 05/28/25 09:00 05/28/25 04:43 DC Ropinirole HCl (REquip) 2 mg HS PO 05/28/25 21:00 06/27/25 20:59 05/31/25 20:26 2 MG Sucralfate (Carafate) 1 gm QID PO 05/28/25 09:00 06/27/25 08:59 06/01/25 08:21 1 GM Sulfasalazine (AZULfidine 500MG tab DR) 500 mg HS PO 05/28/25 21:00 06/07/25 20:59 05/31/25 20:25 500 MG Temazepam (restORIL 15 MG CAP) 15 mg HS PRN PO INSOMNIA/SLEEP 05/28/25 00:30 06/27/25 00:29 Topiramate (TopaMAX) 50 mg HS PO 05/28/25 21:00 06/27/25 20:59 05/31/25 20:25 50 MG Tramadol HCl (UltRAM) 50 mg Q6H PRN PO MODERATE PAIN (4-6) 05/28/25 00:30 05/28/25 07:46 DC 05/28/25 00:55 50 MG Tramadol HCl (UltRAM) 50 mg QID PRN PO PAIN1-5 05/28/25 04:30 05/28/25 04:36 DC Trazodone HCl (DesyREL/OlepTRO) 100 mg HS PO 05/28/25 21:00 06/27/25 20:59 05/31/25 20:24 100 MG DIAGNOSTICS / RADIOLOGY: [ ] ASSESSMENT: Intractable abdominal pain, POA Chronic pain syndrome,, POA, s/p neurostimulator device in the right lower quadrant abdominal wall and no vestibular device in the right gluteal subcutaneous soft tissue Acute nausea and vomiting, POA Gastroparesis Chronic kidney disease stage 2 Diabetes mellitus with hyperglycemia Anemia of chronic renal failure Chronic problem list: CVA, diabetes-type II, high cholesterol, hypothyroid and hypertension PLAN: NEURO: Minimize central acting medications as possible. Fall Precautions. Well lighted room through the day and minimize interruptions through the night to prevent acute delirium. PULMONARY: Supplemental 02 as needed BiPAP as necessary, for respiratory distress Titrate Fio2 to keep Spo2 > or = 90% DuoNebs and CPT as needed IS hourly while awake for pulmonary hygiene prn Out of bed to chair as tolerated Maintain aspiration precautions at all times CARDIOVASCULAR: Follow hemodynamics. Vital signs per facility protocol GI & NUTRITION: Continue nutritional support Aspirations precautions Prokinetic agents and laxatives as needed KIDNEYS & ELECTROLYTES: Strict monitoring of intake and output Daily weights Avoid nephrotoxic agents Monitor electrolytes and replace as needed Goal urine output of 30mL/hr or 0.5mL/kg/hr Medications to be dosed according to renal function. Avoid contrast if possible ENDOCRINE: Maintain blood glucose between 100-180 at all times. Insulin sliding scale for blood glucose management Hypoglycemia and hyperglycemia protocol in place INFECTIOUS DISEASE: Trend temperature, WBC and procalcitonin level Follow cultures, deescalate antibiotics as soon as possible. Panculture if new onset fever HEMATOLOGY & COAGULATION: Monitor H&H. Keep Hgb > 7 Transfuse 1 unit of PRBC for Hgb < 7 Transfuse 1 pack of platelets of platelets < 20, 000 Watch for any signs and symptoms of bleeding SKIN: Pressure ulcer prevention per facility protocol Specialty mattress as needed ORTHO/REHAB Continue PT/OT PRN: MEDICATIONS Tylenol 650 mg po every 4 hrs for fever zofran 4 mg IV every 6 hrs for n/v Hydralazine 5 mg IV every 4 hrs systolic pressure > 160 bowel regiment: lactulose 20 gm PO BID PRN constipation Supportive measures: Continue GI and DVT prophylaxis Disposition: Pending improvement in clinical condition All questions answered time spent: > 35 min ADY NOBLE MD Jun 01, 2025 10:19
--- NOTE | 2025-06-01 10:23 | DS ---
Discharge Summary Hospital Course Summary: Patient admitted to the hospital May 27, 2025 with the following history of the present illness: Ms. Talavera is a 59 year old female with history of CVA, diabetes-type II, high cholesterol, hypothyroid and hypertension who presented with [facility] for evaluation of nausea and vomiting. The patient reported that she felt very thirsty since yesterday. She reported epigastric pain and left upper quadrant pain. The patient denied any chest pain, back pain, and or SOB. She stated her blood sugars has been very high and today it was greater than 390. She has not seen her primary care doctor. She is complaint with her medication. V/S: HR 97 bpm, RR 18 bpm, BP 130/70, 100% RA,98.4 F. Lab: Chemistry: Random Glucose 113, RBC 3.82, Hgb 11.8, Hct 34.8, UA: negative. Serology: Negative COVID, Flu, strep swabs. Toxicology: UDS: + Opiates. Abdomen/Pelvis CT: No acute intra-abdominal or pelvic abnormality. In ER the patient received morphine2 mg x 3 doses, NS1 L bolus, Zofran 4 mg, Pepcid 20 mg, and lactulose 20 g. ED provider request the patient be admitted to the hospital under observation for pain management with a diagnosis of acute constipation, stage 2 chronic kidney disease, DM with hyperglycemia, anemia of chronic renal failure stage 2, intractable abdominal pain, gastroparesis. I assessed the patient at bedside in room number ED 10. No family member at bedside. The patient's breathing was even, unlabored, appeared comfortable, and in no distress. The patient reported that she takes tramadol as needed for breakthrough pain. She states that she took tramadol with no relief which prompted to the ED visit. The patient reports that Dr. Omalley did her ab dominal surgery. She reports that her GI doctor is Dr. Chata Vega. I informed her of labs, diagnostics, and plan of care. She verbalized understanding and is in agreement with the plan. Plan and assessment are listed below. HOSPITAL COURSE 05/28 patient is seen and examined at bedside, case discussed with the RN, no acute events overnight, the time of my visit comfortably in bed, alert oriented x3, hemodynamically stable, getting supportive care with IV fluids. Results of CT of the abdomen and pelvis no acute findings, discussed with the patient. Patient with a history of cholecystectomy, however mildly elevated liver enzymes, amylase and lipase ordered, ultrasound of the right upper quadrant ordered, GI consultation requested, we will follow input and recommendation. We will follow acute hepatitis panel as well. Patient taking starting at home, we will hold, continue to monitor liver enzymes in a.m.. 05/29 patient is seen and examined at bedside, case discussed with the RN, no acute events overnight, the time of my visit she is comfortably in bed, alert oriented x3, she has been NPO, denies nausea, no vomiting, no abdominal pain, she feels hungry, liver enzymes trending down, ultrasound of the abdomen showing hepatomegaly with a hepatic steatosis, post cholecystectomy status, no significant interval changes. Liver is bulking caliber, the right hepatic lobe measures 16.4 cm in the craniocaudad dimension. There is increased echogenicity of the hepatic parenchyma. No focal hepatic abnormality intrahepatic biliary ductal dilatation. There is normal spectral Doppler of the main portal vein. The left lobe is obscured by overlying bowel gas. We will order CT of the abdomen and pelvis without contrast, continue to follow amylase and lipase level in a.m.. Continue to follow either enzymes in a.m.. Start clear liquid diet, advanced as tolerated. We will continue to hold atorvastatin,Plan of action discussed with the patient, agreed and understood the information provided. 05/30 patient is seen and examined at bedside, case discussed with the RN, no acute events overnight, patient has remained NPO, scheduled for EGD today. Magnesium level of 1.6, we will give 2 g of magnesium sulfate IV x1. Liver enzymes slowly trending down, continue to follow level in a.m.. Continue to hold atorvastatin. Repeat amylase and lipase level with a normal range. Anticipate discharge home in the next 24 hours if medically stable and no plan for further intervention from GI standpoint. 05/31 patient is seen and examined at bedside, case discussed with the RN, no acute events overnight, tolerating diet, no nausea, no vomiting, no abdominal pain, getting magnesium supplementation IV. Results of EGD showing small hiatal hernia, normal examined duodenum, gastritis, biopsied. 06/01 patient remains alert oriented x3, hemodynamically stable, no acute events overnight, tolerating diet, no nausea, no vomiting, no abdominal pain, magnesium level 1.8, liver enzymes trending down, plan for the patient to be discharged home today. Package Car Driver(s): Academic Specialist Procedure(s): EGD done 05/30/2025 reported as follows: -small hiatal hernia -normal examined duodenum -gastritis. Biopsied. Assessment/Plan: Final Diagnosis Acute gastritis, POA Chronic pain syndrome,, POA, s/p neurostimulator device in the right lower quadrant abdominal wall and no vestibular device in the right gluteal subcutaneous soft tissue Acute nausea and vomiting, POA Gastroparesis Chronic kidney disease stage 2 Diabetes mellitus with hyperglycemia Anemia of chronic renal failure Chronic problem list: CVA, diabetes-type II, high cholesterol, hypothyroid and hypertension Discharge Instructions: The patient to be discharged home today, to follow with primary care physician and GI as an outpatient for results of pathology. Patient to return to hospital if condition changes, patient agreed with the plan and understood the information provided. Home Medications: Active Scripts Lactulose (Lactulose) 10 Gram/15 Ml Solution, 30 ML PO BID for constipation, #500 ML 0 Refills Prov:KENTRELL LE SEMICONDUCTOR BONDER 05/27/25 Reported Medications Clopidogrel Bisulfate (Clopidogrel) 75 Mg Tablet, 1 TAB PO DAILY 05/28/25 Insulin Lispro (Humalog) 100 Unit/Ml Vial, 1 UNITS SQ AD 05/28/25 Levothyroxine Sodium (Levothyroxine Sodium) 200 Mcg Tablet, 1 TAB PO ACBKFST 05/28/25 Gabapentin (Gabapentin) 600 Mg Tablet, 1 TAB PO QID for 30 Days, #90 TAB 0 Refills 05/28/25 Famotidine (Famotidine) 40 Mg Tablet, 40 MG PO HS, TAB 05/28/25 Atorvastatin Calcium (Atorvastatin Calcium) 40 Mg Tablet, 1 TAB PO HS for 30 Days, #30 TAB 0 Refills 05/28/25 Naloxegol Oxalate (Movantik) 25 Mg Tablet, 25 MG PO NOON, TAB 05/28/25 Topiramate (Topiramate) 50 Mg Tablet, 1 TAB PO HS 05/28/25 Sulfasalazine (Azulfidine) 500 Mg Tablet.dr, 500 MG PO HS, TAB 05/28/25 Sulfasalazine (Azulfidine) 500 Mg Tablet, 500 MG PO NOON 05/28/25 Sucralfate (Sucralfate) 1 Gram Tablet, 1 TAB PO QID for 30 Days, #120 TAB 0 Refills 05/28/25 Pantoprazole Sodium (Protonix) 40 Mg Ectab, 1 TAB PO BID 05/28/25 Meclizine HCl (Meclizine HCl) 12.5 Mg Tablet, 12.5 MG PO TID PRN for DIZZINESS, TAB 06/28/23 Tramadol Hcl (Tramadol HCl) 50 Mg Tablet, 50 MG PO QID PRN for PAIN LEVEL 1 TO 5, TAB 06/28/23 Trazodone HCl (Trazodone HCl) 100 Mg Tablet, 100 MG PO HS, TAB 06/28/23 Escitalopram Oxalate (Escitalopram Oxalate) 10 Mg Tablet, 10 MG PO NOON, TAB 06/28/23 Famotidine (Famotidine) 40 Mg Tablet, 40 MG PO HS, TAB 06/28/23 Ropinirole HCl (Ropinirole HCl) 1 Mg Tablet, 2 MG PO HS, TAB 06/28/23 Ondansetron HCl (Ondansetron HCl) 8 Mg Tablet, 8 MG PO TID, TAB 06/28/23 Lisinopril (Lisinopril) 5 Mg Tablet, 5 MG PO DAILY, TAB 06/28/23 Promethazine HCl (Promethazine HCl) 25 Mg Tablet, 25 MG PO TID, TAB 06/28/23 Amitriptyline HCl (Amitriptyline HCl) 50 Mg Tablet, 50 MG PO BID, TAB 06/28/23 Hydroxychloroquine Sulfate (Hydroxychloroquine Sulfate) 200 Mg Tablet, 200 MG PO BID, TAB 06/28/23 Linaclotide (Linzess) 290 Mcg Capsule, 290 MCG PO DAILY, CAP 06/28/23 Discontinued Reported Medications Mv-Mn/Folic Acid/Calcium/Vit K (Women's 50 Plus Multivit Tab) 400 Mcg-500 Mg Calcium-20 Mcg Tablet, 1 EACH PO NOON, TAB 06/28/23 Aspirin (Aspirin) 81 Mg Tab.chew, 81 MG PO HS, TAB.CHEW 06/28/23 Naloxegol Oxalate (Movantik) 25 Mg Tablet, 25 MG PO DAILY, TAB 06/28/23 Cyclobenzaprine HCl (Cyclobenzaprine HCl) 10 Mg Tablet, 10 MG PO TID, TAB 06/28/23 Discontinued Scripts Metoclopramide HCl (Reglan 10 mg Tab) 10 Mg Tablet, 10 MG PO Q6HPRN PRN for Nausea vomiting, #30 TAB Prov:KENTRELL LE SEMICONDUCTOR BONDER 06/15/24 Peg 3350/Na Sulf,Bicarb,Cl/KCl (Golytely/Colyte Soln) 236-22.74G Soln, 4000 ML PO AD, #1 UNIT Mixed as directed, drink one cup every 10-15 minute in until stools are clear Prov:KENTRELL LE SEMICONDUCTOR BONDER 06/15/24 Polyethylene Glycol 3350 (Miralax) 17 Gram Powd.pack, 17 GM PO DAILY for 5 Days, #5 EA Prov:SOILA BEDOYA CHEMICAL LABORATORY ASSISTANT 12/28/23 Ondansetron (Ondansetron Odt) 4 Mg Tab.rapdis, 4 MG PO Q6HPRN PRN for VOMITING, #15 TAB Prov:KENTRELL LE SEMICONDUCTOR BONDER 10/06/23 Benzonatate (Tessalon Perles) 100 Mg Cap, 100 MG PO TID for cough, #30 CAP 0 Refills Prov:KENTRELL LE SEMICONDUCTOR BONDER 10/06/23 Budesonide (Pulmicort Flexhaler) 90 Mcg Aer.pow.ba, 90 MCG IH BID for 10 Days, #1 UNIT Prov:KENTRELL LE SEMICONDUCTOR BONDER 10/06/23 Ibuprofen (Ibuprofen) 600 Mg Tablet, 600 MG PO Q6H PRN for PAIN, #30 TAB Prov:IRIS MARIEE V CHEMICAL LABORATORY ASSISTANT 09/30/23 Loratadine (Loratadine) 10 Mg Tablet, 10 MG PO DAILY, #7 TAB Prov:IRIS MARIEE V CHEMICAL LABORATORY ASSISTANT 09/30/23 Fluticasone Propionate (Flonase Nasal [place]) 50 Mcg/Actuation [place], 50 MCG NASAL DAILY PRN for NASAL CONGESTION for 10 Days, #1 SPRAY Prov:IRIS MARIEE V CHEMICAL LABORATORY ASSISTANT 09/30/23 Benzonatate (Benzonatate) 200 Mg Capsule, 200 MG PO TID PRN for COUGH for 14 Days, #42 CAP Prov:IRIS MARIEE V CHEMICAL LABORATORY ASSISTANT 09/30/23 Time spent arranging discharge: 31-60 minutes ADY NOBLE MD Jun 01, 2025 10:23
--- NOTE | 2025-06-01 10:45 | NUR ---
DISCHARGE DC'D IV. NO COMPLICATIONS. PT AWARE TO FOLLOW UP WITH PCP AND GI SPECIALIST. PHONE NUMBER PROVIDED. ATTEMPTED TO CALL BOTH OFFICE AND NO ANSWER. DENIES PAIN AT THIS TIME. ANSWERED QUESTIONS OR CONCERNS. PT WAITING FOR RIDE TO TAKE PT HOME.
== END 2025-06-01 12:15 | disposition home or self-care (01) | DRG 392 ==
LOC: EDH 18:54 → OBSVTOIN 22:59 → EDHIP 22:59 → 3BH 23:57
PROVIDERS: ADMIT Internal Medicine; ATTEND Internal Medicine
PROC: 0DB68ZX Excision of Stomach, Via Natural or Artificial Opening Endoscopic, Diagnostic (ICD-10-PCS; principal; 2025-05-30)
PROC: 0DB78ZX Excision of Stomach, Pylorus, Via Natural or Artificial Opening Endoscopic, Diagnostic (ICD-10-PCS; 2025-05-30)
DX: K29.00 Acute gastritis without bleeding (principal); K31.84 Gastroparesis; E11.43 Type 2 diabetes mellitus with diabetic autonomic (poly)neuropathy; G89.4 Chronic pain syndrome; I12.9 Hypertensive chronic kidney disease with stage 1 through stage 4 chronic kidney disease, or unspecified chronic kidney disease; D63.1 Anemia in chronic kidney disease; E03.9 Hypothyroidism, unspecified; E11.22 Type 2 diabetes mellitus with diabetic chronic kidney disease; E11.65 Type 2 diabetes mellitus with hyperglycemia; E78.00 Pure hypercholesterolemia, unspecified; K44.9 Diaphragmatic hernia without obstruction or gangrene; N18.2 Chronic kidney disease, stage 2 (mild); K76.0 Fatty (change of) liver, not elsewhere classified; K59.00 Constipation, unspecified; Z86.73 Personal history of transient ischemic attack (TIA), and cerebral infarction without residual deficits; Z90.49 Acquired absence of other specified parts of digestive tract
CPT/HCPCS: 36415; 43239; 74176; 74177; 76705; 80048; 80053; 80074; 80305; 81003; 82010; 82150; 82948; 83036; 83690; 83735; 84100; 84443; 84484; 85025; 85027; 87635; 87804; 87880; 88305; 88312; 93005; 96374; 96375; 99285; A4606; G0378; J1650; J1815; J1885; J2003; J2270; J2405; J2704; J3475; J3490; J7030; J7120; Q9967; A4215; A4222; A4223; A4510; A4620